=== PATIENT | male | born 1950 | race Caucasian/White ===

== ENCOUNTER → 2019-12-10 11:53 | Outpatient (BNVA) | payer MEDICARE, OTHER, SELFPAY | PROVIDERS: Family Provider Family Medicine; PCP Family Medicine; Visit Provider Nurse Practitioner Family | DX: I95.2 Hypotension due to drugs (principal); E11.9 Type 2 diabetes mellitus without complications; E78.5 Hyperlipidemia, unspecified; R23.4 Changes in skin texture; B35.1 Tinea unguium | CPT/HCPCS: 36415; 80053; 80061; 83036; 84439; 84443 ==

== ENCOUNTER 2020-01-20 15:43 | Outpatient (CLI) | payer MEDICARE, OTHER, SELFPAY ==
--- NOTE | 2020-01-20 16:30 | USCV_ITS ---
AdriannaJona Age: 69 Gender: M : 1950 Exam Date: 01/20/2020 16:22 Ordering Phys: Carolyn Vaughn MD ([email or web address]) Technologist: Radha Rodriguez Exam Location: [facility] – [place] Indication: AV STENOSIS BP: 197 / 113 HR: 88 Rhythm: Sinus Technical Quality: Fair MEASUREMENTS (Male / Female) Normal Values 2D ECHO LV Diastolic Diameter PLAX 4.8 cm 4.2 - 5.9 / 3.9 - 5.3 cm LV Systolic Diameter PLAX 3.4 cm IVS Diastolic Thickness 1.2 cm 0.6 - 1.0 / 0.6 - 0.9 cm IVS Systolic Thickness 1.8 cm LVPW Diastolic Thickness 1.2 cm 0.6 - 1.0 / 0.6 - 0.9 cm LVPW Systolic Thickness 1.6 cm LVOT Diameter 2.0 cm LV Ejection Fraction 2D Teich 57.3 % LV Ejection Fraction MOD 2C 74.5 % LV Ejection Fraction 2C AL 76.2 % LA Diameter 4.5 cm LA Width 3.2 cm LA Height 4.1 cm RA Width 3.4 cm RA Height 2.3 cm Aorta at Sinotubular Diameter 3.3 cm M-MODE LV Diastolic Diameter MM 5.2 cm 4.2 - 5.9 / 3.9 - 5.3 cm LV Systolic Diameter MM 3.8 cm LV Ejection Fraction MM Teich 51.0 % IVS Diastolic Thickness MM 1.2 cm 0.6 - 1.0 / 0.6 - 0.9 cm IVS Systolic Thickness MM 1.6 cm LVPW Diastolic Thickness MM 1.1 cm 0.6 - 1.0 / 0.6 - 0.9 cm LVPW Systolic Thickness MM 1.6 cm Aortic Annulus Diameter 2.9 cm LA Ao Ratio MM 1.6 MV E Point Septal Separation 0.5 cm DOPPLER AV Peak Velocity 250.0 cm/s LVOT Peak Velocity 90.0 cm/s AV Area Cont Eq vti 1.0 cm squared AV Area Cont Eq pk 1.2 cm squared MV Area PHT 3.5 cm squared Mitral E to A Ratio 0.7 MV E' Velocity 7.0 cm/s Mitral E to MV E' Ratio 11.0 Mitral E to LV E' Lateral Ratio 13.0 Mitral E to LV E' Septal Ratio 9.6 TR Peak Velocity 261.2 cm/s TR Peak Gradient 27.3 mmHg TR Mean Velocity 196.1 cm/s TR Mean Gradient 16.3 mmHg TR Velocity Time Integral 74.4 cm TV Peak E Velocity 72.0 cm/s Right Atrial Pressure 3.0 mmHg Pulmonary Artery Systolic Pressu 30.3 mmHg PV Peak Velocity 67.0 cm/s RV Acceleration Time 0.1 s RV Ejection Time 0.3 s RV AcT/ET 0.4 FINDINGS Left Ventricle Normal left ventricular cavity size. Mildly increased left ventricular wall thickness. Normal left ventricular systolic function. Left ventricular ejection fraction is estimated at 62 %. No regional wall motion abnormalities. Grade 1 diastolic dysfunction. Right Ventricle Normal right ventricular size and systolic function. Right ventricular systolic pressure 30.3 mmHg. Right Atrium Right atrium not well visualized. Right atrial pressure estimated at 3 mmHg. Left Atrium Left atrium not well visualized. Probably upper normal left atrial size. Mitral Valve Mild mitral annular calcification. No mitral valve stenosis. Mild mitral valve regurgitation. Aortic Valve Moderately thickened and calcified trileaflet aortic valve. Moderate aortic valve stenosis, peak velocity 2.5 m/s, peak gradient 24 mmHg, mean gradient 14 mmHg, RAAD 0.99 cm squared. Mild aortic valve regurgitation. Tricuspid Valve Structurally normal tricuspid valve. No tricuspid valve stenosis. Mild tricuspid valve regurgitation. Pulmonic Valve Pulmonic valve not well visualized. Trace pulmonary valve regurgitation. Pericardium No pericardial effusion. Aorta Normal-sized aortic root. Ascending aorta mildly dilated measured anteroposteriorly at 38 mm. CONCLUSIONS 1. Normal left ventricular cavity size with mildly increased left ventricular wall thickness. Normal left ventricular systolic function. Left ventricular ejection fraction is estimated at 62 %. No regional wall motion abnormalities. Grade 1 diastolic dysfunction. 2. Normal right ventricular size and systolic function. 3. Mild mitral valve regurgitation. 4. Moderate aortic valve stenosis, peak velocity 2.5 m/s, peak gradient 24 mmHg, mean gradient 14 mmHg, RAAD 0.99 cm squared. Mild aortic valve regurgitation. 5. Pulmonary artery pressure estimated at 30 mmHg. 6. When compared to prior echocardiogram dated 09/29/2018, there may not have been any significant change. Carolyn Vaughn MD (Electronically Signed) Final Date: 24 January 2020 10:58 S
== END 2020-01-20 15:44 | disposition home or self-care (01) ==
LOC: US 15:45
PROVIDERS: Family Provider Family Medicine; PCP Family Medicine; Visit Provider Internal Medicine Cardiovascular Disease
DX: I08.3 Combined rheumatic disorders of mitral, aortic and tricuspid valves (principal)
CPT/HCPCS: 93306

== ENCOUNTER → 2020-04-27 09:11 | Outpatient (BNVA) | payer MEDICARE, OTHER, SELFPAY | PROVIDERS: Family Provider Family Medicine; PCP Family Medicine; Referring Provider Family Medicine; Visit Provider Podiatrist Foot & Ankle Surgery | DX: M25.571 Pain in right ankle and joints of right foot (principal); L97.309 Non-pressure chronic ulcer of unspecified ankle with unspecified severity; M21.41 Flat foot [pes planus] (acquired), right foot | CPT/HCPCS: 73610 ==

== ENCOUNTER 2020-06-01 06:59 | Outpatient (CLI) | payer MEDICARE, OTHER, SELFPAY ==
--- NOTE | 2020-06-01 07:20 | NMCV_ITS ---
NM anish perf SPECT r/s* [id number] Jona Rodas Age: 69 Gender: M : 1950 Exam Date: 06/01/2020 08:42 Ordering Phys: Carolyn Vaughn MD ([email or web address]) Technologist: JUDY Alonzo Exam Location: [facility] Indications: DYSPNEA ON EXERTION STRESS TEST Please see separate stress test report in [facility] for full findings IMAGE PROTOCOL Rest/Stress 1 Lexiscan Day Radiopharmaceutical Dose (mCi) Administration Site Administered by Rest: Tc-99m 10.9 IV JUDY Brock Sestamibi Stress:Tc-99m 32.9 IV JUDY Brock Sestamibi Rest: 01-Jun-2020 60 Discovery 630 Stress: 01-Jun-2020 30 Discovery 630 0.4mg Lexiscan. Supine position only as patient was unable to lay prone. SPECT RESULTS Technical Quality: Excellent Raw Data Analysis: Normal Image Corrections: No attenuation or motion correction applied Summed Stress Score: 8 Summed Rest Score: 4 Summed Difference Score: 4 PERFUSION FINDINGS Medium sized perfusion abnormality of mild to moderate severity of basal to mid inferior, mid inferoseptal, apical septal and apical ibrahim on rest images with mild reversibility in mid inferoseptal and mid to apical inferolateral ibrahim. FUNCTIONAL RESULTS (calculated via Gated SPECT) Stress Image LV EF (%): 39 Stress EDV (mL):187 TID: 1.04 Stress ESV (mL):114 FUNCTIONAL FINDINGS: The left ventricle is normal in size. Transient Ischemia Dilatation of 1. There is moderately reduced left ventricular global systolic function. The left ventricular ejection fraction is moderately reduced with a value of 39%. There is moderate hypokinesis of inferior and apical ibrahim. Moderately increased end-diastolic and end-systolic volumes. IMPRESSIONS 1. Medium sized perfusion abnormality of mild to moderate severity of basal to mid inferior, mid inferoseptal, apical septal and apical ibrahim on rest images with mild reversibility in mid inferoseptal and mid to apical inferolateral ibrahim. 2. 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 There is small reversible ischemia in circumflex artery territory. In absence of prone imaging, attenuation artifact cannot be completely ruled out. 3. The left ventricular ejection fraction is moderately reduced with a value of 39%. 4. There is moderate hypokinesis of inferior and apical ibrahim. 5. Scan indicates low to moderate risk for cardiac events. 6. No prior similar studies to compare. Carolyn Vaughn MD (Electronically Signed) Final Date: 05 June 2020 13:04 S
--- NOTE | 2020-06-01 07:20 | ECG_ITS ---
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 Interpretive Statements NAME OF STUDY: LEXISCAN SESTAMIBI STRESS TEST INDICATION: HILL PROCEDURE: At the baseline, the blood pressure was 181/102 mmHg with a heart rate of 88 bpm. The electrocardiogram showed normal sinus rhythm, right bundle branch block and left anterior fascicular block. The Lexiscan was infused over a period of 20 seconds. A total of 0.4 milligrams of Lexiscan was infused. The stress phase was continued for a total of 5 minutes. Heart rate at the end of the stress phase was 88 bpm with a blood pressure 149/83 mmHg. The EKG at the peak infusion revealed no significant ST-T wave changes. Sestamibi was injected 20 seconds after the Lexiscan infusion. Blood pressure at the end of the recovery phase was 148/85 mmHg with a heart rate of 90 beats per minute. CONCLUSION: 1. No significant EKG changes with the LexiScan infusion. 2. No LexiScan induced chest pain or cardiac arrhythmia. 3. Normal blood pressure and heart rate response. 4. Sestamibi/sestamibi perfusion scan pending; see separate report. Electronically Signed On 06-02-2020 13:15:30 CDT by Carolyn Vaughn M.D. [id number]
[2020-06-01 07:49] VITALS: BMI 30.9
[2020-06-01] MEDS: regadenoson 0.4 Mg/5 ml Syringe IVP ×2 (09:26→09:55)
[2020-06-01 09:58] VITALS: BP 148/85; PULSE 84
== END 2020-06-01 07:00 | disposition home or self-care (01) ==
PROVIDERS: Family Provider Family Medicine; PCP Family Medicine; Visit Provider Internal Medicine Cardiovascular Disease
DX: R06.00 Dyspnea, unspecified (principal)
CPT/HCPCS: 78452; 93017; A9500; J2785

== ENCOUNTER → 2020-06-27 09:40 | Outpatient (BNVA) | payer MEDICARE, OTHER, SELFPAY | PROVIDERS: Family Provider Family Medicine; PCP Family Medicine; Visit Provider Family Medicine | DX: E11.9 Type 2 diabetes mellitus without complications (principal); I10 Essential (primary) hypertension; E11.65 Type 2 diabetes mellitus with hyperglycemia; Z79.4 Long term (current) use of insulin | CPT/HCPCS: 83036 ==

== ENCOUNTER → 2020-08-07 08:49 | Outpatient (BNVA) | payer MEDICARE, OTHER, SELFPAY | PROVIDERS: Family Provider Family Medicine; PCP Family Medicine; Visit Provider Nurse Practitioner Family | DX: Z20.828 Contact with and (suspected) exposure to other viral communicable diseases (principal) | CPT/HCPCS: 87635 ==

== ENCOUNTER 2020-12-05 14:21 | Emergency (ER) | payer MEDICARE, OTHER, SELFPAY ==
[2020-12-05 14:25] VITALS: BP 139/80; PULSE 87; RESP 18; TEMP 36.6; O2SAT 92; BMI 31.5
[2020-12-05 14:33] VITALS: BP 139/80; PULSE 93; RESP 18; O2SAT 92
--- NOTE | 2020-12-05 14:41 | ECG_ITS ---
[facility] Test Date: 2020-12-05 Pat Name: Jona Rodas Department: Room: Gender: Male Development Intern: : 1950 Requested By: Maxi Rudolph Order Number: [id number] Hong MD: Carolyn Vaughn M.D. Measurements Intervals [place] Rate: 86 P: 40 LA: 126 QRS: -47 QRSD: 140 T: 24 QT: 392 QTc: 470 Interpretive Statements SINUS RHYTHM INTRAVENTRICULAR CONDUCTION DELAY [130+ ms QRS DURATION] MODERATE VOLTAGE CRITERIA FOR LVH, CONSIDER NORMAL VARIANT [MEETS CRITERIA IN ONE OF: R(aVL), S(V1), R(V5), R(V5/V6)+S(V1)] POSSIBLE SEPTAL MYOCARDIAL INFARCTION , OF INDETERMINATE AGE [30 ms Q WAVE IN V1/V2] Compared to ECG 08/23/2019 12:06:48 Myocardial infarct finding now present Ventricular premature complex(es) no longer present Left-axis deviation no longer present Electronically Signed On 12-05-2020 19:58:47 [employer] by Carolyn Vaughn M.D. [email or web address]
--- NOTE | 2020-12-05 14:41 | XRR_ITS ---
PROCEDURE INFORMATION: Exam: XR Chest, 1 View Exam date and time: 12/05/2020 3:05 PM Age: 70 years old Clinical indication: Other: Tia/ reduced breath sounds TECHNIQUE: Imaging protocol: XR of the chest Views: 1 view. COMPARISON: CR Chest 1 [place] [id number] 08/23/2019 11:46 AM FINDINGS: Lungs: Low lung volumes are seen. The lungs are otherwise clear. No consolidation. Pleural space: Elevation of the right hemidiaphragm is seen. No pleural effusion. No pneumothorax. Heart/Mediastinum: Unremarkable. No cardiomegaly. Bones/joints: Metallic left shoulder arthroplasty is present in good position. Other findings: This finding is stable since prior examination. XR/XR chest 1V portable [id number] IMPRESSION: 1. Elevation of the right hemidiaphragm. 2. Low lung volumes. 3. Negative for acute abnormalities. 4. Stable metallic left shoulder arthroplasty in good position
--- NOTE | 2020-12-05 14:41 | CT_ITS ---
WS: [id number] CT HEAD NONCONTRAST HISTORY: Symptoms of Acute Stroke TECHNIQUE: Contiguous axial imaging performed through the brain in 2.5 mm imaging. Bone and soft tiss ue windows. Sagittal and coronal reformats reviewed. All CT scans at [facility] use at le ast one of these dose optimization techniques: automated exposure control; mA and/or kV adjustment pe r patient size (includes targeted exams where dose is matched to clinical indication); or iterative r econstruction. DLP: 3401.81 mGy.cm COMPARISON: 08/23/2019 This study significantly limited by motion artifact. 3 attempts at achieving study without motion wer e unsuccessful. There are no large areas of hemorrhage. Small hemorrhage would easily be obscured. There is significant atrophy and chronic white matter disease. Most significant ischemic changes in t he RIGHT frontal white matter. Ventricles: Normal size with no hydrocephalus. Paranasal sinuses: As visualized are clear. Mastoid air cells: Well pneumatized. Calvarium and scalp: Skull is intact with no soft tissue edema or swelling. CT/CT head wo con* [id number] IMPRESSION: 1. This study is significantly limited by motion despite multiple attempts. He morrhage and acute areas of ischemia would easily be obscured. 2. Atrophy and chronic ischemic disease.
--- NOTE | 2020-12-05 14:45 | ED_ITS ---
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 He says he has a cataract in that eye however he usually has poor vision out of that eye but today his eye went dark for a few minutes. He called EMS and by the time they got there his vision was returning and is now normal. He offers no new symptoms in the ER at this time. He said he was last seen for this right carotid artery issue by Dr. Mazariegos a couple years ago who recommended not operating on it as well as the blindness last happened 2 years ago and they said it was likely related to his stroke. Radiation: non-radiation Severity: moderate Associated symptoms: Reports no associated symptoms; Deny chest pain, confusion, dyspnea, headache(s), rash or palpitations Review of Systems General: Reports: 10 or more systems reviewed and unremarkable except in HPI and below Const: Denies: fatigue Eyes: Denies: change in vision, blurry vision or eye redness ENMT: Denies: throat pain, swelling of lips/tongue, ear or mastoid pain or nasal congestion Card: Denies: chest pain, palpitations, irregular heart rhythm, edema, dyspnea on exertion or orthopnea Resp: Denies: dyspnea, productive cough or non-productive cough GI: Denies: abdominal pain, diarrhea or GI cramping : Denies: flank pain, urinary frequency or urinary urgency Musc: Denies: neck pain, back pain, extremity pain, joint pain, joint redness, limited range of motion or muscle weakness Skin/Breast: Denies: rash, pruritus, erythema, skin pain or skin tenderness Neuro: Denies: headache(s), numbness in extremities, weakness in extremities, sensory changes, difficulty walking, dizziness, confusion or Slurred speech present Psych: Denies: anxiety or depression Endo: Denies: polyuria All/Imm: Denies: urticaria, throat swelling or tongue swelling PFSH ED PFSH: Medical History (Updated 12/05/20 @ 20:25 by Maxi Rudolph MD) Aortic stenosis, moderate BPH without obstruction/lower urinary tract symptoms Hodgkin disease Hyperlipidemia Hypertension PVD (peripheral vascular disease) Type 2 diabetes mellitus with hyperglycemia Surgical History History of arthroscopic knee surgery LEFT History of carpal tunnel surgery BILATERAL History of radical dissection of right side of neck History of shoulder surgery MULTIPLE ON LEFT History of total knee replacement RIGHT Family History Father Hypertension Parkinson disease Brother Diabetes Social History Smoking and tobacco status: former smoker Quit status (tobacco): has quit using tobacco Former quit date comment: AT AGE 21 Alcohol intake: never Physical Exam Const: COMMON NORMALS: no acute distress, average body habitus, patient oriented x3, no limitations, healthy appearing, alert and well nourished GENERAL APPEARANCE: cooperative, comfortable, well kempt and well developed ORIENTATION/CONSCIOUSNESS: Yes awake, Yes oriented to person, Yes oriented to place and Yes oriented to time HENMT: COMMON NORMALS: normocephalic, external ears normal and Normal external nose present HEAD & SCALP: normal to inspection and normocephalic NOSE: Normal external nose present EXTERNAL EAR: Yes external ears normal MOUTH: Normal oral and palatal mucosa present THROAT: posterior oropharynx normal Eye: COMMON NORMALS: Equal, round and reactive pupils present and EOMs intact bilaterally GENERAL EYE: appearance normal, both eyes and all related structures PUPIL: Yes Equal, round and reactive pupils present Neck/C-Spine: COMMON NORMALS: full ROM, no lymphadenopathy, no meningeal signs and no JVD GENERAL: Yes normal visual inspection Lymph: LYMPHATIC: no lymphadenopathy noted Chest: COMMONS NORMALS: normal inspection of the chest and normal palpation of entire chest wall Resp: COMMON NORMALS: normal respiratory effort, No retractions, No use of acc essory muscles, clear to auscultation bilaterally and percussion normal EFFORT & INSPECTION: Yes able to speak in complete sentences AUSCULTATION: clear to auscultation bilaterally PERCUSSION: percussion normal Cardio: COMMON NORMALS: no JVD, regular rate, regular rhythm, S1 normal heart sound present, S2 normal heart sound present and Peripheral pulses 2+ throughout RATE: regular rate RHYTHM: regular rhythm HEART SOUNDS: S1 normal heart sound present and S2 normal heart sound present PERIPHERAL PULSES: Peripheral pulses 2+ throughout GI: COMMON NORMALS: Normal to inspection, nondistended, normoactive bowel sounds present, Soft to palpation, non-tender and no masses INSPECTION: Yes normal to inspection PALPATION: Yes Soft to palpation : COMMON NORMALS: Yes no CVA tenderness BLADDER/KIDNEY EXAM: Yes no CVA tenderness Back/Pelvis: COMMON NORMALS: no CVA tenderness, thoracic and lumbar spine normal to inspection, no thoracic nor lumbar tenderness and thoraco-lumbar ROM normal Extremity: COMMON NORMALS: normal to inspection, full ROM, capillary refill normal, no joint enlargement and no pedal edema GENERAL: Yes normal exam except as noted Neuro: COMMON NORMALS: patient oriented x3, CN's II-XII intact bilaterally, moves all extremities, no focal motor deficits, no sensory deficits noted and gait normal SENSORIUM/ORIENTATION: Yes alert, Yes oriented to person, Yes oriented to place and Yes oriented to time MENINGEAL SIGNS: Yes no meningeal signs OTHER: He has chronic poor vision in his right eye but he is able to read small print in the eye such as my name from the ID tag with the other eye covered. He has chronic right-sided weakness and facial droop with atrophy of muscles in his right upper extremity most prominent. He says the weakness is unchanged from his baseline. He is normally able to walk around his house just fine and he continues to feel that way. Psych: COMMON NORMALS: mental status grossly normal, Normal thought process present, cooperative, normal affect and speech normal APPEARANCE: Yes well kempt ATTITUDE: Yes calm SPEECH: Yes normal speech THOUGHT PROCESS: Normal thought process present Skin: COMMON NORMALS: no rashes or lesions noted GENERAL SKIN EXAM: no rashes or lesions noted Course ED course: The patient came in with a 3-minute episode of right-sided blindness at home. 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 This is stable from the previous head and neck CT angiogram. He has already been told that this cannot be corrected. Discussed with Dr. Purvis who recommended since the symptoms have resolved to start him on Plavix 75 mg daily for 3 weeks and have him follow-up with an respiratory therapy instructor. I have placed a case management referral to help with this. If symptoms return he is to return to the ER. He understands and will follow plan. Vital Signs: Vital signs: Vital Signs Temperature 97.9 F 12/05/20 14:25 Pulse Rate 87 12/05/20 20:42 Respiratory Rate 18 12/05/20 20:42 Blood Pressure 170/95 12/05/20 20:42 Pulse Oximetry 94 12/05/20 20:42 MDM - General Adult Lab Data: Labs: Lab Results 12/05/20 12/05/20 12/05/20 Range/Units 14:40 14:40 14:40 WBC 13.8 H (4.0-10.0) 10^3/ uL RBC 4.27 (4.1-5.3) 10^6/u L Hgb 13.7 (11.7-16.6) g/dL Hct 41.0 L (42.0-52.0) % MCV 96.0 H (80-94) fL MCH 32.1 (28.0-34.0) pg MCHC 33.4 (30.0-36.0) g/dL RDW 11.9 L (12.1-15.1) % Plt Count 282 (130-400) 10^3/c mm MPV 9.0 (7.4-10.4) fL Neut % (Auto) 74.4 % Lymph % (Auto) 12.4 % [place] % (Auto) 10.6 % Eos % (Auto) 1.5 % Baso % (Auto) 0.5 % Neut # (Auto) 10.27 H (1.8-7.7) 10^3/u L Lymph # (Auto) 1.7 (0.8-4.8) 10^3/u L [place] # (Auto) 1.5 H (0.2-0.9) 10^3/u L Eos # (Auto) 0.2 (0.0-0.8) 10^3/u L Baso # (Auto) 0.1 (0.0-0.1) 10^3/u L Nucleated RBC % (a uto) 0 % Nucleated RBCs # 0.0 /100WBC ESR (0-10) mm/hr PT 14.00 (12.1-14.9) SECO NDS INR 1.05 (0.8-1.2) APTT 29.0 (23.9-36.7) SECO NDS Sodium 132 L (136-145) mmol/L Potassium 3.7 (3.5-5.1) mmol/L Chloride 93 L (98-107) mmol/L Carbon Dioxide 30 H (22-29) mmol/L Anion Gap 12.7 (5-19) BUN 14 (8-23) mg/dL Creatinine 1.0 (0.7-1.2) mg/dL GFR Calculation 74.1 L (90-130) mL/min Glucose 89 (65-115) mg/dL POC Glucose (70-110) mg/dL Calculated Osmolal ity 274 L (285-295) mOsm/k g Calcium 9.8 (8.5-10.5) mg/dL Total Bilirubin 0.7 (0.15-1.2) mg/dL AST 27 (0-40) U/L ALT 23 (0-41) U/L Alkaline Phosphata se 56 (40-130) IU/L Total Protein 6.7 (6.6-8.7) g/dL Albumin 4.0 (3.5-5.2) g/dL Globulin 2.7 (1.3-4.6) g/dL Urine Color (Yellow) Urine Appearance (CLEAR) Urine pH (5-7) Ur Specific Gravit y (1.005-1.030) Urine Protein (Negative) Urine Glucose (UA) (Normal) Urine Ketones (Negative) Urine Blood (Negative) Urine Nitrate (Negative) Urine Bilirubin (Negative) Urine Urobilinogen (Negative) mg/dL Ur Leukocyte Brittney ase (Negative) Urine Opiates Scre en (Negative) ng/mL Ur Barbiturates Sc reen (Negative) ng/mL Ur Phencyclidine S crn (Negative) ng/mL Ur Amphetamines Sc reen (Negative) ng/mL U Benzodiazepines Scrn (Negative) ng/mL Urine Cocaine Scre en (Negative) ng/mL U Marijuana (THC) Screen (Negative) ng/mL 12/05/20 12/05/20 12/05/20 Range/Units 14:40 14:58 16:30 WBC (4.0-10.0) 10^3/ uL RBC (4.1-5.3) 10^6/u L Hgb (11.7-16.6) g/dL Hct (42.0-52.0) % MCV (80-94) fL MCH (28.0-34.0) pg MCHC (30.0-36.0) g/dL RDW (12.1-15.1) % Plt Count (130-400) 10^3/c mm MPV (7.4-10.4) fL Neut % (Auto) % Lymph % (Auto) % [place] % (Auto) % Eos % (Auto) % Baso % (Auto) % Neut # (Auto) (1.8-7.7) 10^3/u L Lymph # (Auto) (0.8-4.8) 10^3/u L [place] # (Auto) (0.2-0.9) 10^3/u L Eos # (Auto) (0.0-0.8) 10^3/u L Baso # (Auto) (0.0-0.1) 10^3/u L Nucleated RBC % (a uto) % Nucleated RBCs # /100WBC ESR 14 H (0-10) mm/hr PT (12.1-14.9) SECO NDS INR (0.8-1.2) APTT (23.9-36.7) SECO NDS Sodium (136-145) mmol/L Potassium (3.5-5.1) mmol/L Chloride (98-107) mmol/L Carbon Dioxide (22-29) mmol/L Anion Gap (5-19) BUN (8-23) mg/dL Creatinine (0.7-1.2) mg/dL GFR Calculation (90-130) mL/min Glucose (65-115) mg/dL POC Glucose 90 (70-110) mg/dL Calculated Osmolal ity (285-295) mOsm/k g Calcium (8.5-10.5) mg/dL Total Bilirubin (0.15-1.2) mg/dL AST (0-40) U/L ALT (0-41) U/L Alkaline Phosphata se (40-130) IU/L Total Protein (6.6-8.7) g/dL Albumin (3.5-5.2) g/dL Globulin (1.3-4.6) g/dL Urine Color (Yellow) Urine Appearance (CLEAR) Urine pH (5-7) Ur Specific Gravit y (1.005-1.030) Urine Protein (Negative) Urine Glucose (UA) (Normal) Urine Ketones (Negative) Urine Blood (Negative) Urine Nitrate (Negative) Urine Bilirubin (Negative) Urine Urobilinogen (Negative) mg/dL Ur Leukocyte Brittney ase (Negative) Urine Opiates Scre en Negative (Negative) ng/mL Ur Barbiturates Sc reen Negative (Negative) ng/mL Ur Phencyclidine S crn Negative (Negative) ng/mL Ur Amphetamines Sc reen Negative (Negative) ng/mL U Benzodiazepines Scrn Negative (Negative) ng/mL Urine Cocaine Scre en Negative (Negative) ng/mL U Marijuana (THC) Screen Positive H (Negative) ng/mL 12/05/20 Range/Units 16:31 WBC (4.0-10.0) 10^3/ uL RBC (4.1-5.3) 10^6/u L Hgb (11.7-16.6) g/dL Hct (42.0-52.0) % MCV (80-94) fL MCH (28.0-34.0) pg MCHC (30.0-36.0) g/dL RDW (12.1-15.1) % Plt Count (130-400) 10^3/c mm MPV (7.4-10.4) fL Neut % (Auto) % Lymph % (Auto) % [place] % (Auto) % Eos % (Auto) % Baso % (Auto) % Neut # (Auto) (1.8-7.7) 10^3/u L Lymph # (Auto) (0.8-4.8) 10^3/u L [place] # (Auto) (0.2-0.9) 10^3/u L Eos # (Auto) (0.0-0.8) 10^3/u L Baso # (Auto) (0.0-0.1) 10^3/u L Nucleated RBC % (a uto) % Nucleated RBCs # /100WBC ESR (0-10) mm/hr PT (12.1-14.9) SECO NDS INR (0.8-1.2) APTT (23.9-36.7) SECO NDS Sodium (136-145) mmol/L Potassium (3.5-5.1) mmol/L Chloride (98-107) mmol/L Carbon Dioxide (22-29) mmol/L Anion Gap (5-19) BUN (8-23) mg/dL Creatinine (0.7-1.2) mg/dL GFR Calculation (90-130) mL/min Glucose (65-115) mg/dL POC Glucose (70-110) mg/dL Calculated Osmolal ity (285-295) mOsm/k g Calcium (8.5-10.5) mg/dL Total Bilirubin (0.15-1.2) mg/dL AST (0-40) U/L ALT (0-41) U/L Alkaline Phosphata se (40-130) IU/L Total Protein (6.6-8.7) g/dL Albumin (3.5-5.2) g/dL Globulin (1.3-4.6) g/dL Urine Color Yellow (Yellow) Urine Appearance Clear (CLEAR) Urine pH 7 (5-7) Ur Specific Gravit y 1.010 (1.005-1.030) Urine Protein Neg (Negative) Urine Glucose (UA) 2+ (Normal) Urine Ketones Negative (Negative) Urine Blood Neg (Negative) Urine Nitrate Negative (Negative) Urine Bilirubin Neg (Negative) Urine Urobilinogen Norm (Negative) mg/dL Ur Leukocyte Brittney ase Negative (Negative) Urine Opiates Scre en (Negative) ng/mL Ur Barbiturates Sc reen (Negative) ng/mL Ur Phencyclidine S crn (Negative) ng/mL Ur Amphetamines Sc reen (Negative) ng/mL U Benzodiazepines Scrn (Negative) ng/mL Urine Cocaine Scre en (Negative) ng/mL U Marijuana (THC) Screen (Negative) ng/mL Discharge Plan Discharge Patient Disposition: Home Clinical Impression: Acute retinal artery occlusion Condition: Stable Prescriptions: New Plavix 75 mg tablet 75 mg PO DAILY Qty: 21 RF: 0 No Action fenofibrate nanocrystallized 48 mg tablet 48 mg PO QDAY RF: 0 gabapentin 600 mg tablet 600 mg PO .COMPLEX RF: 0 albuterol sulfate [Ventolin HFA] 90 mcg/actuation HFA aerosol inhaler 2 puff INHALATION Q6H PRNRF: 0 naproxen sodium [Aleve] 220 mg capsule 220 mg PO QDAY PRNRF: 0 Complete Multivitamin Tablet 1 tab PO QDAY RF: 0 nitroglycerin [Nitrostat] 0.4 mg tablet, sublingual 0.4 mg SUBLINGUAL Q5M PRNRF: 0 lisinopril 40 mg tablet 20 mg PO .hs Qty: 45 RF: 3 fluticasone propion-salmeterol [Advair Diskus] 250-50 mcg/dose blister with device 1 inh INHALATION BID PRN (Reason: sob) Qty: 60 RF: 5 mupirocin 2 % ointment 1 applic TOPICAL TID 10 Days Qty: 22 RF: 1 ketoconazole 2 % cream 1 applic TOPICAL BID Qty: 30 RF: 1 erythromycin 5 mg/gram (0.5 %) ointment 0.5 inch ophthalmic (eye) BID Qty: 3.5 RF: 5 aspirin 325 mg tablet 325 mg PO DAILY RF: 0 tamsulosin [Flomax] 0.4 mg capsule 0.4 mg PO QDAY Qty: 30 RF: 11 glipizide 10 mg tablet 10 mg PO QDAY Qty: 30 RF: 11 Tresiba FlexTouch U-100 100 unit/mL (3 mL) insulin pen 60 unit SUBCUT QDAY Qty: 15 RF: 3 bimatoprost [Lumigan] 0.01 % drops See Rx Instructions .ROUTE .COMPLEX Qty: 5 RF: 4 (DME) OneTouch Ultra Blue Test Strip Strip See Rx Instructions .ROUTE .MEDSUPPLY Qty: 200 RF: 3 Discharge Orders: Discharge ED (Routine); Ordered 12/05/20 Ordered By: Maxi Rudolph Referrals: Hamzah Chavez DO [Primary Care Provider] - Discharge Diet: Advance as tolerated Discharge Activity: Resume usual activity Patient Instructions: Transient Ischemic Attack (ED) Activity Restrictions/Additional Instructions: You had a brief episode of blindness like likely from an occlusion of your retinal artery. This is like a stroke for your eye. Thankfully it has since gone away. I have discussed with the neurologist your care and she recommended adding Plavix once daily for the next 3 weeks and following up as an outpatient with her and ophthalmology. Please return to the ER if your symptoms return and we will have you evaluated again. Otherwise follow-up with ophthalmology and neurology. Coding Level of Care Code ED Machine Iii Coremaker for Keesha Fwd Exam Comprehensive
[2020-12-05 15:00] LABS: Glucose Point of Care 90 mg/dL (70-110)
[2020-12-05 15:04] VITALS: BP 139/80; PULSE 84; RESP 18; O2SAT 94
[2020-12-05 15:14] LABS: Basophils # 0.1 10^3/uL (0.0-0.1); Basophils % 0.5 %; Eosinophils # 0.2 10^3/uL (0.0-0.8); Eosinophils % 1.5 %; Hemoglobin 13.7 g/dL (11.7-16.6); Lymphocytes # 1.7 10^3/uL (0.8-4.8); Lymphocytes % 12.4 %; Mean Corpuscular HGB Conc 33.4 g/dL (30.0-36.0); Mean Corpuscular Hemoglobin 32.1 pg (28.0-34.0); Monocytes # 1.5 10^3/uL (0.2-0.9); Monocytes % 10.6 %; Neutrophils # 10.27 10^3/uL (1.8-7.7); Neutrophils % 74.4 %; Nucleated Red Blood Cells % 0 %; Platelet Count 282 10^3/cmm (130-400); Red Blood Count 4.27 10^6/uL (4.1-5.3); Red Cell Distribution Width 11.9 % (12.1-15.1); White Blood Count 13.8 10^3/uL (4.0-10.0)
[2020-12-05 15:26] LABS: INR 1.05 (0.8-1.2)
[2020-12-05 15:33] LABS: Alanine Aminotransferase 23 U/L (0-41); Alkaline Phosphatase 56 IU/L (40-130); Anion Gap 12.7 (5-19); Aspartate Amino Transferase 27 U/L (0-40); Blood Urea Nitrogen 14 mg/dL (8-23); Calcium 9.8 mg/dL (8.5-10.5); Carbon Dioxide 30 mmol/L (22-29); Chloride 93 mmol/L (98-107); Globulin 2.7 g/dL (1.3-4.6); Glomerular Filtration Rate 74.1 mL/min (90-130); Glucose 89 mg/dL (65-115); Osmolality Calculated 274 mOsm/kg (285-295); Potassium 3.7 mmol/L (3.5-5.1); Sodium 132 mmol/L (136-145); Total Bilirubin 0.7 mg/dL (0.15-1.2); Total Protein 6.7 g/dL (6.6-8.7)
--- NOTE | 2020-12-05 15:58 | CTR_ITS ---
PROCEDURE INFORMATION: Exam: CT Angiography Head With Contrast Exam date and time: 12/05/2020 4:05 PM Age: 70 years old Clinical indication: Weakness; Prior surgery; Additional info: Right carotid clot. Right eye blindedness. TECHNIQUE: Imaging protocol: Computed tomography angiography of the head with intravenous contrast. 3D rendering (Not supervised by radiologist): MIP and/or 3D reconstructed images were created by the technologist. Total images: 876 Radiation optimization: All CT scans at this facility use at least one of these dose optimization techniques: automated exposure control; mA and/or kV adjustment per patient size (includes targeted exams where dose is matched to clinical indication); or iterative reconstruction. Contrast material: OMNI 350; Contrast volume: 95 ml; Contrast route: INTRAVENOUS (IV); COMPARISON: CT head wo con* [id number] 12/05/2020 3:20 PM RADIATION DOSE METRICS: Total DLP (mGy-cm): 2678.28 FINDINGS: ANTERIOR CIRCULATION: Right internal carotid artery: Complete occlusion. Right middle cerebral artery: Reconstitution via collateralization. Right anterior cerebral artery: Reconstitution via collateralization. Patent A-comm. Left internal carotid artery: Mild cerebral arteriosclerosis of the internal carotid artery terminus. Intracranial segment is patent with no significant stenosis. No aneurysm. Left middle cerebral artery: Unremarkable. No occlusion or significant stenosis. No aneurysm. Left anterior cerebral artery: Unremarkable. No occlusion or significant stenosis. No aneurysm. POSTERIOR CIRCULATION: Right vertebral artery: Complete occlusion. Partial reconstitution via retrograde filling from the left vertebral artery. Left vertebral artery: Unremarkable. No occlusion or significant stenosis. No aneurysm. Basilar artery: Unremarkable. No occlusion or significant stenosis. No aneurysm. Right posterior cerebral artery: Unremarkable. No occlusion or significant stenosis. No aneurysm. Left posterior cerebral artery: Unremarkable. No occlusion or significant stenosis. No aneurysm. Other findings: Motion artifact. Bilateral superior ophthalmic arteries patent. IMPRESSION: 1. Complete occlusion of the right internal carotid artery. 2. Reconstitution via collateralization of the right middle and right anterior cerebral artery. 3. Mild cerebral arteriosclerosis of the internal carotid artery terminus left internal carotid artery. 4. Complete occlusion of the right vertebral artery with partial reconstitution via retrograde filling. 5. Bilateral superior ophthalmic arteries patent. PROCEDURE INFORMATION: Exam: CT Angiography Neck With Contrast Exam date and time: 12/05/2020 4:05 PM Age: 70 years old Clinical indication: Weakness; Prior surgery; Additional info: Right carotid clot. Right eye blindedness. TECHNIQUE: Imaging protocol: Computed tomography angiography of the neck with intravenous contrast. 3D rendering (Not supervised by radiologist): MIP and/or 3D reconstructed images were created by the technologist. Radiation optimization: All CT scans at this facility use at least one of these dose optimization techniques: automated exposure control; mA and/or kV adjustment per patient size (includes targeted exams where dose is matched to clinical indication); or iterative reconstruction. Contrast material: OMNI 350; Contrast volume: 95 ml; Contrast route: INTRAVENOUS (IV); COMPARISON: 1. CT head wo con* [id number] 12/05/2020 3:20 PM 2. CTA Neck [id number] 10/05/2018 11:47:18 AM RADIATION DOSE METRICS: Total DLP (mGy-cm): 2678.28 FINDINGS: Right common carotid artery: Complete occlusion of the right common carotid artery at its ostium. Right internal carotid artery: Complete occlusion. Right external carotid artery: Complete occlusion. Right vertebral artery: Complete occlusion of the right vertebral artery at its ostium. Left common carotid artery: Artifact prevents adequate evaluation of the origin of the left common carotid artery. Extensive arterial sclerotic disease. The visualized portion of the common carotid artery fails to reveal hemodynamically significant stenosis of 60% or greater. Left internal carotid artery: No hemodynamically significant stenosis of the left internal carotid artery of 60% or greater. There is approximately 40% stenosis at the proximal ICA level. Left external carotid artery: Between 60 and 70% stenosis at the ostium. Left vertebral artery: Left vertebral artery patent without occlusion or hemodynamically significant stenosis. Subclavian arteries: Unable to assess the left subclavian artery due to artifact. Other vasculature: Motion artifact. Artifact limits assessment of the right innominate artery. There is extensive arterial sclerotic disease. There is contrast within the right subclavian artery. Suspected critical stenosis of the right innominate artery of 90% or greater. Thyroid: Thyroid goiter. No follow-up recommended. Bones/joints: Mottled appearance to the cervical and thoracic spine, within the field of view, and cannot exclude metastatic disease versus myeloproliferative disorder versus advanced osteopenia/osteoporosis.. Soft tissues: Previous right sided radical neck resection. Stable left parotid lymph node. CT/CT angio headneck* [id number] IMPRESSION: 1. Again note of complete occlusion of the right common carotid artery at its ostium. 2. Complete occlusion of the right vertebral artery at its ostium. 3. Extensive arterial sclerotic disease. 4. Suspected critical stenosis right innominate artery of 90% or greater. 5. Between 60 and 70% stenosis at the ostium of the left external carotid artery. 6. No visible hemodynamically significant stenosis left internal carotid artery. 7. Limited visualization due to artifact of the aortic arch trunk vessels. 8. Other findings as detailed in text above. REFERENCES: NASCET CRITERIA. The degree of internal carotid artery stenosis is based on NASCET criteria. Normal is no stenosis. Mild is less than 50% stenosis. Moderate is 50-69% stenosis. Severe is 70% to 99% stenosis. Total occlusion is no detectable patent lumen. Radiation Dose CTDIVOL = (mGy): DLP = 2678.28~2678.28 (mGy-cm)
[2020-12-05] MEDS: LORazepam 2 mg/mL INJ 1 mL 0.5 MG IVP (16:03)
[2020-12-05] MEDS: iohexol 350 mg/mL 100 mL Btl IV (16:18)
[2020-12-05 17:00] VITALS: BP 159/88; PULSE 97; RESP 18; O2SAT 92
[2020-12-05] MEDS: clopidogrel 75 mg Tablet PO (17:48)
[2020-12-05 18:16] LABS: Add Urine Microscopic? NO; Urine Appearance Clear (CLEAR); Urine Color Yellow (Yellow); pH Urine 7 (5-7)
[2020-12-05 18:17] LABS: Bilirubin Urine Neg (Negative); Blood Urine Neg (Negative); Glucose Urine UA 2+ (Normal); Ketones Urine Negative (Negative); Leukocyte Esterase Urine Negative (Negative); Nitrate Urine Negative (Negative); Protein Urine Neg (Negative); Urobilinogen Urine Norm (Negative)
[2020-12-05 19:14] VITALS: BP 148/86; PULSE 84; RESP 17; O2SAT 94
[2020-12-05 20:10] LABS: Amphetamines Screen Urine Negative (Negative); Barbiturates Screen Urine Negative (Negative); Benzodiazepines Screen Urine Negative (Negative); Cocaine Screen Urine Negative (Negative); Opiate Screen Urine Negative (Negative); PCP Screen Urine Negative (Negative); THC Screen Urine Positive (Negative)
[2020-12-05 20:13] LABS: Erythrocyte Sedimentation Rate 14 mm/hr (0-10)
[2020-12-05 20:42] VITALS: BP 170/95; PULSE 87; RESP 18; O2SAT 94
--- NOTE | 2020-12-06 08:50 | DCPLANNER ---
mission manager had message to schedule a follow up appointment for patient with ophthamology. mission manager faxed patients records to the office of Dr. Headley, will call for appointment information.
--- NOTE | 2020-12-20 14:53 | DCPLANNER ---
Patient had a follow up appointment scheduled with Dr. Headley, patient did attend appointment.
== END 2020-12-05 20:42 | disposition home or self-care (01) ==
PROVIDERS: Emergency Provider Family Medicine; PCP Family Medicine
DX: H34.9 Unspecified retinal vascular occlusion (principal); Z79.82 Long term (current) use of aspirin; Z79.4 Long term (current) use of insulin; E78.5 Hyperlipidemia, unspecified; I10 Essential (primary) hypertension; E11.9 Type 2 diabetes mellitus without complications; Z87.891 Personal history of nicotine dependence; Z79.899 Other long term (current) drug therapy
CPT/HCPCS: 12345; 36416; 70450; 70496; 70498; 71045; 80053; 80306; 81003; 82962; 85025; 85610; 85651; 85730; 93005; 96374; 99283; 99284; J2060; Q9967

== ENCOUNTER → 2021-03-20 11:34 | Outpatient (BNVA) | payer MEDICARE, OTHER, SELFPAY | PROVIDERS: PCP Family Medicine; Visit Provider Nurse Practitioner Family | DX: M10.9 Gout, unspecified (principal); Z68.29 Body mass index [BMI] 29.0-29.9, adult | CPT/HCPCS: 84550 ==

== ENCOUNTER 2021-06-28 13:09 | Outpatient (CLI) | payer MEDICARE, OTHER, SELFPAY ==
--- NOTE | 2021-06-28 14:15 | USCV_ITS ---
Jona Rodas Age: 70 Gender: M : 1950 Exam Date: 06/28/2021 13:55 Ordering Phys: Carolyn Vaughn MD ([email or web address]) Technologist: Alyson Reed [place] [facility] [place]: NONRHUEMATIC AORTIC VALVE STENOSIS BP: 98 / 65 HR: 110 Rhythm: Sinus Technical Quality: Adequate MEASUREMENTS (Male / Female) Normal Values 2D ECHO LV Diastolic Diameter PLAX 4.6 cm 4.2 - 5.9 / 3.9 - 5.3 cm LV Systolic Diameter PLAX 3.0 cm IVS Diastolic Thickness 1.9 cm 0.6 - 1.0 / 0.6 - 0.9 cm IVS Systolic Thickness 2.0 cm LVPW Diastolic Thickness 1.7 cm 0.6 - 1.0 / 0.6 - 0.9 cm LVPW Systolic Thickness 2.1 cm LVOT Diameter 2.1 cm LV Ejection Fraction 2D Teich 62.4 % LV Ejection Fraction MOD 2C 58.7 % LV Ejection Fraction 2C AL 61.9 % LA Diameter 4.0 cm Aorta at Sinotubular Diameter 3.1 cm M-MODE Aortic Annulus Diameter 3.0 cm LA Ao Ratio MM 1.5 MV E Point Septal Separation 1.1 cm DOPPLER AV Peak Velocity 267.0 cm/s LVOT Peak Velocity 93.0 cm/s AV Area Cont Eq vti 1.5 cm squared AV Area Cont Eq pk 1.2 cm squared MV Area PHT 5.0 cm squared Mitral E to A Ratio 0.5 MV E' Velocity 36.5 cm/s Mitral E to MV E' Ratio 10.0 Mitral E to LV E' Lateral Ratio 7.4 Mitral E to LV E' Septal Ratio 15.6 TR Peak Velocity 259.3 cm/s TR Peak Gradient 26.9 mmHg Right Atrial Pressure 3.0 mmHg Pulmonary Artery Systolic Pressu 29.9 mmHg PV Peak Velocity 94.0 cm/s RV Acceleration Time 0.1 s RV Ejection Time 0.2 s RV AcT/ET 0.4 FINDINGS Left Ventricle Normal left ventricular cavity size. Increased left ventricular wall thickness. Normal left ventricular systolic function. Left ventricular ejection fraction is estimated at 60 %. Grade I diastolic dysfunction (abnormal relaxation filling pattern), normal to mildly elevated filling pressures. Abnormal septal motion consistent with conduction abnormality. Right Ventricle Normal right ventricular size and systolic function. Right ventricular systolic pressure 30 mmHg. Right Atrium Right atrium not well visualized. Left Atrium Mildly increased left atrial size. Mitral Valve Moderate mitral annular calcification. Mildly thickened mitral valve. No mitral valve stenosis. Trace mitral valve regurgitation. Aortic Valve Moderately thickened and calcified aortic valve. Possibly moderate aortic valve stenosis, peak velocity 2.7 m/s, peak gradient 30 mm Hg, mean gradient 17 mmHg, RAAD 1.3 cm squared (LVOT=20 mm ). [id number] aortic valve regurgitation. Tricuspid Valve Structurally normal tricuspid valve. Pulmonic Valve Pulmonic valve not well visualized. Pericardium No pericardial effusion. Aorta Normal size aortic root and proximal ascending aorta. CONCLUSIONS 1. Normal left ventricular cavity size and systolic function. Increased left ventricular wall thickness. Left ventricular ejection fraction is estimated at 60 %. Grade I diastolic dysfunction (abnormal relaxation filling pattern), normal to mildly elevated filling pressures. 2. Normal right ventricular size and systolic function. 3. Moderately thickened and calcified aortic valve. Possibly moderate aortic valve stenosis, peak velocity 2.7 m/s, peak gradient 30 mm Hg, mean gradient 17 mmHg, RAAD 1.3 cm squared (LVOT=20 mm ). [id number]-[id number] aortic valve regurgitation. 4. When compared to previous echocardiogram dated 01/20/2020, there may not have been any significant change. Carolyn Vaughn MD (Electronically Signed) Final Date: 02 July 2021 10:51 S
== END 2021-06-28 13:10 | disposition home or self-care (01) ==
LOC: RAD 13:12
PROVIDERS: PCP Family Medicine; Visit Provider Internal Medicine Cardiovascular Disease
DX: I35.0 Nonrheumatic aortic (valve) stenosis (principal)
CPT/HCPCS: 93306

== ENCOUNTER → 2021-08-09 09:22 | Outpatient (BNVA) | payer MEDICARE, OTHER, SELFPAY | PROVIDERS: PCP Family Medicine; Visit Provider Nurse Practitioner Family | DX: E11.65 Type 2 diabetes mellitus with hyperglycemia (principal); Z79.4 Long term (current) use of insulin; I10 Essential (primary) hypertension; Z12.5 Encounter for screening for malignant neoplasm of prostate; Z68.29 Body mass index [BMI] 29.0-29.9, adult; E78.2 Mixed hyperlipidemia | CPT/HCPCS: 80053; 80061; 83036; 84439; 84443; 85025; G0103 ==

== ENCOUNTER → 2022-02-01 09:29 | Outpatient (BNVA) | payer MEDICARE, OTHER, SELFPAY | PROVIDERS: PCP Family Medicine; Visit Provider Nurse Practitioner Family | DX: R35.0 Frequency of micturition (principal); E11.622 Type 2 diabetes mellitus with other skin ulcer; E11.65 Type 2 diabetes mellitus with hyperglycemia; L97.309 Non-pressure chronic ulcer of unspecified ankle with unspecified severity; I10 Essential (primary) hypertension; Z79.4 Long term (current) use of insulin | CPT/HCPCS: 80053; 80061; 81000; 83036; 85025 ==

== ENCOUNTER → 2022-05-21 13:15 | Outpatient (BNVA) | payer MEDICARE, OTHER, SELFPAY | PROVIDERS: PCP Family Medicine; Visit Provider Internal Medicine Cardiovascular Disease | DX: I35.0 Nonrheumatic aortic (valve) stenosis (principal); I49.3 Ventricular premature depolarization; E11.65 Type 2 diabetes mellitus with hyperglycemia; Z79.4 Long term (current) use of insulin; I10 Essential (primary) hypertension; E78.2 Mixed hyperlipidemia; I73.9 Peripheral vascular disease, unspecified; I65.29 Occlusion and stenosis of unspecified carotid artery; Z87.891 Personal history of nicotine dependence | CPT/HCPCS: 99214 ==

== ENCOUNTER → 2022-08-05 09:59 | Outpatient (BNVA) | payer MEDICARE, OTHER, SELFPAY | PROVIDERS: PCP Family Medicine; Visit Provider Nurse Practitioner Family | DX: I10 Essential (primary) hypertension (principal); E11.65 Type 2 diabetes mellitus with hyperglycemia; Z79.4 Long term (current) use of insulin | CPT/HCPCS: 80053; 80061; 83036 ==

== ENCOUNTER → 2023-01-31 13:37 | Outpatient (BNVA) | payer MEDICARE, OTHER, SELFPAY | PROVIDERS: PCP Family Medicine; Visit Provider Nurse Practitioner Family | DX: I10 Essential (primary) hypertension (principal); E78.2 Mixed hyperlipidemia; E11.65 Type 2 diabetes mellitus with hyperglycemia; Z68.29 Body mass index [BMI] 29.0-29.9, adult; Z79.4 Long term (current) use of insulin | CPT/HCPCS: 80053; 80061; 83036; 84443 ==

== ENCOUNTER → 2023-07-29 09:35 | Outpatient (BNVA) | payer MEDICARE, OTHER, SELFPAY | PROVIDERS: PCP Family Medicine; Visit Provider Nurse Practitioner Family | DX: I10 Essential (primary) hypertension (principal); E11.65 Type 2 diabetes mellitus with hyperglycemia; Z79.4 Long term (current) use of insulin | CPT/HCPCS: 80053; 80061; 83036 ==

== ENCOUNTER → 2023-10-24 09:21 | Outpatient (BNVA) | payer MEDICARE, OTHER, SELFPAY | PROVIDERS: PCP Family Medicine; Visit Provider Nurse Practitioner Family | DX: R60.0 Localized edema (principal) | CPT/HCPCS: 80053; 83880 ==

== ENCOUNTER → 2023-11-21 09:59 | Outpatient (BNVA) | payer MEDICARE, OTHER, SELFPAY | PROVIDERS: PCP Family Medicine; Visit Provider Nurse Practitioner Family | DX: E11.65 Type 2 diabetes mellitus with hyperglycemia (principal) | CPT/HCPCS: 83036 ==

== ENCOUNTER 2024-03-20 08:18 | Inpatient (IN) | payer MEDICARE, OTHER, SELFPAY ==
[2024-03-20] VITALS (60 sets, daily range): BP systolic 67–153; BP diastolic 47–99; PULSE 78–95; RESP 16–31; TEMP 36.6–36.8; O2SAT 79–99; BMI 26.9; BMI 27.7
[2024-03-20 08:37] LABS: Basophils # 0.1 10^3/uL (0.0-0.1); Basophils % 0.3 %; Eosinophils # 0.2 10^3/uL (0.0-0.8); Eosinophils % 1.5 %; Hematocrit 44.9 % (37-53); Lymphocytes # 1.2 10^3/uL (0.8-4.8); Lymphocytes % 7.6 %; Mean Corpuscular HGB Conc 33.9 g/dL (30-55); Mean Corpuscular Hemoglobin 30.6 pg (27-33); Mean Corpuscular Volume 90.5 fl (82-101); Mean Platelet Volume 8.8 fL (7.4-10.4); Monocytes # 0.9 10^3/uL (0.2-0.9); Monocytes % 5.7 %; Neutrophils # 12.73 10^3/uL (1.8-7.7); Neutrophils % 83.9 %; Nucleated Red Blood Cells % 0 %; Platelet Count 305 10^3/cmm (157-399); Red Blood Count 4.96 10^6/uL (3.85-5.65); Red Cell Distribution Width 12.4 % (12.1-15.1); White Blood Count 15.19 10^3/uL (3.29-11.43)
[2024-03-20 08:55] LABS: Alanine Aminotransferase 26 U/L (0-41); Albumin Level 4.5 g/dL (3.5-5.2); Alkaline Phosphatase 145 U/L (40-130); Anion Gap 15.6 (5-19); Aspartate Amino Transferase 43 U/L (0-40); Blood Urea Nitrogen 9 mg/dL (8-23); Calcium 9.5 mg/dL (8.5-10.5); Carbon Dioxide 28 mmol/L (22-29); Chloride 88 mmol/L (98-107); Creatinine Clr Calc Pharmacy 75.0589; Globulin 3.1 g/dL (1.3-4.6); Glucose 98 mg/dL (65-115); Osmolality Calculated 265 mOsm/kg (285-295); Potassium 3.6 mmol/L (3.5-5.1); Sodium 128 mmol/L (136-145); Total Bilirubin 0.8 mg/dL (0.15-1.2); Total Protein 7.6 g/dL (6.6-8.7)
--- NOTE | 2024-03-20 09:51 | ECG_ITS ---
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 Measurements Intervals [place] Rate: 91 P: 39 HI: 156 QRS: -68 QRSD: 194 T: 11 QT: 432 QTc: 534 Interpretive Statements SINUS RHYTHM WITH OCCASIONAL VENTRICULAR PREMATURE COMPLEXES WITH OCCASIONAL SUPRAVENTRICULAR PREMATURE COMPLEXES RIGHT BUNDLE BRANCH BLOCK [120+ ms QRS DURATION, UPRIGHT V1, 40+ ms S IN I/aVL/V4/V5/V6] LEFT ANTERIOR FASCICULAR BLOCK [QRS AXIS <= -45, QR IN I, RS IN II] VOLTAGE CRITERIA FOR LVH [MEETS CRITERIA IN ONE OF: R(aVL), S(V1), R(V5), R(V5/V6)+S(V1)] Compared to ECG 12/05/2020 14:50:32 Ventricular premature complex(es) now present Right bundle-branch block now present Left anterior fascicular block now present Intraventricular conduction delay no longer present Myocardial infarct finding no longer present Electronically Signed On 03-21-2024 12:23:18 CDT by Jeyson Pandya M.D. [id number]
--- NOTE | 2024-03-20 10:07 | CTR_ITS ---
PROCEDURE INFORMATION: Exam: CT Head Without Contrast Exam date and time: 03/20/2024 11:28 AM Age: 73 years old Clinical indication: Injury or trauma; Fall; Blunt trauma (contusions or hematomas); Without loss of consciousness; Additional info: Head trauma TECHNIQUE: Imaging protocol: Computed tomography of the head without contrast. Radiation optimization: All CT scans at this facility use at least one of these dose optimization techniques: automated exposure control; mA and/or kV adjustment per patient size (includes targeted exams where dose is matched to clinical indication); or iterative reconstruction. COMPARISON: CT angio headneck* [id number] 12/05/2020 4:04 PM RADIATION DOSE METRICS: Total DLP (mGy-cm): 1157.75 FINDINGS: Brain: Stable encephalomalacia involving the right frontal lobe. Mild nonspecific white matter low attenuation which may be related to microvascular ischemic changes. No acute confluent lobar ischemic infarct. No acute intracranial hemorrhage. Stable right cerebellar calcification. Stable bilateral basal ganglia calcification. Cerebral ventricles: The ventricles and sulci are prominent in size compatible with mild atrophy. Paranasal sinuses: Visualized sinuses are unremarkable. No fluid levels. Mastoid air cells: Visualized mastoid air cells are well aerated. Bones: Unremarkable. No acute fracture. Soft tissues: Visualized soft tissues are unremarkable. CT/CT head wo con* [id number] IMPRESSION: No acute intracranial abnormality.
--- NOTE | 2024-03-20 10:07 | ED_ITS ---
HPI - Weakness 2 General: Chief complaint: Weakness Stated complaint: ALL OVER PAIN S/P FALL Time Seen by Provider: 03/20/24 08:21 Source: patient Mode of arrival: ambulatory History of Present Illness: 73-year-old male presents emergency room after a fall at home he fell twice this morning is complaining of myalgias all over. He hit his head there is no loss of consciousness. He is not on any anticoagulants beyond a full-size adult aspirin daily. MD Complaint: generalized weakness Associated symptoms: Denies chest pain, chills, dysuria or fever(s) Review of Systems 2 Const: Denies: fever(s) or chills Card: Denies: chest pain Resp: Denies: dyspnea GI: Denies: abdominal pain : Denies: dysuria, urinary frequency or urinary urgency Musc: Denies: neck pain or back pain Skin/Breast: Denies: rash PFSH ED 2 PFSH: Medical History Carotid stenosis 100% occlusion of the right internal carotid artery and right vertebral. 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 Family History Father Hypertension Parkinson disease Brother Diabetes Social History Smoking and tobacco/nicotine status: former use of tobacco/nicotine Quit status (tobacco/nicotine): has quit using Former quit date comment: AT AGE 21 Alcohol intake: never Substance/Drug Use: never Physical Exam 2 Const: COMMON NORMALS: no acute distress GENERAL APPEARANCE: cooperative and comfortable ORIENTATION/CONSCIOUSNESS: Yes awake, Yes oriented to person, Yes oriented to place and Yes oriented to time HENMT: COMMON NORMALS: normocephalic, atraumatic and hearing grossly normal bilaterally HEAD & SCALP: normocephalic and atraumatic Resp: COMMON NORMALS: normal respiratory effort, No retractions, No use of accessory muscles and clear to auscultation bilaterally AUSCULTATION: clear to auscultation bilaterally Cardio: COMMON NORMALS: regular rate, regular rhythm and No murmurs present (Cardio) RATE: regular rate RHYTHM: regular rhythm GI: COMMON NORMALS: Soft to palpation and No hepatosplenomegaly present A USCULTATION: Yes normoactive bowel sounds PALPATION: Yes Soft to palpation, No Tenderness to palpation present (GI), No Guarding due to palpation present (GI) and Yes No hepatosplenomegaly present Extremity: COMMON NORMALS: normal to inspection, capillary refill normal, no clubbing, cyanosis or edema, no calf tenderness and no pedal edema Neuro: SENSORIUM/ORIENTATION: Yes oriented to person, Yes oriented to place and Yes oriented to time Skin: COMMON NORMALS: no rashes or lesions noted GENERAL SKIN EXAM: no rashes or lesions noted Course 2 Vital Signs: Vital signs: Vital Signs Temperature 98.2 F 03/20/24 08:19 Pulse Rate 82 03/20/24 14:00 Respiratory Rate 18 03/20/24 14:00 Blood Pressure 128/74 03/20/24 14:00 Pulse Oximetry 93 03/20/24 14:00 Oxygen Delivery Me thod Room Air 03/20/24 15:06 MDM - Weakness Medical Decision Making Patient found to have urinary retention and is mildly dehydrated blood pressure improved with IV fluids white count is 15,000. Will admit for mild dehydration urine is still pending to discussed with Dr. Kaur. Orders written. Briseno has been placed. Medical Records I reviewed the patient's medical records. Lab Data I reviewed the patient's lab results. 03/20/24 08:03 03/20/24 08:[address] 03/20/24 10:07 IMPRESSION: No acute intracranial abnormality. Laboratory Results WBC 15.19 10^3/uL (3.29-11.43) H 03/20/24 08:03 RBC 4.96 10^6/uL (3.85-5.65) 03/20/24 08:03 Hgb 15.20 g/dL (11.27-16.99) 03/20/24 08:03 Hct 44.9 % (37-53) 03/20/24 08:03 MCV 90.5 fl (82-101) 03/20/24 08:03 MCH 30.6 pg (27-33) 03/20/24 08:03 MCHC 33.9 g/dL (30-55) 03/20/24 08:03 RDW 12.4 % (12.1-15.1) 03/20/24 08:03 Plt Count 305 10^3/cmm (157-399) 03/20/24 08:03 MPV 8.8 fL (7.4-10.4) 03/20/24 08:03 Neut % (Auto) 83.9 % 03/20/24 08:03 Lymph % (Auto) 7.6 % 03/20/24 08:03 [place] % (Auto) 5.7 % 03/20/24 08:03 Eos % (Auto) 1.5 % 03/20/24 08:03 Baso % (Auto) 0.3 % 03/20/24 08:03 Neut # (Auto) 12.73 10^3/uL (1.8-7.7) H 03/20/24 08:03 Lymph # (Auto) 1.2 10^3/uL (0.8-4.8) 03/20/24 08:03 [place] # (Auto) 0.9 10^3/uL (0.2-0.9) 03/20/24 08:03 Eos # (Auto) 0.2 10^3/uL (0.0-0.8) 03/20/24 08:03 Baso # (Auto) 0.1 10^3/uL (0.0-0.1) 03/20/24 08:03 Nucleated RBC % (auto) 0 % 03/20/24 08:03 Nucleated RBCs # 0.0 /100WBC 03/20/24 08:03 Sodium 128 mmol/L (136-145) L 03/20/24 08:03 Potassium 3.6 mmol/L (3.5-5.1) 03/20/24 08:03 Chloride 88 mmol/L (98-107) L 03/20/24 08:03 Carbon Dioxide 28 mmol/L (22-29) 03/20/24 08:03 Anion Gap 15.6 (5-19) 03/20/24 08:03 BUN 9 mg/dL (8-23) 03/20/24 08:03 Creatinine 1.1 mg/dL (0.7-1.2) 03/20/24 08:03 GFR Calculation Not Reportable 03/20/24 08:03 Glucose 98 mg/dL (65-115) 03/20/24 08:03 Calculated Osmolality 265 mOsm/kg (285-295) L 03/20/24 08:03 Lactic Acid 1.4 mmol/L (0.5-2.2) 03/20/24 11:52 Calcium 9.5 mg/dL (8.5-10.5) 03/20/24 08:03 Magnesium 1.8 mg/dL (1.7-2.3) 03/20/24 08:03 Total Bilirubin 0.8 mg/dL (0.15-1.2) 03/20/24 08:03 AST 43 U/L (0-40) H 03/20/24 08:03 ALT 26 U/L (0-41) 03/20/24 08:03 Alkaline Phosphatase 145 U/L (40-130) H 03/20/24 08:03 Creatine Kinase 635 U/L (39-308) H* 03/20/24 08:03 Total Protein 7.6 g/dL (6.6-8.7) 03/20/24 08:03 Albumin 4.5 g/dL (3.5-5.2) 03/20/24 08:03 Globulin 3.1 g/dL (1.3-4.6) 03/20/24 08:03 Lipase 21 U/L (13-60) 03/20/24 08:03 Procalcitonin 0.07 ng/mL (0-0.5) 03/20/24 08:03 TSH 4.37 uIU/mL (0.27-4.20) H 03/20/24 08:03 All radiology interpretation(s) finalized by discharge Discharge Plan Discharge Patient Disposition: Placed in Observation Admit Provider: Alexus Kaur Clinical Impression: Dehydration, Acute urinary retention Coding Level of Care Code ED Casket Liner for Keesha Bhatia
[2024-03-20] MEDS: sodium chloride 0.9% 1,000 ML 999 ML IV ×2 (10:23→14:48)
[2024-03-20 10:45] LABS: Creatine Phosphokinase 635 U/L (39-308)
--- NOTE | 2024-03-20 11:27 | PC.PHAR ---
pt states he takes care of his own medications-pt also brought medications in-pt states he takes gabapentin 600mg qpm rx filled 600mg tid on 02/20/24 30d/s-
[2024-03-20 11:36] LABS: Lipase 21 U/L (13-60); Magnesium 1.8 mg/dL (1.7-2.3)
[2024-03-20 12:29] LABS: Lactic Sepsis W/Reflex 1.4 mmol/L (0.5-2.2)
--- NOTE | 2024-03-20 12:52 | P.HP_ITS ---
Providers/Chief Complaint 2 Primary Care Provider: Hamzah Chavez DO Chief Complaint: ALL OVER PAIN S/P FALL History of Present Illness Jona Rodas is a 73 year old male Medications/Allergies Home Medications Medication Instructions Recorded Confirmed Last Taken Type aspirin 325 mg tablet 325 mg PO DAILY 05/03/20 03/20/24 Unknown History blood sugar diagnostic (OneTouch #200 ea 11/09/20 03/20/24 Unknown Rx Ultra Blue Test Strip) pen needle, diabetic 31 gauge x #100 ea 07/02/22 03/20/24 Unknown Rx 01/30 (Lite Touch Insulin Pen [place]) albuterol sulfate 90 mcg/actuation 2 puff inhalation Q6H PRN 07/15/22 03/20/24 Unknown Rx aerosol inhaler (Ventolin HFA) shortness of breath or wheezing #6.7 grams hydrochlorothiazide 25 mg tablet 25 mg PO QAM #90 tabs 03/11/24 03/20/24 03/20/24 Rx Bresaltec Inhaler See Rx Instructions .Route .COMPLEX 03/20/24 03/20/24 Unknown History Mens Vitacraves Gummies 1 tab PO DAILY 03/20/24 03/20/24 Unknown History bimatoprost 0.01 % eye drops 1 drp ophthalmic (eye) DAILY 03/20/24 03/20/24 Unknown History (Lumigan) emollient combination no.121 (Gold See Rx Instructions .Route .COMPLEX 03/20/24 03/20/24 Unknown History Botello Healing lotion) fenofibrate nanocrystallized 48 mg 48 mg PO QPM 03/20/24 03/20/24 Unknown History tablet fluticasone 250 mcg-salmeterol 50 1 inh inhalation BID 03/20/24 03/20/24 Unknown History mcg/dose blistr powdr for inhalation (Advair Diskus) gabapentin 600 mg tablet 600 mg PO QPM 03/20/24 03/20/24 Unknown History glipizide 10 mg tablet 10 mg PO QAM 03/20/24 03/20/24 03/20/24 History ibuprofen 200 mg tablet 400 mg PO Q6H PRN Pain 03/20/24 03/20/24 03/20/24 History insulin degludec 100 unit/mL (3 60 unit SUBCUT QAM 03/20/24 03/20/24 03/20/24 History mL) subcutaneous pen (Tresiba FlexTouch U-100 insulin) ketoconazole 2 % topical cream 1 applic topical BID PRN unknown 03/20/24 03/20/24 Unknown History lisinopril 20 mg tablet 20 mg PO QAM 03/20/24 03/20/24 03/20/24 History naproxen sodium 220 mg tablet 440 mg PO BID PRN Pain 03/20/24 03/20/24 03/20/24 History (Aleve) nitroglycerin 0.4 mg sublingual 0.4 mg sublingual Q5M PRN Chest 03/20/24 03/20/24 Unknown History tablet (Nitrostat) Pain tamsulosin 0.4 mg capsule 0.4 mg PO QPM 03/20/24 03/20/24 Unknown History Allergies Allergy/AdvReac Type Severity Reaction Status Date / Time allopurinol Allergy ADR-Nausea Verified 11/21/23 09:07 metformin Allergy ADR-Nausea Verified 11/21/23 09:07 pravastatin Allergy ALGY-Joint Verified 11/21/23 09:07 Pain PFSH Acute 2 PFSH: Medical History Carotid stenosis 100% occlusion of the right internal carotid artery and right vertebral. 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 Family History Father Hypertension Parkinson disease Brother Diabetes Social History Smoking and tobacco/nicotine status: former use of tobacco/nicotine Quit status (tobacco/nicotine): has quit using Former quit date comment: AT AGE 21 Alcohol intake: never Substance/Drug Use: never Vitals/I&O/Wt Last Vital Signs Temp 98.2 F 03/20/24 08:19 Pulse 92 03/20/24 10:26 Resp 17 03/20/24 08:19 BP 140/85 03/20/24 11:30 Pulse Ox 92 03/20/24 11:35 O2 Del Method Room Air 03/20/24 10:26 Weight last 48 hrs Weight 95.254 kg Data 03/20/24 08:03 03/20/24 08:03 Micro: Microbiology 03/20/24 11:56 Blood Culture - Preliminary Blood SPECIMEN COLLECTED 03/20/24 11:52 Blood Culture - Preliminary Blood SPECIMEN COLLECTED Coding Level of Care Code Acute Code for Chg Jannette
[2024-03-20 14:01] LABS: Procalcitonin 0.07 ng/mL (0-0.5); Thyroid Stimulating Hormone 4.37 uIU/mL (0.27-4.20)
--- NOTE | 2024-03-20 14:23 | PM.HP ---
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 Patient stating that he was in his usual state of health until last 2 to 3 weeks when he was struggling to use his right leg he woke up around 2 AM, could not go to sleep, he was in his front room was try to get back inside when lost balance and toppled over his walker, he did not lose consciousness no chest or shortness of breath. Patient is stating that he was struggling to put weight on his right leg for quite some time and now he is not able to lift his leg against gravity. In the ER he was experiencing back pain and urinary tension. I have requested MRI of lumbar region. Briseno catheter has been placed. 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, melanoma which caused facial nerve injury and he also has complete occlusion of right carotid Review of Systems Const: Denies: fever(s) Eyes: Denies: change in vision ENMT: Denies: throat pain Card: Denies: chest pain Resp: Denies: dyspnea GI: Denies: abdominal pain Medications/Allergies Home Medications Medication Instructions Recorded Confirmed Last Taken Type aspirin 325 mg tablet 325 mg PO DAILY 05/03/20 03/20/24 Unknown History blood sugar diagnostic (OneTouch #200 ea 11/09/20 03/20/24 Unknown Rx Ultra Blue Test Strip) pen needle, diabetic 31 gauge x #100 ea 07/02/22 03/20/24 Unknown Rx 01/30 (Lite Touch Insulin Pen [place]) albuterol sulfate 90 mcg/actuation 2 puff inhalation Q6H PRN 07/15/22 03/20/24 Unknown Rx aerosol inhaler (Ventolin HFA) shortness of breath or wheezing #6.7 grams hydrochlorothiazide 25 mg tablet 25 mg PO QAM #90 tabs 03/11/24 03/20/24 03/20/24 Rx Bresaltec Inhaler See Rx Instructions .Route .COMPLEX 03/20/24 03/20/24 Unknown History Mens Vitacraves Gummies 1 tab PO DAILY 03/20/24 03/20/24 Unknown History bimatoprost 0.01 % eye drops 1 drp ophthalmic (eye) DAILY 03/20/24 03/20/24 Unknown History (Lumigan) emollient combination no.121 (Gold See Rx Instructions .Route .COMPLEX 03/20/24 03/20/24 Unknown History Botello Healing lotion) fenofibrate nanocrystallized 48 mg 48 mg PO QPM 03/20/24 03/20/24 Unknown History tablet fluticasone 250 mcg-salmeterol 50 1 inh inhalation BID 03/20/24 03/20/24 Unknown History mcg/dose blistr powdr for inhalation (Advair Diskus) gabapentin 600 mg tablet 600 mg PO QPM 03/20/24 03/20/24 Unknown History glipizide 10 mg tablet 10 mg PO QAM 03/20/24 03/20/24 03/20/24 History ibuprofen 200 mg tablet 400 mg PO Q6H PRN Pain 03/20/24 03/20/24 03/20/24 History insulin degludec 100 unit/mL (3 60 unit SUBCUT QAM 03/20/24 03/20/24 03/20/24 History mL) subcutaneous pen (Tresiba FlexTouch U-100 insulin) ketoconazole 2 % topical cream 1 applic topical BID PRN unknown 03/20/24 03/20/24 Unknown History lisinopril 20 mg tablet 20 mg PO QAM 03/20/24 03/20/24 03/20/24 History naproxen sodium 220 mg tablet 440 mg PO BID PRN Pain 03/20/24 03/20/24 03/20/24 History (Aleve) nitroglycerin 0.4 mg sublingual 0.4 mg sublingual Q5M PRN Chest 03/20/24 03/20/24 Unknown History tablet (Nitrostat) Pain tamsulosin 0.4 mg capsule 0.4 mg PO QPM 03/20/24 03/20/24 Unknown History Allergies Allergy/AdvReac Type Severity Reaction Status Date / Time allopurinol Allergy ADR-Nausea Verified 11/21/23 09:07 metformin Allergy ADR-Nausea Verified 11/21/23 09:07 pravastatin Allergy ALGY-Joint Verified 11/21/23 09:07 Pain PFSH Acute PFSH: Medical History Carotid stenosis 100% occlusion of the right internal carotid artery and right vertebral. 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 Family History Father Hypertension Parkinson disease Brother Diabetes Social History Smoking and tobacco/nicotine status: former use of tobacco/nicotine Quit status (tobacco/nicotine): has quit using Former quit date comment: AT AGE 21 Alcohol intake: never Substance/Drug Use: never Vitals/I&O/Wt Last Vital Signs Temp 98.2 F 03/20/24 08:19 Pulse 82 03/20/24 14:00 Resp 18 03/20/24 14:00 BP 128/74 03/20/24 14:00 Pulse Ox 93 03/20/24 14:00 O2 Del Method Room Air 03/20/24 10:26 03/19/24 03/20/24 03/20/24 22:59 06:59 14:59 Intake Total 1000 / 1000 Balance 1000 / 1000 Weight last 48 hrs Weight 95.254 kg Physical Exam Narrative: Right hemiparesis Only able to wiggle toes of right leg Better strength of left side as compared to right Chronic left-sided facial droop Awake and alert Nonfocal exam Currently on room air Hemodynamic stable Mild dehydration Muscle mass loss S1, S2 Abdomen soft Briseno catheter in place Urinary Catheter Management: Briseno: Cath Placed During This Visit: yes Urinary Catheter Date of Insertion: 03/20/24 Urinary Catheter Time of Insertion: 14:21 Data 03/20/24 08:03 03/20/24 08:03 Micro: Microbiology 03/20/24 11:56 Blood Culture - Preliminary Blood SPECIMEN COLLECTED 03/20/24 11:52 Blood Culture - Preliminary Blood SPECIMEN COLLECTED A&P Assessment and plan (1) Aortic stenosis, moderate: (2) Carotid stenosis: (3) Type 2 diabetes mellitus with hyperglycemia: Qualifiers: 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 insulin use: with remote computer terminal operator use Qualified Code(s): E11.65 - Type 2 diabetes mellitus with hyperglycemia; Z79.4 - senior living (current) use of insulin (4) Dehydration: (5) Urinary retention: (6) Acute urinary retention: (7) Back pain: Plan Sustained a fall, back pain, urinary tension, Briseno catheter placed IV fluid hydration Opioids along bowel regimen Rule out cauda equina will request MRI Does not have typical features of cauda equina on clinical exam Patient seems to have chronic right-sided weakness left-sided facial droop Eat regular diet Will add DVT prophylaxis with heparin Patient's history of BPH as well, he will also need urology referral at the time of discharge Check PSA Uses a walker, lives with his , Patient is stating that he is DNR/DNI Attestations Medical Necessity Statement*: Depending on MRI report further plan will be made however I am anticipating patient will be discharged within 48 hours in case there is no sign of cauda equina on MRI Diagnoses Aortic stenosis, moderate I35.0 Carotid stenosis I65.29 Type 2 diabetes mellitus with hyperglycemia, with long-term current use of insulin E11.65; Z79.4 Diabetes mellitus chcf insulin use: with chcf use Dehydration E86.0 Urinary retention R33.9 Acute urinary retention R33.8 Back pain M54.9
[2024-03-20 14:42] LABS: Add Urine Microscopic? NO; Charge for UA Resulting for Rev
[2024-03-20 15:11] LABS: Urine Appearance Clear (CLEAR); Urine Color Yellow (Yellow); pH Urine 6.5 (5-7)
[2024-03-20 15:12] LABS: Bilirubin Urine Neg (Negative); Blood Urine Neg (Negative); Glucose Urine UA Norm (Normal); Ketones Urine Negative (Negative); Leukocyte Esterase Urine Negative (Negative); Nitrate Urine Negative (Negative); Protein Urine Neg (Negative); Urobilinogen Urine Norm (Negative)
--- NOTE | 2024-03-20 15:15 | PC.PT ---
Pt. refused PT at this time due to inability to move R LE without extreme pain. PT will reattempt evaluation after cleared via imaging.
--- NOTE | 2024-03-20 16:01 | CTR_ITS ---
PROCEDURE INFORMATION: Exam: CT Lumbar Spine Without Contrast Exam date and time: 03/20/2024 5:25 PM Age: 73 years old Clinical indication: Low back pain TECHNIQUE: Imaging protocol: Computed tomography of the lumbar spine without contrast. Radiation optimization: All CT scans at this facility use at least one of these dose optimization techniques: automated exposure control; mA and/or kV adjustment per patient size (includes targeted exams where dose is matched to clinical indication); or iterative reconstruction. COMPARISON: No relevant prior studies available. RADIATION DOSE METRICS: Total DLP (mGy-cm): 994.5 FINDINGS: Bones/joints: Acute mild compression fracture of superior L3 with a mildly displaced anterior superior corner fracture. 10% loss of vertical height. Slight posterior wedging of L5 is most likely chronic and developmental. Mild degenerative endplate changes at all lumbar levels. Disc space narrowing at L4-L5 and L5-S1. Mild anterior degenerative subluxation of L4 on L5. The facets are intact with hypertrophic degenerative changes, greatest at L4-L5 and L5-S1. Old posterior right 10th rib fracture. Mildly displaced fracture in the tip of the right L5 transverse process. Mildly displaced comminuted fracture in the lateral right sacral ala. Minimally displaced fracture in the lateral left sacral ala. benign bone islands in the bilateral iliac bones. L1-L2: No significant disc bulge or herniation. No severe spinal canal stenosis. No significant neural foraminal narrowing. L2-L3: Mild posterior disc bulge. No foraminal stenosis. Hypertrophic facets. Severe spinal canal stenosis. L3-L4: Mild circumferential disc bulge. No foraminal stenosis. Hypertrophic facets. Severe spinal canal stenosis. L4-L5: Posterior disc bulge. No foraminal stenosis. Hypertrophic facets. Severe spinal canal stenosis. L5-S1: Mild posterior disc bulge. Mild bilateral bony foraminal stenosis. No central canal stenosis. Soft tissues: Unremarkable. Other findings: Elevation of the right diaphragm. CT/CT lumbar spine wo con* [id number] IMPRESSION: 1. Acute mild L3 compression fracture. 2. Acute appearing sacral ala fractures. 3. Acute right L5 transverse process fracture. 4. Degenerative changes with severe spinal canal stenosis at multiple lumbar levels.
--- NOTE | 2024-03-20 16:01 | CTR_ITS ---
PROCEDURE INFORMATION: Exam: CT Cervical Spine Without Contrast Exam date and time: 03/20/2024 5:20 PM Age: 73 years old Clinical indication: Neck pain; Additional info: Cauda equina TECHNIQUE: Imaging protocol: Computed tomography of the cervical spine without contrast. Radiation optimization: All CT scans at this facility use at least one of these dose optimization techniques: automated exposure control; mA and/or kV adjustment per patient size (includes targeted exams where dose is matched to clinical indication); or iterative reconstruction. COMPARISON: CT angio headneck* [id number] 12/05/2020 4:04 PM RADIATION DOSE METRICS: Total DLP (mGy-cm): 165.87 FINDINGS: Bones/joints: The cervical vertebral body heights are maintained. Normal alignment. C2-C3: No significant disc bulge or herniation. No severe spinal canal stenosis. No significant neuroforaminal narrowing. C3-C4: Broad-based disc osteophyte complex with mild central canal stenosis. Mild bilateral neuroforaminal narrowing secondary to uncovertebral and facet hypertrophy. C4-C5: Broad-based disc osteophyte complex with mild central canal stenosis. The bilateral neuroforamina are patent. C5-C6: Broad-based disc osteophyte complex with mild central canal stenosis. The bilateral neuroforamina are patent. C6-C7: Broad-based disc osteophyte complex with mild central canal stenosis. Bilateral neuroforamina are patent. C7-T1: The spinal canal is patent. The bilateral neuroforamina are patent. Lungs: Lung apices are normal. Soft tissues: Heterogeneous thyroid gland with nodules and calcifications. The thyroid gland would be better assessed with thyroid ultrasound if clinically warranted. Question right neck surgical dissection. Recommend correlation with surgical history. CT/CT cervical spin wo con* [id number] IMPRESSION: No acute bony abnormality. If symptoms persist, consider further evaluation with MRI, if MRI is clinically safe to obtain. COMMENTS: Consistent with the [employer]'s Incidental Findings Committee white paper (J Am Oumar Radiol 2015): In patients aged 35 years and older with an incidental thyroid nodule equal to or greater than 1.[address], MRI or extrathyroidal US, further evaluation with dedicated thyroid US is recommended for patients with normal life expectancy and without comorbidities. For smaller nodules without suspicious features, no further evaluation or follow up is recommended.
[2024-03-20 16:21] LABS: Lactic Sepsis W/Reflex 1.2 mmol/L (0.5-2.2)
[2024-03-20 16:24] LABS: Glucose Point of Care 121 mg/dL (70-110)
[2024-03-20] MEDS: heparin 5,000 unit/mL INJ 1 mL 5000 UNIT SUBCUT (16:42)
[2024-03-20] MEDS: sodium chloride 0.9% 1,000 ML 75 ML IV ×2 (16:43→23:54)
[2024-03-20] MEDS: dexamethasone 4 mg Tablet PO ×2 (17:55→21:22)
[2024-03-20] MEDS: tamsulosin 0.4 mg Capsule 0.400000000000000022 MG PO (17:55)
[2024-03-20] MEDS: morphine 4 mg/mL SDV 1 mL 2 MG IVP (19:48)
[2024-03-20 21:07] LABS: Glucose Point of Care 219 mg/dL (70-110)
[2024-03-20] MEDS: insulin lispro 100 unit/1 mL SUBCUT (21:22)
[2024-03-21] VITALS (9 sets, daily range): BP systolic 109–164; BP diastolic 87–108; PULSE 72–110; RESP 16–23; TEMP 36.6–37; O2SAT 92
[2024-03-21] MEDS: heparin 5,000 unit/mL INJ 1 mL 5000 UNIT SUBCUT ×2 (01:29→12:12)
[2024-03-21] MEDS: morphine 4 mg/mL SDV 1 mL 2 MG IVP ×2 (01:29→08:29)
[2024-03-21] MEDS: lisinopril 20 mg Tablet PO (05:44)
[2024-03-21 06:25] LABS: Glucose Point of Care 200 mg/dL (70-110)
--- NOTE | 2024-03-21 07:01 | P.PN_ITS ---
Subjective 2 Subjective: Patient this morning is able to move his right leg Briseno catheter in place which was placed in the ER Signs of dehydration improving Patient is stating that his pain is unbearable Spine fracture noted on CT scan, Dr. Sanchez consulted Patient wants to stay 1 more day for pain management Vitals/I&O/Wt Last Vital Signs Temp 97.8 F 03/21/24 04:00 Pulse 97 03/21/24 06:00 Resp 19 H 03/21/24 04:00 BP 109/89 03/21/24 04:00 Pulse Ox 92 03/21/24 04:00 O2 Del Method Room Air 03/21/24 04:00 03/20/24 03/21/24 03/21/24 22:59 06:59 14:59 Intake Total 1720 / 2720 538.75 / 3258.75 Output Total 3100 / 3100 Balance 1720 / 2720 -2561.25 / 158.75 Weight last 48 hrs Weight 98.43 kg Weight 98.067 kg Weight 95.254 kg Physical Exam 2 Narrative: Able to move his right leg today as compared to yesterday Briseno catheter in place Signs of dehydration improving Hemodynamically stable Currently on room air Nonfocal neuroexam He has chronic right-sided weakness Chronic left-sided facial droop Urinary Catheter Management: Briseno: Cath Placed During This Visit: yes Reason for Continuing Indwelling Catheter: Acute Urinary Retention or Obstruction Urinary Catheter Date of Insertion: 03/20/24 Urinary Catheter Time of Insertion: 14:21 Data 03/20/24 08:03 03/20/24 08:03 Micro: Microbiology 03/20/24 11:56 Blood Culture - Preliminary Blood SPECIMEN COLLECTED 03/20/24 11:52 Blood Culture - Preliminary Blood SPECIMEN COLLECTED A&P Assessment and plan (1) Hypertension: Qualifiers: Hypertension type: essential hypertension Qualified Code(s): I10 - Essential (primary) hypertension (2) Aortic stenosis, moderate: (3) Frequent PVCs: (4) PVD (peripheral vascular disease): (5) Carotid stenosis: (6) Type 2 diabetes mellitus with hyperglycemia: Qualifiers: Diabetes mellitus terminal clerk insulin use: with alf use Qualified Code(s): E11.65 - Type 2 diabetes mellitus with hyperglycemia; Z79.4 - bed bug exterminator (current) use of insulin (7) Urinary retention: (8) Dehydration: (9) Acute urinary retention: (10) Spine fracture: Plan Signs of dehydration improving Discontinue IV fluids Patient is able to tolerate p.o. at diet Spine fracture noted on CT scan Not able to get MRI because of metal in his eye Will request Dr. Sanchez for further evaluation Continue opioids Urinary tension requiring Briseno catheter Patient is complaining of excruciating pain He will need 1 more day for pain control, adding opioids for bowel regimen DNR/DNI Discharge on Friday He does not want to go to [facility] Attestations 2 Medical Necessity Statement*: Discharge tomorrow Diagnoses Essential hypertension I10 Hypertension type: essential hypertension Aortic stenosis, moderate I35.0 Frequent PVCs I49.3 PVD (peripheral vascular disease) I73.9 Carotid stenosis I65.29 Type 2 diabetes mellitus with hyperglycemia, with long-term current use of insulin E11.65; Z79.4 Diabetes mellitus terminal clerk insulin use: with terminal clerk use Urinary retention R33.9 Dehydration E86.0 Acute urinary retention R33.8 Spine fracture
[2024-03-21 07:28] LABS: Basophils % 0.1 %; Hematocrit 42.4 % (37-53); Lymphocytes # 0.7 10^3/uL (0.8-4.8); Lymphocytes % 9.7 %; Mean Corpuscular HGB Conc 34.2 g/dL (30-55); Mean Corpuscular Hemoglobin 30.5 pg (27-33); Mean Corpuscular Volume 89.1 fl (82-101); Mean Platelet Volume 8.9 fL (7.4-10.4); Monocytes # 0.2 10^3/uL (0.2-0.9); Monocytes % 2.7 %; Neutrophils # 6.46 10^3/uL (1.8-7.7); Nucleated Red Blood Cells % 0 %; Platelet Count 294 10^3/cmm (157-399); Red Blood Count 4.76 10^6/uL (3.85-5.65); Red Cell Distribution Width 12.1 % (12.1-15.1); White Blood Count 7.43 10^3/uL (3.29-11.43)
--- NOTE | 2024-03-21 07:31 | ECG_ITS ---
[facility] Test Date: 2024-03-21 Pat Name: Jona Rodas Department: Room: 276 Gender: Male Manager Outpatient: : [id number] Requested By: Keisha Baker Order Number: [id number] Gely MD: Jeyson Pandya M.D. Measurements Intervals [place] Rate: 101 P: 40 GA: 174 QRS: -66 QRSD: 179 T: 36 QT: 399 QTc: 519 Interpretive Statements SINUS TACHYCARDIA WITH OCCASIONAL SUPRAVENTRICULAR PREMATURE COMPLEXES RIGHT BUNDLE BRANCH BLOCK [120+ ms QRS DURATION, UPRIGHT V1, 40+ ms S IN I/aVL/V4/V5/V6] LEFT ANTERIOR FASCICULAR BLOCK [QRS AXIS <= -45, QR IN I, RS IN II] Compared to ECG 03/20/2024 09:51:28 Sinus rhythm no longer present Ventricular premature complex(es) no longer present Left ventricular hypertrophy no longer present Electronically Signed On 03-21-2024 12:40:33 CDT by Jeyson Pandya M.D. [id number]
[2024-03-21 07:51] LABS: Alanine Aminotransferase 22 U/L (0-41); Albumin Level 4.1 g/dL (3.5-5.2); Alkaline Phosphatase 120 U/L (40-130); Anion Gap 17.5 (5-19); Aspartate Amino Transferase 35 U/L (0-40); Blood Urea Nitrogen 9 mg/dL (8-23); Calcium 9.3 mg/dL (8.5-10.5); Carbon Dioxide 25 mmol/L (22-29); Chloride 93 mmol/L (98-107); Creatinine Clr Calc Pharmacy 104.7058; Globulin 3.1 g/dL (1.3-4.6); Glucose 187 mg/dL (65-115); Magnesium 1.7 mg/dL (1.7-2.3); Osmolality Calculated 276 mOsm/kg (285-295); Potassium 4.5 mmol/L (3.5-5.1); Sodium 131 mmol/L (136-145); Total Bilirubin 0.9 mg/dL (0.15-1.2); Total Protein 7.2 g/dL (6.6-8.7)
[2024-03-21] MEDS: insulin lispro 100 unit/1 mL SUBCUT ×4 (08:28→21:51)
[2024-03-21] MEDS: dexamethasone 4 mg Tablet PO ×4 (08:29→21:51)
--- NOTE | 2024-03-21 08:55 | PC.NURSE ---
Pt had multiple episodes of v-tach this shift. Notified Dr. Baker. EKGs obtained. Visualized by Dr. Kaur. Amio bolus and transfer to CSU.
[2024-03-21] MEDS: amiodarone 150 MG/100 ML PREMIX 400 MG IV (09:12)
[2024-03-21] MEDS: sodium chloride 0.9% 1,000 ML 75 ML IV ×2 (09:13→21:54)
--- NOTE | 2024-03-21 11:49 | PC.NURSE ---
Pt transferred to [facility] in CSU.
[2024-03-21 12:04] LABS: Glucose Point of Care 203 mg/dL (70-110)
[2024-03-21 16:58] LABS: Glucose Point of Care 256 mg/dL (70-110)
[2024-03-21] MEDS: gabapentin 300 mg Capsule 600 MG PO (17:36)
[2024-03-21] MEDS: tamsulosin 0.4 mg Capsule 0.400000000000000022 MG PO (17:36)
[2024-03-21 20:52] LABS: Glucose Point of Care 250 mg/dL (70-110)
[2024-03-22] VITALS (9 sets, daily range): BP systolic 121–173; BP diastolic 86–109; PULSE 69–92; RESP 16–22; TEMP 36.4–36.9; O2SAT 93–96
[2024-03-22] MEDS: heparin 5,000 unit/mL INJ 1 mL 5000 UNIT SUBCUT ×2 (01:25→13:04)
[2024-03-22] MEDS: simethicone 80 mg Chew PO (03:41)
[2024-03-22 05:12] LABS: Basophils % 0.1 %; Hematocrit 41.8 % (37-53); Lymphocytes # 0.8 10^3/uL (0.8-4.8); Lymphocytes % 5.5 %; Mean Corpuscular HGB Conc 34.2 g/dL (30-55); Mean Corpuscular Hemoglobin 30.9 pg (27-33); Mean Corpuscular Volume 90.3 fl (82-101); Mean Platelet Volume 8.8 fL (7.4-10.4); Monocytes # 0.9 10^3/uL (0.2-0.9); Monocytes % 5.9 %; Neutrophils # 13.21 10^3/uL (1.8-7.7); Neutrophils % 87.8 %; Nucleated Red Blood Cells % 0 %; Platelet Count 281 10^3/cmm (157-399); Red Blood Count 4.63 10^6/uL (3.85-5.65); Red Cell Distribution Width 12.4 % (12.1-15.1); White Blood Count 15.03 10^3/uL (3.29-11.43)
[2024-03-22] MEDS: lisinopril 20 mg Tablet PO (05:22)
[2024-03-22 05:32] LABS: Anion Gap 14.3 (5-19); Blood Urea Nitrogen 15 mg/dL (8-23); Calcium 8.9 mg/dL (8.5-10.5); Carbon Dioxide 27 mmol/L (22-29); Chloride 95 mmol/L (98-107); Glucose 192 mg/dL (65-115); Osmolality Calculated 280 mOsm/kg (285-295); Potassium 4.3 mmol/L (3.5-5.1); Sodium 132 mmol/L (136-145)
[2024-03-22 05:33] LABS: Creatinine Clr Calc Pharmacy 104.7058
[2024-03-22] MEDS: ipratropium-albuterol 3 mL Neb INHALATION (05:39)
[2024-03-22 06:31] LABS: Glucose Point of Care 210 mg/dL (70-110)
--- NOTE | 2024-03-22 07:26 | P.CONIM_ITS ---
Providers/Reason For Consult 2 Consulting Physician/Specialty*: Hospitalist Reason for Consult*: Spine fracture Attending Physician: Keisha Baker MD Primary Care Provider: Hamzah Chavez DO History of Present Illness History of Present Illness Jona Rodas is a 73 year old male who fell at [facility] on January 10. And subsequently fell couple days ago at his house. Patient stated when he fell [place] for like he cracked his back. Patient stated that he was able to walk before this most recent fall. Right leg has weakness at this time. Patient does things little bit better. Review of Systems 2 Const: Denies: fever(s) Eyes: Denies: change in vision ENMT: Denies: throat pain Card: Denies: chest pain Resp: Denies: dyspnea GI: Denies: abdominal pain Medications/Allergies Home Medications Medication Instructions Recorded Confirmed Last Taken Type aspirin 325 mg tablet 325 mg PO DAILY 05/03/20 03/20/24 Unknown History blood sugar diagnostic (OneTouch #200 ea 11/09/20 03/20/24 Unknown Rx Ultra Blue Test Strip) pen needle, diabetic 31 gauge x #100 ea 07/02/22 03/20/24 Unknown Rx 01/30 (Lite Touch Insulin Pen [place]) albuterol sulfate 90 mcg/actuation 2 puff inhalation Q6H PRN 07/15/22 03/20/24 Unknown Rx aerosol inhaler (Ventolin HFA) shortness of breath or wheezing #6.7 grams hydrochlorothiazide 25 mg tablet 25 mg PO QAM #90 tabs 03/11/24 03/20/24 03/20/24 Rx Bresaltec Inhaler See Rx Instructions .Route .COMPLEX 03/20/24 03/20/24 Unknown History Mens Vitacraves Gummies 1 tab PO DAILY 03/20/24 03/20/24 Unknown History bimatoprost 0.01 % eye drops 1 drp ophthalmic (eye) DAILY 03/20/24 03/20/24 Unknown History (Lumigan) emollient combination no.121 (Gold See Rx Instructions .Route .COMPLEX 03/20/24 03/20/24 Unknown History Botello Healing lotion) fenofibrate nanocrystallized 48 mg 48 mg PO QPM 03/20/24 03/20/24 Unknown History tablet fluticasone 250 mcg-salmeterol 50 1 inh inhalation BID 03/20/24 03/20/24 Unknown History mcg/dose blistr powdr for inhalation (Advair Diskus) gabapentin 600 mg tablet 600 mg PO QPM 03/20/24 03/20/24 Unknown History glipizide 10 mg tablet 10 mg PO QAM 03/20/24 03/20/24 03/20/24 History ibuprofen 200 mg tablet 400 mg PO Q6H PRN Pain 03/20/24 03/20/24 03/20/24 History insulin degludec 100 unit/mL (3 60 unit SUBCUT QAM 03/20/24 03/20/24 03/20/24 History mL) subcutaneous pen (Tresiba FlexTouch U-100 insulin) ketoconazole 2 % topical cream 1 applic topical BID PRN unknown 03/20/24 03/20/24 Unknown History lisinopril 20 mg tablet 20 mg PO QAM 03/20/24 03/20/24 03/20/24 History naproxen sodium 220 mg tablet 440 mg PO BID PRN Pain 03/20/24 03/20/24 03/20/24 History (Aleve) nitroglycerin 0.4 mg sublingual 0.4 mg sublingual Q5M PRN Chest 03/20/24 03/20/24 Unknown History tablet (Nitrostat) Pain tamsulosin 0.4 mg capsule 0.4 mg PO QPM 03/20/24 03/20/24 Unknown History Allergies Allergy/AdvReac Type Severity Reaction Status Date / Time allopurinol Allergy ADR-Nausea Verified 11/21/23 09:07 metformin Allergy ADR-Nausea Verified 11/21/23 09:07 pravastatin Allergy ALGY-Joint Verified 11/21/23 09:07 Pain Current Medications Generic Name Dose Route Start Last Admin Trade Name Freq PRN Reason Stop Dose Admin Albuterol/Ipratropium 3 ml 03/20/24 13:29 03/22/24 05:39 Ipratropium-Albuterol 3 Ml Neb INHALATION 3 ml Q6H PRN Administration SHORTNESS OF BREATH Bimatoprost 1 drop 03/21/24 09:00 03/21/24 08:28 Bimatoprost 0.01% Op Soln 2.5 Ml Btl EYE-BOTH 1 drop DAILY KAREL Administration Dexamethasone 4 mg 03/20/24 17:00 03/21/24 21:51 Dexamethasone 4 Mg Tablet PO 4 mg QID KAREL Administration Gabapentin 600 mg 03/21/24 18:00 03/21/24 17:36 Gabapentin 300 Mg Capsule PO 600 mg QPM KAREL Administration Heparin Sodium (Porcine) 5,000 unit 03/20/24 13:30 03/22/24 01:25 Heparin 5,000 Unit/Ml Inj 1 Ml SUBCUT 5,000 unit Q12H KAREL Administration Sodium Chloride 1,000 mls @ 75 mls/hr 03/21/24 07:15 03/21/24 21:54 Sodium Chloride 0.9% IV 75 mls/hr .[id number] KAREL Administration Amiodarone HCl/Dextrose 360 mg in 200 mls @ 0 mls/hr 03/21/24 11:55 03/22/24 06:32 Nexterone IV 0.5 mg/min .Q0M KAREL 16.67 mls/hr Titration Protocol Per Protocol Insulin Human Lispro 0 unit 03/20/24 18:00 03/21/24 21:51 Insulin Lispro 100 Unit/1 Ml SUBCUT 6 unit WM&BEDTIME KAREL Administration Protocol Lisinopril 20 mg 03/21/24 06:00 03/22/24 05:22 Lisinopril 20 Mg Tablet PO 20 mg QAM KAREL Administration Morphine Sulfate 2 mg 03/20/24 15:46 03/21/24 08:29 Morphine 4 Mg/Ml Sdv 1 Ml IVP 2 mg Q4H PRN Administration SEVERE PAIN Tamsulosin HCl 0.4 mg 03/20/24 18:00 03/21/24 17:36 Tamsulosin 0.4 Mg Capsule PO 0.4 mg QPM KAREL Administration PFSH Acute 2 PFSH: Medical History Carotid stenosis 100% occlusion of the right internal carotid artery and right vertebral. 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 Family History Father Hypertension Parkinson disease Brother Diabetes Social History Smoking and tobacco/nicotine status: former use of tobacco/nicotine Quit status (tobacco/nicotine): has quit using Former quit date comment: AT AGE 21 Alcohol intake: never Substance/Drug Use: never Vitals/I&O/Wt Last Vital Signs Temp 98.0 F 03/22/24 03:55 Pulse 85 03/22/24 05:45 Resp 16 03/22/24 05:45 BP 173/106 03/22/24 03:55 Pulse Ox 95 03/22/24 05:45 O2 Del Method Room Air 03/22/24 05:45 03/21/24 03/22/24 03/22/24 22:59 06:59 14:59 Intake Total 1391.25 / 1971.25 6.016 / 1977.266 Output Total 800 / 800 550 / 1350 Balance 591.25 / 1171.25 -543.984 / 627.266 Weight last 48 hrs Weight 220 lb Weight 217 lb Weight 216 lb 3.2 oz Weight 210 lb Physical Exam 2 Narrative: Patient able to lift his right leg although it is weaker. Discussed 4-5 plantar and dorsiflexion. Patient has a history of a stroke as well Urinary Catheter Management: Briseno: Cath Placed During This Visit: yes Reason for Continuing Indwelling Catheter: Acute Urinary Retention or Obstruction Urinary Catheter Date of Insertion: 03/20/24 Urinary Catheter Time of Insertion: 14:21 Data 03/22/24 05:06 03/22/24 05:06 Micro: Microbiology 03/20/24 11:56 Blood Culture - Preliminary Blood NEGATIVE TO DATE 03/20/24 11:52 Blood Culture - Preliminary Blood NEGATIVE TO DATE A&P Assessment and plan (1) Spine fracture: Patient has an L3 compression fracture as well as a right sacral ala fracture. Questionable new neurologic deficit in the right side. Would like to get a CT myelogram of the lumbar spine to evaluate compression of the nerves. He is unable to get an MRI because he has a piece of gold in his eye. Will likely not perform any surgery with leg give a chance to heal up on his own. At this point if he can get the CT myelogram he can be discharged from spine standpoint. Qualifiers: Encounter type: initial encounter Fracture of vertebra location: lumbar Lumbar vertebra fracture level: L3 Fracture type: closed Fracture morphology: wedge compression Qualified Code(s): S32.030A - Wedge compression fracture of third lumbar vertebra, initial encounter for closed fracture Coding Level of Care Code Acute Code for Chg Fwd Diagnoses Closed wedge compression fracture of L3 vertebra, initial encounter S32.030A Encounter type: initial encounter Fracture of vertebra location: lumbar Lumbar vertebra fracture level: L3 Fracture type: closed Fracture morphology: wedge compression
[2024-03-22] MEDS: insulin lispro 100 unit/1 mL SUBCUT ×4 (08:29→22:11)
[2024-03-22] MEDS: dexamethasone 4 mg Tablet PO (08:29)
--- NOTE | 2024-03-22 09:19 | PC.CHAP ---
Pastoral Care Encounter/Spiritual Assessment Type of Contact [] Declined cloth dyer visit [] Patient/Family/Request visit [] Outpatient visit [] Follow-up visit [] Physician referral [] Code/Alert [x] Routine visit [] Staff referral [] Actively dying [] Patient sleeping [] Family support [] [] Out of room [] Palliative care [] [] Receiving care in room [] Pre-surgical visit [] Trauma [] Long length of stay [] ICU visit [] Other: Relational/Emotional Strength [] Patient feels connected with others/family/visitors/staff [] Distress [] Loneliness/isolation [] Abandonment Spirituality of Patient [x] Person of Doris [] Attends Islam of their Doris [x] Believes in Prayer [] Reads Bible or Mu-Ism materials [] There are Spiritual issues to be addressed Chief Pilot Interventions [x] Prayer [x] Active listening [] Non-anxious presence [] Spiritual/emotional support [] Crisis/trauma care [] Spiritual counseling [] Bereavement support [] Provided bereavement packet [x] Provided Bible/devotional materials [] Provided toy/stuffed animal, coloring book to patient or family member [] Provided Communion [] Anointing/[place] [] Salvation [x] Completed spiritual assessment [] Other: Impact on Illness or Injury [] Angry [] Fearful [] Anxious [] Often cries [] Exhaustion [] Unable to work [] Unable to attend pentecostalism [] Unable to walk/stand [] Unable to read [] Unable to drive [] Unable to eat/drink [] Unable to sleep [] Unable to be with family [] Patient intubated [] Other: Summary Time spent with patient 15 min
--- NOTE | 2024-03-22 09:32 | PC.NURSE ---
Patient was transferred to CSU from Med Surg, upon transfer med surg nurse brought patients wallet and money in a patient valuables envelope. There is noted to be $115 inside. His money and medicine are in the pyxis now on CSU.
--- NOTE | 2024-03-22 10:40 | P.PN_ITS ---
Subjective 2 Subjective: Patient is [facility] placement Agreeable to go to [facility] Appreciate PT recommendations Dr. Sanchez recommendations appreciated Patient got TLSO brace Not able to walk without assistance Complaining of pain on ambulation Vitals/I&O/Wt Last Vital Signs Temp 98.3 F 03/22/24 08:00 Pulse 86 03/22/24 08:00 Resp 19 H 03/22/24 08:00 BP 156/93 03/22/24 08:00 Pulse Ox 93 03/22/24 08:00 O2 Del Method Room Air 03/22/24 08:00 03/21/24 03/22/24 03/22/24 22:59 06:59 14:59 Intake Total 1391.25 / 1971.25 6.016 / 1977.266 318 / 318 Output Total 800 / 800 550 / 1350 Balance 591.25 / 1171.25 -543.984 / 627.266 318 / 318 Weight last 48 hrs Weight 99.79 kg Weight 98.43 kg Weight 98.067 kg Physical Exam 2 Narrative: Awake and alert Nonfocal neuroexam Chronic right-sided weakness Hemodynamically stable Currently on room air Abdomen soft No active chest pain or shortness of breath S1, S2 sinus rhythm with PVCs Urinary Catheter Management: Briseno: Cath Placed During This Visit: yes Reason for Continuing Indwelling Catheter: Acute Urinary Retention or Obstruction Urinary Catheter Date of Insertion: 03/20/24 Urinary Catheter Time of Insertion: 14:21 Data 03/22/24 05:06 03/22/24 05:06 Micro: Microbiology 03/20/24 11:56 Blood Culture - Preliminary Blood NEGATIVE TO DATE 03/20/24 11:52 Blood Culture - Preliminary Blood NEGATIVE TO DATE A&P Assessment and plan (1) Hypertension: Qualifiers: Hypertension type: essential hypertension Qualified Code(s): I10 - Essential (primary) hypertension (2) Aortic stenosis, moderate: (3) Frequent PVCs: (4) Carotid stenosis: (5) Type 2 diabetes mellitus with hyperglycemia: Qualifiers: Diabetes mellitus terminal make up operator insulin use: with fpc use Qualified Code(s): E11.65 - Type 2 diabetes mellitus with hyperglycemia; Z79.4 - watermaster (current) use of insulin (6) Dehydration: (7) Acute urinary retention: (8) Spine fracture: Qualifiers: Encounter type: initial encounter Fracture of vertebra location: lumbar Lumbar vertebra fracture level: L3 Fracture type: closed Fracture morphology: wedge compression Qualified Code(s): S32.030A - Wedge compression fracture of third lumbar vertebra, initial encounter for closed fracture (9) Lumbar stenosis with neurogenic claudication: Plan Patient is agreeable to go to [facility] Case management updated Appreciate Dr. Laura cruz Patient has received TLSO brace, Continue PT on daily basis what we will take care of him at home, they have reconsidered the decision to go home and now agreeable for [facility] placement, Urinaryretension, BPH: PSA not significantly high, voiding trial today DNR/DNI Consistent carb diet continue sliding scale with insulin Hypertension: Continue lisinopril Sinus rhythm with multiple PVCs, will put patient on metoprolol Dehydration: Proved discontinue IV fluids Attestations 2 Medical Necessity Statement*: Discharge [facility], awaiting placement Diagnoses Essential hypertension I10 Hypertension type: essential hypertension Aortic stenosis, moderate I35.0 Frequent PVCs I49.3 Carotid stenosis I65.29 Type 2 diabetes mellitus with hyperglycemia, with long-term current use of insulin E11.65; Z79.4 Diabetes mellitus terminal make up operator insulin use: with terminal make up operator use Dehydration E86.0 Acute urinary retention R33.8 Closed wedge compression fracture of L3 vertebra, initial encounter S32.030A Encounter type: initial encounter Fracture of vertebra location: lumbar Lumbar vertebra fracture level: L3 Fracture type: closed Fracture morphology: wedge compression Lumbar stenosis with neurogenic claudication M48.062
--- NOTE | 2024-03-22 11:12 | PM.MISC ---
Miscellaneous Note Note: To whom it may concern, Mrs. Rodas is accompanying her in the hospital, her is requiring a lot of care at home and Mrs. Rodas is the only care provider at home. Her needs a lot of assistance for minimal daily activities such as eating, getting out of bed, transportation inside the house. She will need to stay with him 24/. Please excuse her from the official duty if possible. Should you have any questions please do not hesitate to reach out to [facility], phone #[phone] Thank you so much
[2024-03-22] MEDS: metoprolol tartrate 25 mg Tablet PO ×2 (11:44→20:16)
[2024-03-22 12:48] LABS: Glucose Point of Care 210 mg/dL (70-110)
[2024-03-22 17:36] LABS: Glucose Point of Care 179 mg/dL (70-110)
[2024-03-22] MEDS: tamsulosin 0.4 mg Capsule 0.400000000000000022 MG PO (18:37)
[2024-03-22] MEDS: lactulose oral liq 20 gm/30 mL UDC PO (18:37)
[2024-03-22] MEDS: gabapentin 300 mg Capsule 600 MG PO (18:37)
[2024-03-22 21:33] LABS: Glucose Point of Care 143 mg/dL (70-110)
[2024-03-23] VITALS (10 sets, daily range): BP systolic 113–147; BP diastolic 70–103; PULSE 74–86; RESP 16–20; TEMP 36.7–36.8; O2SAT 86–93; BMI 28.3
[2024-03-23] MEDS: heparin 5,000 unit/mL INJ 1 mL 5000 UNIT SUBCUT ×2 (01:51→12:49)
[2024-03-23] MEDS: pantoprazole DR 40 mg Tablet PO (05:45)
[2024-03-23] MEDS: lisinopril 20 mg Tablet PO (05:45)
[2024-03-23 06:39] LABS: Glucose Point of Care 129 mg/dL (70-110)
[2024-03-23] MEDS: metoprolol tartrate 25 mg Tablet PO ×2 (08:22→21:17)
--- NOTE | 2024-03-23 09:06 | PC.CHAP ---
Pastoral Care Encounter/Spiritual Assessment Type of Contact [] Declined spray technician visit [] Patient/Family/Request visit [] Outpatient visit [] Follow-up visit [] Physician referral [] Code/Alert [x] Routine visit [] Staff referral [] Actively dying [] Patient sleeping [] Family support [] [] Out of room [] Palliative care [] [] Receiving care in room [] Pre-surgical visit [] Trauma [] Long length of stay [] ICU visit [] Other: Relational/Emotional Strength [x] Patient feels connected with others/family/visitors/staff [] Distress [] Loneliness/isolation [] Abandonment Spirituality of Patient [x] Person of Doris [x] Attends Voodoo of their Doris [x] Believes in Prayer [x] Reads Bible or Gnosticism materials [] There are Spiritual issues to be addressed Manager Power Interventions [x Prayer [x] Active listening [] Non-anxious presence [x] Spiritual/emotional support [] Crisis/trauma care [] Spiritual counseling [] Bereavement support [] Provided bereavement packet [] Provided Bible/devotional materials [] Provided toy/stuffed animal, coloring book to patient or family member [] Provided Communion [] Anointing/[place] [] Salvation [x] Completed spiritual assessment [] Other: Impact on Illness or Injury [] Angry [] Fearful [] Anxious [] Often cries [] Exhaustion [] Unable to work [] Unable to attend yarsani [] Unable to walk/stand [] Unable to read [] Unable to drive [] Unable to eat/drink [] Unable to sleep [] Unable to be with family [] Patient intubated [] Other: Summary Time spent with patient 10 min
--- NOTE | 2024-03-23 10:27 | PM.PN ---
Subjective Subjective: Patient is stating that he is focusing on eating better When he tries to get up He was constipated which got relieved patient stated that he had to sit on a bedside commode around 11 PM Vitals/I&O/Wt Last Vital Signs Temp 98.0 F 03/23/24 07:10 Pulse 80 03/23/24 08:24 Resp 16 03/23/24 08:24 BP 147/103 03/23/24 07:10 Pulse Ox 92 03/23/24 08:24 O2 Del Method Room Air 03/23/24 08:24 03/22/24 03/23/24 03/23/24 22:59 06:59 14:59 Intake Total 1435.992 / 1993.992 Output Total 1250 / 1250 550 / 1800 Balance 185.992 / 743.992 -550 / 193.992 Weight last 48 hrs Weight 99.972 kg Weight 99.79 kg Physical Exam Narrative: No new focal deficit Right-sided weakness is chronic Left-sided facial droop is also chronic Dehydration present Currently on room air Hemodynamic stable Pleasant cooperative Daughter is at the bedside Urinary Catheter Management: Briseno: Cath Placed During This Visit: yes Reason for Continuing Indwelling Catheter: Acute Urinary Retention or Obstruction Urinary Catheter Date of Insertion: 03/20/24 Urinary Catheter Time of Insertion: 14:21 Data 03/22/24 05:06 03/22/24 05:06 A&P Assessment and plan (1) Aortic stenosis, moderate: (2) Frequent PVCs: (3) PVD (peripheral vascular disease): (4) Carotid stenosis: (5) Dyspnea on exertion: (6) Type 2 diabetes mellitus with hyperglycemia: Qualifiers: Diabetes mellitus mcc insulin use: with terminal operator use Qualified Code(s): E11.65 - Type 2 diabetes mellitus with hyperglycemia; 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 diet Constipation: Relieved Continue IV opioids along bowel regimen Attestations Medical Necessity Statement*: Awaiting placement Diagnoses Aortic stenosis, moderate I35.0 Frequent PVCs I49.3 PVD (peripheral vascular disease) I73.9 Carotid stenosis I65.29 Dyspnea on exertion R06.00 Type 2 diabetes mellitus with hyperglycemia, with long-term current use of insulin E11.65; Z79.4 Diabetes mellitus terminal operator insulin use: with mcc use Diabetic ulcer of ankle E11.622; L97.309 Dehydration E86.0 Urinary retention R33.9 Acute urinary retention R33.8
[2024-03-23 12:03] LABS: Glucose Point of Care 143 mg/dL (70-110)
[2024-03-23] MEDS: amlodipine 5 mg Tablet PO (12:50)
[2024-03-23] MEDS: acetaminophen 325 mg Tablet 650 MG PO (12:50)
[2024-03-23] MEDS: insulin lispro 100 unit/1 mL SUBCUT (12:50)
[2024-03-23] MEDS: morphine 4 mg/mL SDV 1 mL 2 MG IVP (15:28)
[2024-03-23 17:17] LABS: Glucose Point of Care 143 mg/dL (70-110)
[2024-03-23] MEDS: gabapentin 300 mg Capsule 600 MG PO (18:28)
[2024-03-23] MEDS: tamsulosin 0.4 mg Capsule 0.400000000000000022 MG PO (18:29)
[2024-03-23 20:42] LABS: Glucose Point of Care 129 mg/dL (70-110)
[2024-03-24] VITALS (17 sets, daily range): BP systolic 99–153; BP diastolic 53–77; PULSE 77–96; RESP 13–27; TEMP 36.4–37.4; O2SAT 89–97
[2024-03-24] MEDS: heparin 5,000 unit/mL INJ 1 mL 5000 UNIT SUBCUT ×2 (00:45→15:26)
[2024-03-24] MEDS: ipratropium-albuterol 3 mL Neb INHALATION ×2 (03:48→10:32)
[2024-03-24] MEDS: lisinopril 20 mg Tablet PO (05:30)
[2024-03-24 06:19] LABS: Glucose Point of Care 291 mg/dL (70-110)
[2024-03-24] MEDS: amlodipine 5 mg Tablet PO (09:25)
[2024-03-24] MEDS: metoprolol tartrate 25 mg Tablet PO ×2 (09:26→20:52)
[2024-03-24] MEDS: insulin lispro 100 unit/1 mL SUBCUT ×2 (09:26→22:26)
[2024-03-24] MEDS: morphine 4 mg/mL SDV 1 mL 2 MG IVP ×2 (09:36→15:26)
--- NOTE | 2024-03-24 10:26 | PM.PN ---
Subjective Subjective: Excruciating pain patient not able to adjust himself to comfortable position Required assistant athletic trainer to get out of bed to use a bedside commode It takes 2 person assist to get him out of bed Vitals/I&O/Wt Last Vital Signs Temp 97.6 F 03/24/24 07:13 Pulse 89 03/24/24 08:00 Resp 21 H 03/24/24 09:36 BP 116/77 03/24/24 07:13 Pulse Ox 90 03/24/24 07:38 O2 Del Method Nasal Cannula 03/24/24 07:38 O2 Flow Rate 3.5 03/24/24 07:38 03/23/24 03/24/24 03/24/24 22:59 06:59 14:59 Intake Total 500 / 1460 Output Total 550 / 1850 800 / 2650 Balance -550 / -890 -300 / -1190 Weight last 48 hrs Weight 100.924 kg Weight 99.972 kg Physical Exam Narrative: Awake and alert Signs of dehydration improving No new focal deficit Currently on 3.5 L nasal cannula Ate his breakfast at the bedside S1, S2 variable Urinary Catheter Management: Briseno: Cath Placed During This Visit: yes Reason for Continuing Indwelling Catheter: Acute Urinary Retention or Obstruction Urinary Catheter Date of Insertion: 03/20/24 Urinary Catheter Time of Insertion: 14:21 Data 03/22/24 05:06 03/22/24 05:06 A&P Assessment and plan (1) Hypertension: Qualifiers: Hypertension type: essential hypertension Qualified Code(s): I10 - Essential (primary) hypertension (2) Aortic stenosis, moderate: (3) Frequent PVCs: (4) PVD (peripheral vascular disease): (5) Carotid stenosis: (6) Dyspnea on exertion: (7) Type 2 diabetes mellitus with hyperglycemia: Qualifiers: Diabetes mellitus [facility] insulin use: with buttermaker continuous churn use Qualified Code(s): E11.65 - Type 2 diabetes mellitus with hyperglycemia; Z79.4 - [facility] (current) use of insulin (8) Dehydration: (9) Urinary retention: (10) Spine fracture: Qualifiers: Encounter type: initial encounter Fracture of vertebra location: lumbar Lumbar vertebra fracture level: L3 Fracture type: closed Fracture morphology: wedge compression Qualified Code(s): S32.030A - Wedge compression fracture of third lumbar vertebra, initial encounter for closed fracture (11) Lumbar stenosis with neurogenic claudication: Plan Patient is requiring IV opioids for excruciating back pain, he is not able to ambulate himself requiring 2 person assist Trying to arrange long term placement oxygen requirement is not worsening currently requiring 3.5 L for now Constipation relieved as well Patient is unsafe to return home because of risk of falls which would exacerbate his spine fracture could end up causing cauda equina DNR/DNI Briseno catheter continue No need to repeat labs for tomorrow Dr. Sanchez recommended medical management only Dehydration improved discontinue IV fluids Attestations Medical Necessity Statement*: Continue medical management Diagnoses Essential hypertension I10 Hypertension type: essential hypertension Aortic stenosis, moderate I35.0 Frequent PVCs I49.3 PVD (peripheral vascular disease) I73.9 Carotid stenosis I65.29 Dyspnea on exertion R06.00 Type 2 diabetes mellitus with hyperglycemia, with long-term current use of insulin E11.65; Z79.4 Diabetes mellitus buttermaker continuous churn insulin use: with buttermaker continuous churn use Dehydration E86.0 Urinary retention R33.9 Closed wedge compression fracture of L3 vertebra, initial encounter S32.030A Encounter type: initial encounter Fracture of vertebra location: lumbar Lumbar vertebra fracture level: L3 Fracture type: closed Fracture morphology: wedge compression Lumbar stenosis with neurogenic claudication M48.062
[2024-03-24 11:45] LABS: Glucose Point of Care 206 mg/dL (70-110)
--- NOTE | 2024-03-24 14:20 | PC.NURSE ---
Pt BS a little elevated at lunch time and requires ssi; however, the pt does not wish to eat at this time but wants to continue sleeping instead. Will re-evaluate later or nonadminister the dose if pt continues to sleep.
[2024-03-24 17:16] LABS: Glucose Point of Care 139 mg/dL (70-110)
[2024-03-24] MEDS: tamsulosin 0.4 mg Capsule 0.400000000000000022 MG PO (18:10)
[2024-03-24] MEDS: gabapentin 300 mg Capsule 600 MG PO (18:10)
[2024-03-24 20:49] LABS: Glucose Point of Care 244 mg/dL (70-110)
[2024-03-25] VITALS (10 sets, daily range): BP systolic 113–139; BP diastolic 59–63; PULSE 78–97; RESP 17–23; TEMP 36.4–37.4; O2SAT 92–96
[2024-03-25] MEDS: heparin 5,000 unit/mL INJ 1 mL 5000 UNIT SUBCUT ×2 (01:13→13:10)
[2024-03-25] MEDS: morphine 4 mg/mL SDV 1 mL 2 MG IVP ×3 (03:23→13:10)
[2024-03-25] MEDS: lisinopril 20 mg Tablet 10 MG PO (05:22)
[2024-03-25 06:25] LABS: Glucose Point of Care 119 mg/dL (70-110)
--- NOTE | 2024-03-25 07:28 | PM.DCS ---
Discharge Providers Date of Admission: 03/22/24 14:04 Date of Discharge: March 25, 2024 Attending Provider at Admission: Alexus Kaur MD Attending Provider at Discharge: Keisha Baker MD Primary Care Provider: Hamzah Chavez DO Diagnoses at Discharge Discharge Diagnosis (1) Hypertension: Status: Chronic Qualifiers: Hypertension type: essential hypertension Qualified Code(s): I10 - Essential (primary) hypertension (2) Aortic stenosis, moderate: Status: Acute (3) Frequent PVCs: Status: Acute (4) PVD (peripheral vascular disease): Status: Acute (5) Carotid stenosis: Status: Acute Permanent problem details: 100% occlusion of the right internal carotid artery and right vertebral. 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 (current) use of insulin (8) Dehydration: Status: Acute (9) Urinary retention: Status: Acute (10) Spine fracture: Status: Acute Qualifiers: Encounter type: initial encounter Fracture morphology: wedge compression Fracture of vertebra location: lumbar Fracture type: closed Lumbar vertebra fracture level: L3 Qualified Code(s): S32.030A - Wedge compression fracture of third lumbar vertebra, initial encounter for closed fracture (11) Lumbar stenosis with neurogenic claudication: Status: Acute Reason for Visit Reason for Visit: ALL OVER PAIN S/P FALL Hospital Course Hospital Course 73-year-old male with chronic history of right-sided hemiparesis, facial asymmetry, left-sided facial droop, uses a walker for ambulation at home, phrenic nerve injury with hemidiaphragm, who presented to the hospital after sustaining a fall at home, patient stating that his legs gave up on him and then he fell on his walker, he was fluids excruciating pain in his back, MRI was requested however because of metal he was deemed not a suitable candidate, CT scan of spine showed acute L3 compression fracture L5 transverse process fracture, degenerative joint disease, Dr. Sanchez was consulted who recommended medical management, TLSO brace was provided which improved his symptoms. Patient did not show signs of cauda equina however he does have urinary retention from BPH, patient has associating pain cannot even make himself comfortable in the bed, he is requiring 2 person assist to get out of bed, his constipation has been relieved with use of lactulose. IV fluids were maintained at 75 mill per hour sign of dehydration improved. Please note during hospitalization patient was showing a lot of PVCs we will concern for nonsustained V. tach, he remained asymptomatic, hemodynamically stable he was put on metoprolol. Echo showed diastolic dysfunction. His will not be able to take care of him long-term at home for now we are recommending longterm placement with opioids and bowel regimen He is DNR/DNI in case of further worsening he may consider palliative care Physical Exam Narrative: No sign of cauda equina Briseno catheter in place GCS 15 Chronic neurological deficits S1, S2 Signs of dehydration improving Urinary Catheter Management: Briseno: Cath Placed During This Visit: yes Reason for Continuing Indwelling Catheter: Acute Urinary Retention or Obstruction Urinary Catheter Date of Insertion: 03/20/24 Urinary Catheter Time of Insertion: 14:21 Discharge Data Studies Completed and Pending Completed Studies During Hospitalization Category Date Time Status CT cervical spin wo con* [id number] Routine Cat Scan 03/20/24 16:[address] head wo con* [id number] Stat Cat Scan 03/20/24 10:[address] lumbar spine wo con* [id number] Routine Cat Scan 03/20/24 16:01 Completed Pending at discharge Category Date Time Status Blood Culture Stat Lab 03/20/24 11:56 Results Sputum Culture and Gram Stain Stat Lab 03/20/24 13:31 Uncollected Radiology Impressions Head CT 03/20/24 10:07 IMPRESSION: No acute intracranial abnormality. Cervical Spine CT 03/20/24 16:01 IMPRESSION: No acute bony abnormality. If symptoms persist, consider further evaluation with MRI, if MRI is clinically safe to obtain. COMMENTS: Consistent with the [employer]'s Incidental Findings Committee white paper (J Am Oumar Radiol 2015): In patients aged 35 years and older with an incidental thyroid nodule equal to or greater than 1.[address], MRI or extrathyroidal US, further evaluation with dedicated thyroid US is recommended for patients with normal life expectancy and without comorbidities. For smaller nodules without suspicious features, no further evaluation or follow up is recommended. Lumbar Spine CT 03/20/24 16:01 IMPRESSION: 1. Acute mild L3 compression fracture. 2. Acute appearing sacral ala fractures. 3. Acute right L5 transverse process fracture. 4. Degenerative changes with severe spinal canal stenosis at multiple lumbar levels. Laboratory Results WBC 15.03 10^3/uL (3.29-11.43) H 03/22/24 05:06 RBC 4.63 10^6/uL (3.85-5.65) 03/22/24 05:06 Hgb 14.30 g/dL (11.27-16.99) 03/22/24 05:06 Hct 41.8 % (37-53) 03/22/24 05:06 MCV 90.3 fl (82-101) 03/22/24 05:06 MCH 30.9 pg (27-33) 03/22/24 05:06 MCHC 34.2 g/dL (30-55) 03/22/24 05:06 RDW 12.4 % (12.1-15.1) 03/22/24 05:06 Plt Count 281 10^3/cmm (157-399) 03/22/24 05:06 MPV 8.8 fL (7.4-10.4) 03/22/24 05:06 Neut % (Auto) 87.8 % 03/22/24 05:06 Lymph % (Auto) 5.5 % 03/22/24 05:06 [place] % (Auto) 5.9 % 03/22/24 05:06 Eos % (Auto) 0.0 % 03/22/24 05:06 Baso % (Auto) 0.1 % 03/22/24 05:06 Neut # (Auto) 13.21 10^3/uL (1.8-7.7) H 03/22/24 05:06 Lymph # (Auto) 0.8 10^3/uL (0.8-4.8) 03/22/24 05:06 [place] # (Auto) 0.9 10^3/uL (0.2-0.9) 03/22/24 05:06 Eos # (Auto) 0.0 10^3/uL (0.0-0.8) 03/22/24 05:06 Baso # (Auto) 0.0 10^3/uL (0.0-0.1) 03/22/24 05:06 Nucleated RBC % (auto) 0 % 03/22/24 05:06 Nucleated RBCs # 0.0 /100WBC 03/22/24 05:06 Sodium 132 mmol/L (136-145) L 03/22/24 05:06 Potassium 4.3 mmol/L (3.5-5.1) 03/22/24 05:06 Chloride 95 mmol/L (98-107) L 03/22/24 05:06 Carbon Dioxide 27 mmol/L (22-29) 03/22/24 05:06 Anion Gap 14.3 (5-19) 03/22/24 05:06 BUN 15 mg/dL (8-23) 03/22/24 05:06 Creatinine 0.6 mg/dL (0.7-1.2) L 03/22/24 05:06 GFR Calculation Not Reportable 03/22/24 05:06 Glucose 192 mg/dL (65-115) H 03/22/24 05:06 POC Glucose 119 mg/dL (70-110) H 03/25/24 06:13 Calculated Osmolality 280 mOsm/kg (285-295) L 03/22/24 05:06 Lactic Acid 1.2 mmol/L (0.5-2.2) 03/20/24 15:49 Calcium 8.9 mg/dL (8.5-10.5) 03/22/24 05:06 Magnesium 1.7 mg/dL (1.7-2.3) 03/21/24 07:11 Total Bilirubin 0.9 mg/dL (0.15-1.2) 03/21/24 07:11 AST 35 U/L (0-40) 03/21/24 07:11 ALT 22 U/L (0-41) 03/21/24 07:11 Alkaline Phosphatase 120 U/L (40-130) 03/21/24 07:11 Creatine Kinase 635 U/L (39-308) H* 03/20/24 08:03 Total Protein 7.2 g/dL (6.6-8.7) 03/21/24 07:11 Albumin 4.1 g/dL (3.5-5.2) 03/21/24 07:11 Globulin 3.1 g/dL (1.3-4.6) 03/21/24 07:11 Lipase 21 U/L (13-60) 03/20/24 08:03 Prostate Specific Ag 2.460 ng/mL (0-4) 03/20/24 08:03 Procalcitonin 0.07 ng/mL (0-0.5) 03/20/24 08:03 TSH 4.37 uIU/mL (0.27-4.20) H 03/20/24 08:03 Urine Color Yellow (Yellow) 03/20/24 13:38 Urine Appearance Clear (CLEAR) 03/20/24 13:38 Urine pH 6.5 (5-7) 03/20/24 13:38 Ur Specific Mccall 1.010 (1.005-1.030) 03/20/24 13:38 Urine Protein Neg (Negative) 03/20/24 13:38 Urine Glucose (UA) Norm (Normal) 03/20/24 13:38 Urine Ketones Negative (Negative) 03/20/24 13:38 Urine Blood Neg (Negative) 03/20/24 13:38 Urine Nitrate Negative (Negative) 03/20/24 13:38 Urine Bilirubin Neg (Negative) 03/20/24 13:38 Urine Urobilinogen Norm mg/dL (Negative) 03/20/24 13:38 Ur Leukocyte Esterase Negative (Negative) 03/20/24 13:38 Vitals Last Vital Signs Temp 97.6 F 03/25/24 07:13 Pulse 78 03/25/24 07:13 Resp 17 03/25/24 07:13 BP 113/61 03/25/24 07:13 Pulse Ox 95 03/25/24 07:13 O2 Del Method Nasal Cannula 03/25/24 07:13 O2 Flow Rate 3.5 03/24/24 10:34 Discharge Plan Discharge Patient Disposition: Xfer SNF Condition: Stable Prescriptions: New metoprolol tartrate 25 mg Tablet 25 mg PO BID@0900,2100 Qty: 60 0RF lactulose 10 gram/15 mL (15 mL) solution 10 g PO DAILY PRN (Reason: constipation) Qty: 600 0RF Continued aspirin 325 mg tablet 325 mg PO DAILY (DME) OneTouch Ultra Blue Test Strip Strip See Rx Instructions .ROUTE .MEDSUPPLY Qty: 200 3RF Rx Instructions: As directed to test blood sugar twice a day. (DME) pen needle, diabetic [Lite Touch Insulin Pen [place]] 31 gauge x 3/16 needle See Rx Instructions .Route Qty: 100 3RF Rx Instructions: As directed daily for insulin albuterol sulfate [Ventolin HFA] 90 mcg/actuation HFA aerosol inhaler 2 puff INHALATION Q6H PRN (Reason: shortness of breath or wheezing) Qty: 6.7 0RF Aleve 220 mg Tablet 440 mg PO BID PRN (Reason: Pain) ibuprofen 200 mg Tablet 400 mg PO Q6H PRN (Reason: Pain) Nitrostat 0.4 mg Tablet, Sublingual 0.4 mg SUBLINGUAL Q5M PRN (Reason: Chest Pain) Rx Instructions: do not exceed 3 doses per episode Gold Botello Healing Lotion See Rx Instructions .ROUTE .COMPLEX Rx Instructions: topically as needed Bresaltec Inhaler See Rx Instructions .ROUTE .COMPLEX Rx Instructions: as needed as directed Mens Vitacraves Gummies 1 tab PO DAILY Advair Diskus 250-50 mcg/dose blister with device 1 inh inhalation BID gabapentin 600 mg tablet 600 mg PO QPM lisinopril 20 mg tablet 20 mg PO QAM tamsulosin 0.4 mg capsule 0.4 mg PO QPM ketoconazole 2 % cream 1 applic TOPICAL BID PRN (Reason: unknown) Lumigan 0.01 % drops 1 drp ophthalmic (eye) DAILY Rx Instructions: both eyes Tresiba FlexTouch U-100 100 unit/mL (3 mL) insulin pen 60 unit SUBCUT QAM Discontinued hydrochlorothiazide 25 mg tablet 25 mg PO QAM Qty: 90 3RF glipizide 10 mg tablet 10 mg PO QAM fenofibrate nanocrystallized 48 mg tablet 48 mg PO QPM Discharge Orders: Discharge Order (Routine); Ordered 03/25/24 Ordered By: Keisha Baker Referrals: Hamzah Chavez DO [Primary Care Provider] - Discharge Attestations Time Spent in Discharge Care*: greater than 30 min Quality Metrics Clinical Quality Measures [ No reported AMI, CVA or VTE this stay] Coding Level of Care Code Acute Code for Chg Fwd Diagnoses Essential hypertension I10 Hypertension type: essential hypertension Aortic stenosis, moderate I35.0 Frequent PVCs I49.3 PVD (peripheral vascular disease) I73.9 Carotid stenosis I65.29 Dyspnea on exertion R06.00 Type 2 diabetes mellitus with hyperglycemia, with long-term current use of insulin E11.65; Z79.4 Diabetes mellitus skilled nursing insulin use: with skilled nursing use Dehydration E86.0 Urinary retention R33.9 Closed wedge compression fracture of L3 vertebra, initial encounter S32.030A Encounter type: initial encounter Fracture morphology: wedge compression Fracture of vertebra location: lumbar Fracture type: closed Lumbar vertebra fracture level: L3 Lumbar stenosis with neurogenic claudication M48.062
[2024-03-25] MEDS: metoprolol tartrate 25 mg Tablet PO (08:57)
[2024-03-25] MEDS: amlodipine 5 mg Tablet PO (08:58)
--- NOTE | 2024-03-25 11:57 | PC.NURSE ---
Attempted to call report to [facility] and they refused to take report stating that they have not received d/c orders from our facility as yet. Informed that they will take report once d/c orders have been received.
--- NOTE | 2024-03-25 12:09 | PC.NURSE ---
Notified from that the d/c orders were originally sent at 0910 and showed received. Have been notified that they have been re-sent and informed to try and call again
--- NOTE | 2024-03-25 12:39 | PC.NURSE ---
Called report to [facility] and gave to Corrina Hairston LPN
[2024-03-25 14:07] LABS: SARS Covid-2 Antigen negative (Negative)
--- NOTE | 2024-03-25 15:47 | PC.NURSE ---
Discharge Note [facility] via [[facility]] accompanied by [ambulance personnel]. Discharge instructions reviewed with patient and/or floor representative. Mobile pharmacy medications and/or prescriptions provided. Belongings/home medications returned.
== END 2024-03-25 15:45 | disposition skilled nursing facility (03) | DRG 552 ==
LOC: ER 10:26 → MEDSURG 14:01 → CSU 03-21 11:30
PROVIDERS: Admitting Provider Internal Medicine; Emergency Provider Family Medicine; PCP Family Medicine; Visit Provider Internal Medicine
DX: S32.030A Wedge compression fracture of third lumbar vertebra, initial encounter for closed fracture (principal); S32.10XA Unspecified fracture of sacrum, initial encounter for closed fracture; G81.91 Hemiplegia, unspecified affecting right dominant side; I50.30 Unspecified diastolic (congestive) heart failure; S32.058A Other fracture of fifth lumbar vertebra, initial encounter for closed fracture; W18.30XA Fall on same level, unspecified, initial encounter; M48.062 Spinal stenosis, lumbar region with neurogenic claudication; Z75.1 Person awaiting admission to adequate facility elsewhere; K59.00 Constipation, unspecified; E86.0 Dehydration; I49.3 Ventricular premature depolarization; Z66 Do not resuscitate; H44.601 Unspecified retained (old) intraocular foreign body, magnetic, right eye; S14.8 Injury of other specified nerves of neck; X58.XXXS Exposure to other specified factors, sequela; R29.810 Facial weakness; N40.1 Benign prostatic hyperplasia with lower urinary tract symptoms; R33.8 Other retention of urine; I65.21 Occlusion and stenosis of right carotid artery; I65.01 Occlusion and stenosis of right vertebral artery; I35.0 Nonrheumatic aortic (valve) stenosis; I11.0 Hypertensive heart disease with heart failure; E11.51 Type 2 diabetes mellitus with diabetic peripheral angiopathy without gangrene; E11.65 Type 2 diabetes mellitus with hyperglycemia; E78.5 Hyperlipidemia, unspecified; Z96.651 Presence of right artificial knee joint; Z79.82 Long term (current) use of aspirin; Z79.84 Long term (current) use of oral hypoglycemic drugs; Z79.4 Long term (current) use of insulin; Z11.52 Encounter for screening for COVID-19; Z87.891 Personal history of nicotine dependence; Z86.73 Personal history of transient ischemic attack (TIA), and cerebral infarction without residual deficits; Z85.820 Personal history of malignant melanoma of skin; Z85.71 Personal history of Hodgkin lymphoma
CPT/HCPCS: 36415; 36416; 51702; 70450; 72125; 72131; 80048; 80053; 81003; 82550; 82962; 83605; 83690; 83735; 84145; 84153; 84443; 85025; 87040; 87426; 93005; 94640; 94664; 96360; 96361; 96372; 96376; 97161; 97530; 99285; G0378; J0283; J1644; J1815; J2270; J7030; J8540; L0637

== ENCOUNTER 2024-03-29 05:56 | Inpatient (IN) | payer MEDICARE, OTHER, SELFPAY ==
[2024-03-29] VITALS (28 sets, daily range): BP systolic 61–150; BP diastolic 46–88; PULSE 83–122; RESP 14–34; TEMP 36.5–36.7; O2SAT 84–98; BMI 26.9
--- NOTE | 2024-03-29 06:03 | XRR_ITS ---
PROCEDURE INFORMATION: Exam: XR Chest Exam date and time: 03/29/2024 6:32 AM Age: 73 years old Clinical indication: Cough and dyspnea; Prior surgery; Surgery date: 6+ months; Surgery type: Left shoulder; Additional info: Dyspnea/cough TECHNIQUE: Imaging protocol: Radiologic exam of the chest. Views: 1 view. COMPARISON: CR XR chest 1V portable [id number] 12/05/2020 2:43 PM FINDINGS: Lungs: Increased atelectasis or infiltrate in the right lower lung zone compared to 12/05/2020. Mild chronic scarring at the left base appears similar to prior study. Mild left perihilar infiltrate may be present. Pleural spaces: No significant pleural fluid. No pneumothorax detected. Heart/Mediastinum: Heart size is stable compared to previous exam. No pulmonary vascular congestion. Diaphragm: Presumed chronic elevation of right hemidiaphragm as such finding was reported on CT in 2013 (images unavailable for review). Bones/joints: Bones appear osteopenic and are not optimally visualized on this portable exam. XR/XR chest 1V portable [id number] IMPRESSION: 1. Presumed chronic severe elevation of right hemidiaphragm. This is similar to 2020. 2. Increased atelectasis or infiltrate in the right base compared to 2020 exam. Subtle infiltrate may be present in left perihilar region, not apparent previously. 3. Subtle parenchymal density in the left base appears similar to prior study, presumably chronic scarring.
--- NOTE | 2024-03-29 06:04 | ECG_ITS ---
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 Measurements Intervals [place] Rate: 107 P: -20 ME: 92 QRS: -66 QRSD: 168 T: 34 QT: 381 QTc: 510 Interpretive Statements Sinus tachycardia with frequent supraventricular ectopics POSSIBLE LEFT ATRIAL ENLARGEMENT [-0.1mV P-WAVE IN V1/V2] RIGHT BUNDLE BRANCH BLOCK [120+ ms QRS DURATION, UPRIGHT V1, 40+ ms S IN I/aVL/V4/V5/V6] LEFT ANTERIOR FASCICULAR BLOCK [QRS AXIS <= -45, QR IN I, RS IN II] POSSIBLE SEPTAL MYOCARDIAL INFARCTION , OF INDETERMINATE AGE [30 ms Q WAVE IN V1/V2] Compared to ECG 03/21/2024 07:37:15 Myocardial infarct finding now present Sinus tachycardia no longer present Electronically Signed On 03-29-2024 17:44:43 CDT by Martin Ramos M.D. [email or web address]
--- NOTE | 2024-03-29 06:08 | ED_ITS ---
HPI - SOB/Dyspnea 2 General: Chief Complaint: Shortness of Breath/Dyspnea Stated Complaint: RESP. DISTRESS Time Seen by Provider: 03/29/24 06:02 Source: patient Mode of arrival: EMS History of Present Illness: HPI Narrative: 73-year-old male presents emergency room via EMS from nursing with sats in the low 80s. He states he has been had been doing well up until last night overnight began to have difficulty breathing. Patient has known aortic stenosis he also has severe COPD is chronically on oxygen he was unsure how much he is usually on. On arrival here he did not put on the mask we tried to titrate him back down to nasal cannula but he required simple oxygen mask to maintain sats sats in the upper 80s. Patient recently hospitalized after multiple falls had lumbar compression fractures as well as sacral fractures that were managed with pain control, nonsurgical treatment recommended. Patient denies chest pain or abdominal pain. When he was last hospitalized he had urinary retention from BPH he still has a Briseno in place. [facility] as he was unable to care for himself. There is noted in discharge summary that he had some diastolic dysfunction on echo during last hospitalization of there is no echo report yet on the chart. MD elicited complaint: shortness of breath Pertinent past history: COPD Onset (ago): hour(s) Timing: constant Severity: moderate Exacerbating factors: lying flat, exertion and coughing Relieving factors: oxygen and bronchodilators Associated symptoms: Reports chest congestion and cough; Deny abdominal pain, chest pain, diaphoresis, dizziness, extremity pain, fever(s), hemoptysis, lightheadedness, myalgias, nausea, orthopnea, palpitations, paresthesias, polydipsia, polyuria, rash, sense of impending doom, syncope or vomiting Treatment prior to arrival: oxygen and bronchodilator Related Data: Home oxygen amount: 2 liters Review of Systems 2 Const: Reports: fatigue; Denies: fever(s), chills or diaphoresis Card: Reports: edema; Denies: chest pain, palpitations, lightheadedness, syncope or orthopnea Resp: Reports: dyspnea, non-productive cough, wheezing and chest congestion; Denies: hemoptysis GI: Denies: abdominal pain, nausea or vomiting : Reports: difficulty urinating (Briseno in place due to urinary retention from BPH) Musc: Denies: extremity pain Skin/Breast: Denies: rash Neuro: Denies: dizziness Endo: Denies: polyuria or polydipsia PFSH ED 2 PFSH: Medical History (Updated 03/29/24 @ 13:35 by Soto Case DO) Lumbar stenosis with neurogenic claudication Spine fracture Back pain Acute urinary retention Dehydration Urinary retention Dyspnea on exertion Diabetic ulcer of ankle Frequent PVCs Carotid stenosis 100% occlusion of the right internal carotid artery and right vertebral. 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 Family History Father Hypertension Parkinson disease Brother Diabetes Social History Smoking and tobacco/nicotine status: former use of tobacco/nicotine Quit status (tobacco/nicotine): has quit using Former quit date comment: AT AGE 21 Alcohol intake: never Substance/Drug Use: never Physical Exam 2 Const: GENERAL APPEARANCE: cooperative and comfortable O RIENTATION/CONSCIOUSNESS: Yes awake, Yes oriented to person, Yes oriented to place and Yes oriented to time HENMT: COMMON NORMALS: normocephalic, atraumatic and hearing grossly normal bilaterally HEAD & SCALP: normocephalic and atraumatic Resp: COMMON NORMALS: No retractions and No use of accessory muscles A USCULTATION: crackles and wheezes Cardio: COMMON NORMALS: regular rhythm and No murmurs present (Cardio) R ATE: tachycardic RHYTHM: regular rhythm GI: COMMON NORMALS: Soft to palpation and No hepatosplenomegaly present A USCULTATION: Yes normoactive bowel sounds PALPATION: Yes Soft to palpation, No Tenderness to palpation present (GI), No Guarding due to palpation present (GI) and Yes No hepatosplenomegaly present Extremity: COMMON NORMALS: normal to inspection, capillary refill normal, no clubbing, cyanosis or edema, no calf tenderness and no pedal edema Neuro: SENSORIUM/ORIENTATION: Yes oriented to person, Yes oriented to place and Yes oriented to time Skin: COMMON NORMALS: no rashes or lesions noted GENERAL SKIN EXAM: no rashes or lesions noted Course 2 Vital Signs: Vital signs: Vital Signs Temperature 98.1 F 03/29/24 06:07 Pulse Rate 92 03/29/24 10:48 Respiratory Rate 24 H 03/29/24 12:46 Blood Pressure 111/79 03/29/24 09:31 Pulse Oximetry 93 03/29/24 10:48 Oxygen Delivery Me thod Nasal Cannula 03/29/24 10:48 Oxygen Flow Rate 4.5 03/29/24 10:48 Fraction of Inspir ed Oxygen 65 03/29/24 09:31 MDM - SOB/Dyspnea Medical Decision Making Labs and imaging reviewed no evidence of PE however patient does have pretty significant pneumonia question of a right hilar neoplasm. Will admit started on IV antibiotics he is doing much better with the BiPAP. Patient is rhabdomyolysis hyponatremia. T. bili is mildly elevated as well. Other labs and imaging reviewed. There is no evidence of acute ST changes on EKG. Medical Records I reviewed the patient's medical records. Lab Data I reviewed the patient's lab results. 03/29/24 06:20 03/29/24 06:20 Labs/Radiology: Radiology Impressions Chest X-Ray 03/29/24 06:03 IMPRESSION: 1. Presumed chronic severe elevation of right hemidiaphragm. This is similar to 2020. 2. Increased atelectasis or infiltrate in the right base compared to 2020 exam. Subtle infiltrate may be present in left perihilar region, not apparent previously. 3. Subtle parenchymal density in the left base appears similar to prior study, presumably chronic scarring. Chest CTA 03/29/24 08:04 IMPRESSION: 1. No evidence of pulmonary embolus. 2. Elevated RIGHT hemidiaphragm with patchy infiltrates in the RIGHT upper lobe and RIGHT lower lobe with partial consolidation. Opacification of the RIGHT upper lobe and middle lobe bronchus. Recommend further evaluation with bronchoscopy. Neoplasm should be excluded. 3. Small bilateral pleural effusions. 4. Patchy infiltrates with atelectasis LEFT lower lobe. 5. Semisolid groundglass opacity LEFT upper lobe at the lung apex measuring 1.7 x 1.1 cm. Recommend follow-up to resolution 6. Mild RIGHT to LEFT narrowing of the trachea similar in appearance to the prior PET/CT 2018 Gallbladder Ultrasound 03/29/24 08:04 IMPRESSION: Nondiagnostic evaluation of the RIGHT upper quadrant. This is due to body habitus but predominantly by the colon extending anterior to the liver. Laboratory Results WBC 41.42 10^3/uL (3.29-11.43) H* 03/29/24 06:20 RBC 4.61 10^6/uL (3.85-5.65) 03/29/24 06:20 Hgb 14.20 g/dL (11.27-16.99) 03/29/24 06:20 Hct 42.3 % (37-53) 03/29/24 06:20 MCV 91.8 fl (82-101) 03/29/24 06:20 MCH 30.8 pg (27-33) 03/29/24 06:20 MCHC 33.6 g/dL (30-55) 03/29/24 06:20 RDW 12.3 % (12.1-15.1) 03/29/24 06:20 Plt Count 441 10^3/cmm (157-399) H 03/29/24 06:20 MPV 8.6 fL (7.4-10.4) 03/29/24 06:20 Neut % (Auto) 92.9 % 03/29/24 06:20 Lymph % (Auto) 1.0 % 03/29/24 06:20 [place] % (Auto) 3.3 % 03/29/24 06:20 Eos % (Auto) 0.1 % 03/29/24 06:20 Baso % (Auto) 0.1 % 03/29/24 06:20 Neut # (Auto) 38.46 10^3/uL (1.8-7.7) H 03/29/24 06:20 Lymph # (Auto) 0.4 10^3/uL (0.8-4.8) L 03/29/24 06:20 [place] # (Auto) 1.4 10^3/uL (0.2-0.9) H 03/29/24 06:20 Eos # (Auto) 0.1 10^3/uL (0.0-0.8) 03/29/24 06:20 Baso # (Auto) 0.0 10^3/uL (0.0-0.1) 03/29/24 06:20 Nucleated RBC % (auto) 0 % 03/29/24 06:20 Nucleated RBCs # 0.0 /100WBC 03/29/24 06:20 Specimen Type Arterial 03/29/24 05:59 Sample Site Brachial, right 03/29/24 05:59 ABG pH 7.43 (7.35-7.45) 03/29/24 05:59 ABG pCO2 44.6 mmHg (35-45) 03/29/24 05:59 ABG pO2 49.5 mmHg (80.0-100.0) L 03/29/24 05:59 ABG HCO3 29.4 mmol/L (22-26) H 03/29/24 05:59 ABG O2 Saturation 85.0 03/29/24 05:59 ABG Base Excess 4.4 mmol/L (-2.0-2.0) H 03/29/24 05:59 Kenneth Test N/a 03/29/24 05:59 A-a O2 Gradient 5.8 mmHg (5-10) 03/29/24 05:59 Hematocrit 40.9 % (42-52) L 03/29/24 05:59 Hgb O2 Saturation 83.9 % (95-100) L 03/29/24 05:59 Carboxyhemoglobin 1.3 %THgb (0.4-20.1) 03/29/24 05:59 Methemoglobin 0.0 % (0.4-1.5) L 03/29/24 05:59 Total Hemoglobin 13.4 g/dL (14-18) L 03/29/24 05:59 Sodium 125.0 mmol/L (131-143) L 03/29/24 05:59 Potassium 4.1 mmol/L (3.5-5.0) 03/29/24 05:59 Glucose 69.0 mg/dL (70-115) L 03/29/24 05:59 Ionized Calcium 1.2 mmol/L (1.1-1.4) 03/29/24 05:59 O2 Delivery Device Nc 03/29/24 05:59 O2 Liters/Min 6.0 % 03/29/24 05:59 Acetylene Operator ID [email or web address] 03/29/24 05:59 Sodium 125 mmol/L (136-145) L 03/29/24 06:20 Potassium 4.4 mmol/L (3.5-5.1) 03/29/24 06:20 Chloride 86 mmol/L (98-107) L 03/29/24 06:20 Carbon Dioxide 26 mmol/L (22-29) 03/29/24 06:20 Anion Gap 17.4 (5-19) 03/29/24 06:20 BUN 22 mg/dL (8-23) 03/29/24 06:20 Creatinine 0.5 mg/dL (0.7-1.2) L 03/29/24 06:20 GFR Calculation Not Reportable 03/29/24 06:20 Glucose 70 mg/dL (65-115) 03/29/24 06:20 Calculated Osmolality 262 mOsm/kg (285-295) L 03/29/24 06:20 Lactic Acid 1.7 mmol/L (0.5-2.2) 03/29/24 06:20 Calcium 9.2 mg/dL (8.5-10.5) 03/29/24 06:20 Magnesium 1.9 mg/dL (1.7-2.3) 03/29/24 06:20 Total Bilirubin 1.6 mg/dL (0.15-1.2) H 03/29/24 06:20 AST 32 U/L (0-40) 03/29/24 06:20 ALT 35 U/L (0-41) 03/29/24 06:20 Alkaline Phosphatase 179 U/L (40-130) H 03/29/24 06:20 Troponin T Baseline 35 ng/L (0-15) H 03/29/24 06:20 Troponin T 120 Minute 30.96 ng/L (0-15) H 03/29/24 09:24 Delta Troponin T -4.04 ABS# (0-10) L 03/29/24 09:24 NT-Pro-B Natriuret Pep 4847 pg/mL (0-125) H 03/29/24 06:20 Total Protein 6.7 g/dL (6.6-8.7) 03/29/24 06:20 Albumin 3.2 g/dL (3.5-5.2) L 03/29/24 06:20 Globulin 3.5 g/dL (1.3-4.6) 03/29/24 06:20 Lipase 11 U/L (13-60) L 03/29/24 06:20 Procalcitonin 0.71 ng/mL (0-0.5) H 03/29/24 06:20 Urine Color Yellow (Yellow) 03/29/24 07:29 Urine Appearance Clear (CLEAR) 03/29/24 07:29 Urine pH 7 (5-7) 03/29/24 07:29 Ur Specific [place] 1.010 (1.005-1.030) 03/29/24 07:29 Urine Protein Neg (Negative) 03/29/24 07:29 Urine Glucose (UA) Norm (Normal) 03/29/24 07: Urine Ketones Negative (Negative) 03/29/24 07: Urine Blood 2+ (Negative) H 03/29/24 07: Urine Nitrate Negative (Negative) 03/29/24 07: Urine Bilirubin Neg (Negative) 03/29/24 07: Urine Urobilinogen 4 mg/dL (Negative) H 03/29/24 07:29 Ur Leukocyte Esterase Negative (Negative) 03/29/24 07:29 Urine RBC 5-10 /hpf (0-2) H 03/29/24 07:29 Urine WBC 5-10 /hpf (0-5) H 03/29/24 07:29 Ur Squamous Epith Cells None /hpf (0-5) 03/29/24 07:29 Amorphous Sediment Not Reportable 03/29/24 07:29 Urine Bacteria 1+ /hpf (NONE) H 03/29/24 07:29 All radiology interpretation(s) finalized by discharge Discharge Plan Discharge Patient Disposition: Admitted As Inpatient Admit Provider: Keisha Baker Clinical Impression: Pneumonia, Rhabdomyolysis, Hyponatremia, Total bilirubin, elevated, H/O urinary retention Condition: Stable Coding Level of Care Code ED Lien Searcher for Keesha Bhatia
[2024-03-29 06:10] LABS: ABG PCO2 44.6 mmHg (35-45); ABG PH Result 7.43 (7.35-7.45); Alveolar-Arterial Oxygen Gradi 5.8 mmHg (5-10); Arterial Blood Gas Hematocrit 40.9 % (42-52); Base Excess ABG 4.4 mmol/L (-2.0-2.0); Blood Gas Sample Site Brachial, right; Blood Gas Sample Type Arterial; Carboxyhemoglobin 1.3 %THgb (0.4-20.1); HCO3 ABG 29.4 mmol/L (22-26); HGB O2 Sat 83.9 % (95-100); Ionized Calcium Level - ABG 1.2 mmol/L (1.1-1.4); Oxygen Device NC; PO2 ABG 49.5 mmHg (80.0-100.0); Potassium Level - ABG 4.1 mmol/L (3.5-5.0); Total Hemoglobin 13.4 g/dL (14-18)
[2024-03-29] MEDS: ipratropium-albuterol 3 mL Neb INHALATION ×2 (06:29→13:30)
[2024-03-29] MEDS: dexamethasone 10 mg/mL INJ IM (06:34)
[2024-03-29 06:37] LABS: Basophils % 0.1 %; Eosinophils # 0.1 10^3/uL (0.0-0.8); Eosinophils % 0.1 %; Hematocrit 42.3 % (37-53); Lymphocytes # 0.4 10^3/uL (0.8-4.8); Mean Corpuscular HGB Conc 33.6 g/dL (30-55); Mean Corpuscular Hemoglobin 30.8 pg (27-33); Mean Corpuscular Volume 91.8 fl (82-101); Mean Platelet Volume 8.6 fL (7.4-10.4); Monocytes # 1.4 10^3/uL (0.2-0.9); Monocytes % 3.3 %; Neutrophils # 38.46 10^3/uL (1.8-7.7); Neutrophils % 92.9 %; Nucleated Red Blood Cells % 0 %; Platelet Count 441 10^3/cmm (157-399); Red Blood Count 4.61 10^6/uL (3.85-5.65); Red Cell Distribution Width 12.3 % (12.1-15.1)
[2024-03-29 06:50] LABS: Troponin(5th) Baseline 35 ng/L (0-15)
[2024-03-29] MEDS: sodium chloride 0.9% 500 ML 999 ML IV (06:51)
[2024-03-29 07:00] LABS: NT Pro B Type Natriuretic Pept 4847 pg/mL (0-125); Procalcitonin 0.71 ng/mL (0-0.5)
[2024-03-29] MEDS: piperacillin-tazobactam 3.375 GM in sodium chloride 0.9% (plus) 50 ML IV ×3 (07:08→19:56)
[2024-03-29] MEDS: sodium chloride 0.9% 2,857.62 ML 2857.61999999999989 ML IV (07:08)
[2024-03-29 07:09] LABS: Slide Review Slide Review Perform
[2024-03-29 07:11] LABS: Alanine Aminotransferase 35 U/L (0-41); Albumin Level 3.2 g/dL (3.5-5.2); Alkaline Phosphatase 179 U/L (40-130); Anion Gap 17.4 (5-19); Aspartate Amino Transferase 32 U/L (0-40); Blood Urea Nitrogen 22 mg/dL (8-23); Calcium 9.2 mg/dL (8.5-10.5); Carbon Dioxide 26 mmol/L (22-29); Chloride 86 mmol/L (98-107); Creatinine Clr Calc Pharmacy 103.2061; Globulin 3.5 g/dL (1.3-4.6); Glucose 70 mg/dL (65-115); Magnesium 1.9 mg/dL (1.7-2.3); Osmolality Calculated 262 mOsm/kg (285-295); Potassium 4.4 mmol/L (3.5-5.1); Sodium 125 mmol/L (136-145); Total Bilirubin 1.6 mg/dL (0.15-1.2); Total Protein 6.7 g/dL (6.6-8.7)
[2024-03-29 07:14] LABS: White Blood Count 41.42 10^3/uL (3.29-11.43)
[2024-03-29 07:20] LABS: Lactic Sepsis W/Reflex 1.7 mmol/L (0.5-2.2)
[2024-03-29] MEDS: vancomycin 1,000 MG in sodium chloride 0.9% 250 ML 250 MG IV (07:43)
[2024-03-29 08:01] LABS: Add Urine Culture? No; Add Urine Microscopic? YES; Bacteria Urine 1+ /hpf; Bilirubin Urine Neg (Negative); Blood Urine 2+ (Negative); Glucose Urine UA Norm (Normal); Ketones Urine Negative (Negative); Leukocyte Esterase Urine Negative (Negative); Nitrate Urine Negative (Negative); Protein Urine Neg (Negative); Urine Appearance Clear (CLEAR); Urine Color Yellow (Yellow); Urobilinogen Urine 4 mg/dL (Negative); pH Urine 7 (5-7)
--- NOTE | 2024-03-29 08:04 | CT_ITS ---
WS: [id number] CTA OF THE CHEST WITH PULMONARY EMBOLISM PROTOCOL TECHNIQUE: High-resolution contrast enhanced CTA of the chest with coronal and sagittal reformatted i mages with pulmonary embolism protocol. MIP images are also reviewed. CLINICAL INFORMATION: dyspnea/abnormal cxr COMPARISON: None. DLP: 556.[address] scans at [facility] use at least one of these dose optimization techniques: automated e xposure control; mA and/or kV adjustment per patient size (includes targeted exams where dose is matc hed to clinical indication); or iterative reconstruction. FINDINGS: Proximal pulmonary arteries are normal. Normal segmental and subsegmental pulmonary arteries. No evid ence of pulmonary embolus. Normal caliber thoracic aorta. Aortic calcification. Chronic elevation RIG HT hemidiaphragm. Diffuse patchy infiltrates with some consolidation in the RIGHT upper lobe. Secretions with opacifica tion RIGHT upper lobe and RIGHT middle lobe bronchus. This could be further evaluated with bronchosco py. Additional patchy infiltrates and atelectasis in the RIGHT lower lobe. Small RIGHT pleural effusi on. Bronchovascular thickening along the RIGHT hilum. Patchy infiltrates with partial consolidation LEFT lower lobe. Small LEFT pleural effusion. Semisolid opacity LEFT upper lobe at the lung apex measuring 1.7 x 1.1 cm. Recommend follow-up to resolution. Adrenal glands are normal. Small esophageal hiatal hernia. Moderate thoracic kyphosis. Chronic anteri or wedging in the midthoracic spine. Nodular thyroid. LEFT TSA degrades some images. A few prominent mediastinal and parabronchial lymph nodes likely reactive. CT/CT angio chest PE protcl [id number] IMPRESSION: 1. No evidence of pulmonary embolus. 2. Elevated RIGHT hemidiaphragm with patchy infiltrates in the RIGHT upper lob e and RIGHT lower lobe with partial consolidation. Opacification of the RIGHT u pper lobe and middle lobe bronchus. Recommend further evaluation with bronchosc opy. Neoplasm should be excluded. 3. Small bilateral pleural effusions. 4. Patchy infiltrates with atelectasis LEFT lower lobe. 5. Semisolid groundglass opacity LEFT upper lobe at the lung apex measuring 1. 7 x 1.1 cm. Recommend follow-up to resolution 6. Mild RIGHT to LEFT narrowing of the trachea similar in appearance to the pr ior PET/CT 2018
--- NOTE | 2024-03-29 08:04 | ECG_ITS ---
[facility] Test Date: 2024-03-29 Pat Name: Jona Rodas Department: Room: Gender: Male Clinical Administrative Coordinator: : 1950 Requested By: Soto Suarez Order Number: [id number] Gely MD: Martin Ramos M.D. Measurements Intervals [place] Rate: 93 P: 25 [place]: 131 QRS: -77 QRSD: 180 T: 36 QT: 398 QTc: 497 Interpretive Statements SINUS RHYTHM WITH OCCASIONAL VENTRICULAR PREMATURE COMPLEXES POSSIBLE LEFT ATRIAL ENLARGEMENT [-0.1mV P-WAVE IN V1/V2] RIGHT BUNDLE BRANCH BLOCK [120+ ms QRS DURATION, UPRIGHT V1, 40+ ms S IN I/aVL/V4/V5/V6] LEFT ANTERIOR FASCICULAR BLOCK [QRS AXIS <= -45, QR IN I, RS IN II] POSSIBLE SEPTAL MYOCARDIAL INFARCTION , PROBABLY OLD [30 ms Q WAVE IN V1/V2] Compared to ECG 03/29/2024 06:10:49 Ventricular premature complex(es) now present Myocardial infarct finding still present Electronically Signed On 03-29-2024 18:06:52 CDT by Martin Ramos M.D. [id number]
--- NOTE | 2024-03-29 08:04 | US_ITS ---
WS: [id number] RIGHT UPPER QUADRANT ULTRASOUND HISTORY: elevated LFTs/tbili COMPARISON: Prior gallbladder ultrasound 03/20/2006. Nondiagnostic evaluation of the RIGHT upper quadrant. None of the organs are identified. Recent CT de monstrated the colon is extending between the diaphragm and the liver. Liver is encased by the colon. RIGHT upper quadrant structures are completely obscured. Pancreas and gallbladder are not identified . Kidney is not identified. US/US gall bladder 41013 IMPRESSION: Nondiagnostic evaluation of the RIGHT upper quadrant. This is due to body habit us but predominantly by the colon extending anterior to the liver.
[2024-03-29 08:24] LABS: Lipase 11 U/L (13-60)
[2024-03-29] MEDS: iohexol 350 mg/mL 500 mL Btl (per mL) IV (09:04)
--- NOTE | 2024-03-29 09:36 | P.HP_ITS ---
Providers/Chief Complaint 2 Admitting Physician: Keisha Baker MD Primary Care Provider: Hamzah Chavez DO Chief Complaint: RESP. DISTRESS History of Present Illness Jona Rodas is a 73 year old male who was [facility] after management of back pain compression fracture, urinary retention, new onset A-fib, patient has history of phrenic nerve injury, right-sided hemidiaphragm, right-sided hemiparesis, presented with chief complaint of worsening of shortness of breath fatigue inability to ambulate for. In the ER he was diagnosed with sepsis related to pneumonia. He has been given septic bolus, antibiotics, blood pressure improving with IV fluids, he was put on BiPAP and transferred to ICU. Patient is DNR/DNI there was conversation regarding palliative care in case of further worsening but have not been able to get in touch with palliative team for now. Imaging in the ER did not show any sign of cholecystitis, CTA chest did not show PE it is considered a multi focal pneumonia Review of Systems 2 Const: Reports: fever(s), chills, body aches and night sweats Eyes: Denies: change in vision ENMT: Denies: throat pain Card: Reports: chest pain Resp: Reports: dyspnea GI: Reports: abdominal pain : Denies: flank pain Musc: Reports: back pain and extremity pain; Denies: neck pain Skin/Breast: Denies: rash Neuro: Reports: headache(s) Medications/Allergies Home Medications Medication Instructions Recorded Confirmed Last Taken Type aspirin 325 mg tablet 325 mg PO DAILY 05/03/20 03/29/24 Unknown History blood sugar diagnostic (OneTouch #200 ea 11/09/20 03/29/24 Unknown Rx Ultra Blue Test Strip) pen needle, diabetic 31 gauge x #100 ea 07/02/22 03/29/24 Unknown Rx 01/30 (Lite Touch Insulin Pen [place]) albuterol sulfate 90 mcg/actuation 2 puff inhalation Q6H PRN 07/15/22 03/29/24 Unknown Rx aerosol inhaler (Ventolin HFA) shortness of breath or wheezing #6.7 grams Mens Vitacraves Gummies 1 tab PO DAILY 03/20/24 03/29/24 Unknown History bimatoprost 0.01 % eye drops 1 drp ophthalmic (eye) DAILY 03/20/24 03/29/24 Unknown History ([place]) fluticasone 250 mcg-salmeterol 50 1 inh inhalation BID 03/20/24 03/29/24 Unknown History mcg/dose blistr powdr for inhalation (Advair Diskus) gabapentin 600 mg tablet 600 mg PO QPM 03/20/24 03/29/24 Unknown History ibuprofen 200 mg tablet 400 mg PO Q6H PRN Pain 03/20/24 03/29/24 03/20/24 History insulin degludec 100 unit/mL (3 60 unit SUBCUT QAM 03/20/24 03/29/24 03/20/24 History mL) subcutaneous pen (Tresiba FlexTouch U-100 insulin) ketoconazole 2 % topical cream 1 applic topical BID PRN Rash 03/20/24 03/29/24 Unknown History lisinopril 20 mg tablet 20 mg PO QAM 03/20/24 03/29/24 03/20/24 History naproxen sodium 220 mg tablet 220 mg PO BID PRN Pain 03/20/24 03/29/24 03/20/24 History (Aleve) nitroglycerin 0.4 mg sublingual 0.4 mg sublingual Q5M PRN Chest 03/20/24 03/29/24 Unknown History tablet (Nitrostat) Pain tamsulosin 0.4 mg capsule 0.4 mg PO QPM 03/20/24 03/29/24 Unknown History lactulose 10 gram/15 mL (15 mL) 10 g (15 mL) PO DAILY PRN 03/25/24 03/29/24 Unknown Rx oral solution constipation #600 mL metoprolol tartrate 25 mg tablet 25 mg PO BID@0900,2100 #60 tabs 03/25/24 03/29/24 Unknown Rx magnesium hydroxide 400 mg/5 mL 30 ml PO DAILY PRN Constipation 03/29/24 03/29/24 Unknown History oral suspension (Milk of Magnesia) sodium phosphates 19 gram-7 118 ml NE DAILY PRN Constipation 03/29/24 03/29/24 Unknown History gram/118 mL enema (Fleet Enema) Allergies Allergy/AdvReac Type Severity Reaction Status Date / Time allopurinol Allergy ADR-Nausea Verified 03/29/24 08:01 metformin Allergy ADR-Nausea Verified 03/29/24 08:01 pravastatin Allergy ALGY-Joint Verified 03/29/24 08:01 Pain PFSH Acute 2 PFSH: Medical History (Updated 03/29/24 @ 13:35 by Soto Case, ) Lumbar stenosis with neurogenic claudication Spine fracture Back pain Acute urinary retention Dehydration Urinary retention Dyspnea on exertion Diabetic ulcer of ankle Frequent PVCs Carotid stenosis 100% occlusion of the right internal carotid artery and right vertebral. 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 Family History Father Hypertension Parkinson disease Brother Diabetes Social History Smoking and tobacco/nicotine status: former use of tobacco/nicotine Quit status (tobacco/nicotine): has quit using Former quit date comment: AT AGE 21 Alcohol intake: never Substance/Drug Use: never Vitals/I&O/Wt Last Vital Signs Temp 98.1 F 03/29/24 06:07 Pulse 88 03/29/24 09:31 Resp 18 03/29/24 09:31 BP 111/79 03/29/24 09:31 Pulse Ox 95 03/29/24 09:31 O2 Del Method BiPAP 03/29/24 09:31 O2 Flow Rate 8 03/29/24 05:59 FiO2 65 03/29/24 09:31 03/28/24 03/29/24 03/29/24 22:59 06:59 14:59 Intake Total 3657.62 / 3657.62 Balance 3657.62 / 3657.62 Weight last 48 hrs Weight 95.254 kg Physical Exam 2 Narrative: Malnourished Right-sided hemiparesis Currently on BiPAP Able to follow commands No new focal deficit He does have left-sided facial droop Right-sided weakness of his body Strength of right side is extremely weak as compared to left A-fib without RVR Currently on BiPAP Family at the bedside Rectal sphincter tone is poor Data 03/29/24 06:20 03/29/24 06:20 Micro: Microbiology 03/29/24 06:32 Blood Culture - Preliminary Blood SPECIMEN COLLECTED 03/29/24 06:20 Blood Culture - Preliminary Blood SPECIMEN COLLECTED A&P Assessment and plan (1) Enrolled in chronic care management: (2) Right hip pain: (3) Back pain: (4) Sepsis: (5) Injury of phrenic nerve: Plan Sepsis related to multifocal pneumonia Criteria met with tachypnea tachycardia leukocytosis, patient has been started on sepsis protocol Patient with recent discharge from the hospital Will treat as hospital-acquired pneumonia Start broad-spectrum antibiotics Continue BiPAP for now Cauda equina symptoms Patient is stating that he would not go for surgical intervention He wants to manage medically, agree with rectal tube, Detailed discussion took place with the patient, is also present at the bedside, they do understand that he carries high risk for mortality morbidity on the operation table and is high risk for perioperative intubation which patient wants to avoid 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 Sanchez Added opioids along bowel regimen Bedbound secondary to multiple comorbid conditions and recent spine fracture Urine retention continue Briseno catheter urine output monitoring DNR/DNI During last visit we discussed in case of further worsening they might opt for palliative care, they have not spoken with any hospice or palliative team yet I will keep him on consistent carb diet along sliding scale Patient has chronic history of left-sided facial droop, right-sided Eliseo diaphragm, right-sided hemiparesis, these changes are chronic in nature Recently stroke workup was unremarkable I will keep him on IV fluid hydration Admit to ICU in case he would require any vasopressors Attestations 2 Medical Necessity Statement*: Continue ICU management Diagnoses Enrolled in chronic care management Z78.9 Right hip pain M25.551 Back pain M54.9 Sepsis A41.9 Injury of phrenic nerve T14.8XXA
[2024-03-29 09:53] LABS: Troponin 5 2HR 30.96 ng/L (0-15)
[2024-03-29 09:55] LABS: Troponin 5 2HR Delta -4.04 ABS# (0-10)
[2024-03-29] MEDS: sodium chloride 0.9% 1,000 ML 100 ML IV (10:44)
[2024-03-29] MEDS: HYDROmorphone 1 mg/mL INJ 1 mL 0.400000000000000022 MG IVP (11:23)
[2024-03-29] MEDS: enoxaparin 40 mg/0.4 mL Syringe SUBCUT (11:43)
[2024-03-29] MEDS: vancomycin 1,500 MG/300 ML PIGGYBACK 200 MG IV ×2 (11:44→22:47)
[2024-03-29] MEDS: sodium chloride 0.9% 1,000 ML 75 ML IV ×2 (11:45→22:50)
--- NOTE | 2024-03-29 12:04 | ECG_ITS ---
[facility] Test Date: 2024-03-29 Pat Name: Jona Rodas Department: Room: Gender: Male Customer Service Technician: : 1950 Requested By: Soto Suarez Order Number: [id number] Gely MD: Martin Ramos M.D. Measurements Intervals [place] Rate: 86 P: 13 [place]: 140 QRS: -28 QRSD: 114 T: 36 QT: 401 QTc: 482 Interpretive Statements SINUS RHYTHM LEFT VENTRICULAR HYPERTROPHY AND ST-T CHANGE [VOLTAGE CRITERIA PLUS ST/T ABNORMALITY] POSSIBLE LATERAL MYOCARDIAL INFARCTION , PROBABLY OLD [30 ms Q WAVE IN I/aVL/V5/V6] INTERPRETATION BASED ON A DEFAULT AGE OF 40 YEARS Compared to ECG 03/29/2024 06:10:49 Left ventricular hypertrophy now present ST (T wave) deviation now present Right bundle-branch block no longer present Left anterior fascicular block no longer present Myocardial infarct finding still present Electronically Signed On 03-29-2024 18:06:41 CDT by Martin Ramos M.D. [email or web address]/store/[id number]
[2024-03-29 12:44] LABS: Glucose Point of Care 89 mg/dL (70-110)
[2024-03-29] MEDS: morphine IR 15 mg Tablet PO (12:46)
[2024-03-29 13:50] LABS: Troponin 5 6HR 26.79 ng/L (0-15)
[2024-03-29 13:53] LABS: Troponin 5 6HR Delta -8.21 ng/L (0-12)
[2024-03-29 17:52] LABS: Glucose Point of Care 92 mg/dL (70-110)
[2024-03-29] MEDS: magnesium oxide 400 mg tablet PO (17:54)
[2024-03-29] MEDS: amiodarone 200 mg Tablet 400 MG PO (17:54)
[2024-03-29 20:03] LABS: Glucose Point of Care 256 mg/dL (70-110)
--- NOTE | 2024-03-29 21:05 | PC.NURSE ---
Refusing BiPAP: Pt is not agreeable to wear BiPAP, states that its just not an option for him. Pt wore the mask for approximately 5minutes before he ripped it off and stated not tonight . Dinora RT aware. This RN explained the purpose and importance of the BiPAP. Pt verbalized understanding and again states not tonight . Pt is A&Ox4, on 5L NC.
[2024-03-30] VITALS (37 sets, daily range): BP systolic 114–171; BP diastolic 72–116; PULSE 68–124; RESP 13–28; TEMP 36.4–36.8; O2SAT 91–98
--- NOTE | 2024-03-30 01:09 | PC.NURSE ---
CT: Called CT to check on time to bring pt for CT abd w/ contrast. CT reports to wait 24 hours between contrast injections. Dr. Pedro notified @1433- Dr. Pedro reports to hold off on getting CT until 24hrs.
[2024-03-30] MEDS: HYDROmorphone 1 mg/mL INJ 1 mL 0.400000000000000022 MG IVP (03:22)
--- NOTE | 2024-03-30 03:32 | PC.NURSE ---
Confusion: Pt hit call light stating that he was laying on a washer and dryer, in a store room, and that he was in the 1800's. Pt was reoriented to place, time, and situation. Shortly after pts was on the unit, she stated that he called her and asked for her to come in. also stats that his has happened before early in the morning. concerned about pts breathing- asking questions about what we can do for it. Educated on the importance and purpose of BiPAP, pt (who is now A&Ox4) admittedly refused and stated, If i wore that I'd have 0% humidity in my body .
[2024-03-30] MEDS: piperacillin-tazobactam 3.375 GM in sodium chloride 0.9% (plus) 50 ML IV ×3 (03:44→20:03)
[2024-03-30 05:32] LABS: Basophils # 0.1 10^3/uL (0.0-0.1); Basophils % 0.3 %; Hematocrit 37.1 % (37-53); Lymphocytes # 0.5 10^3/uL (0.8-4.8); Lymphocytes % 1.4 %; Mean Corpuscular HGB Conc 33.2 g/dL (30-55); Mean Corpuscular Hemoglobin 30.7 pg (27-33); Mean Corpuscular Volume 92.5 fl (82-101); Mean Platelet Volume 8.8 fL (7.4-10.4); Monocytes # 0.9 10^3/uL (0.2-0.9); Monocytes % 2.3 %; Neutrophils # 34.66 10^3/uL (1.8-7.7); Neutrophils % 92.5 %; Nucleated Red Blood Cells % 0 %; Platelet Count 434 10^3/cmm (157-399); Red Blood Count 4.01 10^6/uL (3.85-5.65); Red Cell Distribution Width 12.2 % (12.1-15.1)
[2024-03-30 05:57] LABS: Anion Gap 13.4 (5-19); Blood Urea Nitrogen 25 mg/dL (8-23); C Reactive Protein 206.8 mg/L (0.0-4.9); Calcium 8.2 mg/dL (8.5-10.5); Carbon Dioxide 25 mmol/L (22-29); Chloride 91 mmol/L (98-107); Creatinine Clr Calc Pharmacy 103.5489; Glucose 207 mg/dL (65-115); Osmolality Calculated 270 mOsm/kg (285-295); Phosphorus 3.4 mg/dL (2.5-4.5); Potassium 4.4 mmol/L (3.5-5.1); Sodium 125 mmol/L (136-145)
[2024-03-30] MEDS: magnesium oxide 400 mg tablet PO ×2 (08:49→17:36)
[2024-03-30] MEDS: insulin lispro 100 unit/1 mL SUBCUT ×4 (08:49→22:31)
[2024-03-30] MEDS: amiodarone 200 mg Tablet 400 MG PO ×2 (08:49→17:36)
[2024-03-30] MEDS: sodium chloride 0.9% 1,000 ML 75 ML IV (10:41)
[2024-03-30] MEDS: vancomycin 1,500 MG/300 ML PIGGYBACK 200 MG IV (11:39)
[2024-03-30] MEDS: enoxaparin 40 mg/0.4 mL Syringe SUBCUT (11:39)
[2024-03-30] MEDS: morphine IR 15 mg Tablet PO (11:50)
--- NOTE | 2024-03-30 13:18 | P.PN_ITS ---
Subjective 2 Subjective: Patient has a rectal tube, Briseno catheter No BM since yesterday I have asked ICU nurse to flush the tube and see if there is any output Patient is not endorsing any active discomfort Currently he is on 4 L nasal cannula Hemodynamically stable Multiple PVCs with possible A-fib atrial flutter/A-fib Can be transferred out of ICU Vitals/I&O/Wt Last Vital Signs Temp 97.6 F 03/30/24 04:30 Pulse 85 03/30/24 12:30 Resp 18 03/30/24 12:30 BP 160/116 03/30/24 12:30 Pulse Ox 96 03/30/24 12:30 O2 Del Method Nasal Cannula 03/30/24 12:30 O2 Flow Rate 4 03/30/24 12:30 FiO2 65 03/29/24 20:00 03/29/24 03/30/24 03/30/24 22:59 06:59 14:59 Intake Total 2187.5 / 6145.12 587.5 / 6732.62 1321.25 / 1321.25 Output Total 950 / 950 450 / 450 Balance 2187.5 / 6145.12 -362.5 / 5782.62 871.25 / 871.25 Weight last 48 hrs Weight 95.98 kg Weight 101.151 kg Weight 95.254 kg Physical Exam 2 Narrative: Clinical signs of dehydration improving Irregular heart rhythm PVCs Hypertensive Currently on 4 L Abdomen soft Briseno catheter in place Rectal tube in place Abdomen soft Nonfocal neuroexam Awake and alert Data 03/30/24 05:08 03/30/24 05:08 Micro: Microbiology 03/29/24 06:32 Blood Culture - Preliminary Blood NEGATIVE TO DATE 03/29/24 06:20 Blood Culture - Preliminary Blood NEGATIVE TO DATE A&P Assessment and plan (1) Enrolled in chronic care management: (2) Otitis externa: (3) Back pain: (4) Right hip pain: (5) Spine fracture: Qualifiers: Encounter type: initial encounter Fracture of vertebra location: lumbar Lumbar vertebra fracture level: L3 Fracture type: closed Fracture morphology: wedge compression Qualified Code(s): S32.030A - Wedge compression fracture of third lumbar vertebra, initial encounter for closed fracture (6) Lumbar stenosis with neurogenic claudication: (7) Pneumonia: (8) Cauda equina compression: (9) BPH without obstruction/lower urinary tract symptoms: (10) H/O urinary retention: (11) Rectal incontinence: Plan Sepsis related to pneumonia Leukocytosis trending down Oxygen requirement trending down as well Continue antibiotics Transfer out of ICU to [facility] [place] Cauda equina symptoms Not a surgical candidate Patient is well aware that he is at risk of paralysis He does not want to go for surgery Conservative management for now Rectal and urinary incontinence Patient has a rectal tube and Briseno catheter in place I would avoid rectal tube usage, he does have sacral ulcer on admission Sacral ulcer present on admission DNR/DNI Conservative management Plan to send him back to senior care once stable DNR/DNI Can use BiPAP for Rester distress Currently on 4 L nasal cannula Multiple PVCs continue amiodarone will add therapeutic Lovenox Guarded prognosis Attestations 2 Medical Necessity Statement*: Out of ICU today Diagnoses Enrolled in chronic care management Z78.9 Otitis externa H60.90 Back pain M54.9 Right hip pain M25.551 Closed wedge compression fracture of L3 vertebra, initial encounter S32.030A Encounter type: initial encounter Fracture of vertebra location: lumbar Lumbar vertebra fracture level: L3 Fracture type: closed Fracture morphology: wedge compression Lumbar stenosis with neurogenic claudication M48.062 Pneumonia J18.9 Cauda equina compression G83.4 BPH without obstruction/lower urinary tract symptoms N40.0 H/O urinary retention Z87.898 Rectal incontinence R15.9
--- NOTE | 2024-03-30 13:35 | PC.NURSE ---
EGD/Colonoscopy consent signed and in chart.
--- NOTE | 2024-03-30 14:53 | PC.NURSE ---
Report called to ANALY Brown. Patient and belongings moved to room 258-1 via bed by this nurse. at bedside.
[2024-03-30 15:25] LABS: Glucose Point of Care 277 mg/dL (70-110)
[2024-03-30 15:25] LABS: Glucose Point of Care 232 mg/dL (70-110)
[2024-03-30 17:13] LABS: Glucose Point of Care 194 mg/dL (70-110)
[2024-03-30] MEDS: gabapentin 300 mg Capsule 600 MG PO (17:36)
[2024-03-30] MEDS: metoprolol tartrate 25 mg Tablet PO ×2 (17:36→20:03)
[2024-03-30] MEDS: apixaban 5 mg Tablet PO (20:03)
[2024-03-30 20:53] LABS: Glucose Point of Care 408 mg/dL (70-110)
[2024-03-31] VITALS (12 sets, daily range): BP systolic 99–162; BP diastolic 63–92; PULSE 81–111; RESP 16–22; TEMP 36.3–36.8; O2SAT 90–94; BMI 29.1
[2024-03-31 00:01] LABS: Vancomycin Trough 9.6 ug/mL (10-15)
[2024-03-31] MEDS: vancomycin 1,500 MG/300 ML PIGGYBACK 200 MG IV ×2 (00:19→07:54)
[2024-03-31] MEDS: piperacillin-tazobactam 3.375 GM in sodium chloride 0.9% (plus) 50 ML IV ×3 (04:20→20:38)
[2024-03-31 05:28] LABS: Basophils # 0.1 10^3/uL (0.0-0.1); Basophils % 0.4 %; Eosinophils # 0.1 10^3/uL (0.0-0.8); Eosinophils % 0.2 %; Lymphocytes # 1.8 10^3/uL (0.8-4.8); Lymphocytes % 5.7 %; Mean Corpuscular HGB Conc 32.4 g/dL (30-55); Mean Corpuscular Hemoglobin 30.5 pg (27-33); Mean Corpuscular Volume 94.2 fl (82-101); Mean Platelet Volume 8.8 fL (7.4-10.4); Monocytes # 1.4 10^3/uL (0.2-0.9); Monocytes % 4.7 %; Neutrophils # 26.04 10^3/uL (1.8-7.7); Neutrophils % 85.3 %; Nucleated Red Blood Cells % 0 %; Platelet Count 545 10^3/cmm (157-399); Red Blood Count 3.61 10^6/uL (3.85-5.65); Red Cell Distribution Width 12.4 % (12.1-15.1)
[2024-03-31 05:34] LABS: White Blood Count 30.52 10^3/uL (3.29-11.43)
[2024-03-31 05:52] LABS: Anion Gap 14.4 (5-19); Blood Urea Nitrogen 41 mg/dL (8-23); Carbon Dioxide 25 mmol/L (22-29); Chloride 96 mmol/L (98-107); Creatinine Clr Calc Pharmacy 106.8474; Glucose 130 mg/dL (65-115); Osmolality Calculated 282 mOsm/kg (285-295); Potassium 5.4 mmol/L (3.5-5.1); Sodium 130 mmol/L (136-145)
[2024-03-31 07:01] LABS: Glucose Point of Care 159 mg/dL (70-110)
[2024-03-31] MEDS: magnesium oxide 400 mg tablet PO ×2 (07:53→17:12)
[2024-03-31] MEDS: amiodarone 200 mg Tablet 400 MG PO ×2 (07:54→17:12)
[2024-03-31] MEDS: lactulose oral liq 20 gm/30 mL UDC 10 GM PO (07:54)
[2024-03-31] MEDS: apixaban 5 mg Tablet PO ×2 (07:54→20:39)
[2024-03-31] MEDS: metoprolol tartrate 25 mg Tablet PO ×2 (07:54→20:39)
[2024-03-31] MEDS: insulin lispro 100 unit/1 mL SUBCUT ×3 (07:55→17:12)
[2024-03-31] MEDS: morphine IR 15 mg Tablet PO ×2 (07:55→17:13)
[2024-03-31 10:48] LABS: Glucose Point of Care 220 mg/dL (70-110)
[2024-03-31] MEDS: FUROsemide 20 mg Tablet PO (11:16)
--- NOTE | 2024-03-31 12:19 | P.PN_ITS ---
Subjective 2 Subjective: Patient seems to be aspirating his own respiratory secretions Requested speech therapy Continue Lasix PVCs with tachycardia Concern for alternating intermittent A-fib Currently patient is on Eliquis Rectal tube to be removed today Requested speech therapy Speech therapy recommends that he is high risk for all current food consistencies then we will discuss palliative care patient is agreeable with the plan Vitals/I&O/Wt Last Vital Signs Temp 97.7 F 03/31/24 07:33 Pulse 111 H 03/31/24 09:06 Resp 18 03/31/24 09:06 BP 120/74 03/31/24 07:33 Pulse Ox 94 03/31/24 09:06 O2 Del Method Nasal Cannula 03/31/24 09:06 O2 Flow Rate 3 03/31/24 09:06 FiO2 65 03/29/24 20:00 03/30/24 03/31/24 03/31/24 22:59 06:59 14:59 Intake Total 410 / 2255.00 950 / 3205.00 590 / 590 Output Total 1800 / 2250 700 / 700 Balance 410 / 1805.00 -850 / 955.00 -110 / -110 Weight last 48 hrs Weight 102.965 kg Weight 95.98 kg Physical Exam 2 Narrative: Currently on 3 L nasal cannula Multiple rhonchi crackles noted bilaterally Patient has significant dysphagia Cannot even clear his own secretions Weak cough reflex Awake and alert Nonfocal neuroexam right-sided hemiparesis Sarcopenia S1, S2 PVCs Tachycardia No new focal deficit Briseno and Rectal tube in place Does have sensations intact medial side of his thighs bilaterally Data 03/31/24 05:20 03/31/24 05:20 A&P Assessment and plan (1) Spine fracture: Qualifiers: Encounter type: initial encounter Fracture of vertebra location: lumbar Lumbar vertebra fracture level: L3 Fracture type: closed Fracture morphology: wedge compression Qualified Code(s): S32.030A - Wedge compression fracture of third lumbar vertebra, initial encounter for closed fracture (2) Lumbar stenosis with neurogenic claudication: (3) Cauda equina compression: (4) Pneumonia: (5) Peripheral edema: (6) H/O urinary retention: (7) Rectal incontinence: (8) Dysphagia: (9) Sarcopenia: (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 Discontinue vancomycin Discontinue rectal tube Continue Lasix Will request speech therapy and Occupational Therapy Significant leukocytosis Continue Zosyn I do believe patient is constantly aspirating Continue Lasix PVCs with tachycardia Intermittent A-fib Continue Eliquis along amiodarone Low-dose metoprolol added as well DNR/DNI Patient has guarded prognosis Further plan will be made after speech therapy recommendations Patient does not want feeding tube or surgery for cauda equina He is well aware that he can become paralyzed Attestations 2 Medical Necessity Statement*: To medical management Diagnoses Closed wedge compression fracture of L3 vertebra, initial encounter S32.030A Encounter type: initial encounter Fracture of vertebra location: lumbar Lumbar vertebra fracture level: L3 Fracture type: closed Fracture morphology: wedge compression Lumbar stenosis with neurogenic claudication M48.062 Cauda equina compression G83.4 Pneumonia J18.9 Peripheral edema R60.0 H/O urinary retention Z87.898 Rectal incontinence R15.9 Dysphagia R13.10 Sarcopenia M62.84 Injury of phrenic nerve T14.8XXA
--- NOTE | 2024-03-31 13:21 | PC.SOCIAL ---
IMM Update pg 2 of IMM updated and reviewed w/ patient. Copy provided and copy dated, initialed and placed in chart.
[2024-03-31] MEDS: morphine 4 mg/mL SDV 1 mL 2 MG IVP (14:42)
[2024-03-31] MEDS: ondansetron 2 mg/ML SDV 2 mL 4 MG IVP (14:42)
[2024-03-31 16:38] LABS: Glucose Point of Care 185 mg/dL (70-110)
[2024-03-31] MEDS: gabapentin 300 mg Capsule 600 MG PO (17:12)
[2024-03-31] MEDS: ALPRAZolam 0.5 mg Tablet PO (17:13)
[2024-03-31 20:42] LABS: Glucose Point of Care 181 mg/dL (70-110)
--- NOTE | 2024-03-31 22:01 | PC.NURSE ---
Patient's skin cold to touch and clammy. Unable to obtain oral or axillary temperature. Rectal temperature 97.4. Patient will not leave blankets on. Dr. Pedro notified. Dr. Pedro also updated by the following: Day shift nurse said in report that the patient's overall status has declined today. The physician's note from day shift states Patient does not want feeding tube or surgery for cauda equina. He is well aware that he can become paralyzed. Patient is an AND.
--- NOTE | 2024-03-31 22:04 | XRR_ITS ---
PROCEDURE INFORMATION: Exam: XR Chest Exam date and time: 03/31/2024 11:11 PM Age: 73 years old Clinical indication: Shortness of breath; Additional info: SOB TECHNIQUE: Imaging protocol: Radiologic exam of the chest. Views: 1 view. COMPARISON: CT angio chest PE protcl [id number] 03/29/2024 8:51 AM FINDINGS: Lungs: Zhdfs-nlphdng-mxbd-left lung base infiltrates and effusions are similar to the 03/29/2024 CTA. Pleural spaces: No pneumothorax. Heart/Mediastinum: The heart is very large. Atherosclerosis with tortuous thoracic aorta. Bones/joints: Left shoulder arthroplasty. XR/XR chest 1V portable [id number] IMPRESSION: Areas of aiebb-dvhxqjj-ryrr-left hazy atelectasis, edema or pneumonia with effusions are similar to the 03/29/2024 CTA.
--- NOTE | 2024-03-31 22:22 | ECG_ITS ---
[facility] Test Date: 2024-03-31 Pat Name: Jona Rodas Department: Room: 258 Gender: Male Strategy Manager: : 1950 Requested By: Bertin Pedro Order Number: [id number] Gely MD: Jeyson Pandya M.D. Measurements Intervals [place] Rate: 73 P: 31 AK: 167 QRS: -59 QRSD: 202 T: 31 QT: 480 QTc: 531 Interpretive Statements SINUS RHYTHM WITH OCCASIONAL SUPRAVENTRICULAR PREMATURE COMPLEXES RIGHT BUNDLE BRANCH BLOCK [120+ ms QRS DURATION, UPRIGHT V1, 40+ ms S IN I/aVL/V4/V5/V6] LEFT ANTERIOR FASCICULAR BLOCK [QRS AXIS <= -45, QR IN I, RS IN II] Compared to ECG 03/29/2024 06:49:33 Ventricular premature complex(es) no longer present Myocardial infarct finding no longer present Electronically Signed On 03-31-2024 22:46:18 CDT by Jeyson Pandya M.D. [id number]
[2024-03-31 22:36] LABS: ABG PCO2 56.1 mmHg (35-45); ABG PH Result 7.36 (7.35-7.45); Arterial Blood Gas Hematocrit 28.7 % (42-52); Base Excess ABG 5.6 mmol/L (-2.0-2.0); Blood Gas Allen Test Pos; Blood Gas Operator Identificat JB; Blood Gas Sample Site Radial, right; Blood Gas Sample Type Arterial
[2024-03-31 22:37] LABS: Oxygen Device NC
--- NOTE | 2024-03-31 23:28 | PC.NURSE ---
Called the patient's , Rabia Rodas, and gave her an update about the patient's current condition and asked if she would like to come visit the patient. She said yes and that she would arrive shortly.
[2024-03-31 23:42] LABS: Troponin(5th) Baseline 36 ng/L (0-15)
[2024-03-31 23:43] LABS: Alanine Aminotransferase 42 U/L (0-41); Albumin Level 2.7 g/dL (3.5-5.2); Alkaline Phosphatase 125 U/L (40-130); Anion Gap 9.3 (5-19); Aspartate Amino Transferase 41 U/L (0-40); Blood Urea Nitrogen 58 mg/dL (8-23); Calcium 8.1 mg/dL (8.5-10.5); Carbon Dioxide 32 mmol/L (22-29); Chloride 95 mmol/L (98-107); Creatinine Clr Calc Pharmacy 106.8474; Globulin 2.2 g/dL (1.3-4.6); Glucose 156 mg/dL (65-115); Osmolality Calculated 291 mOsm/kg (285-295); Potassium 5.3 mmol/L (3.5-5.1); Sodium 131 mmol/L (136-145); Total Bilirubin 0.5 mg/dL (0.15-1.2); Total Protein 4.9 g/dL (6.6-8.7)
[2024-03-31 23:44] LABS: Lactic Sepsis W/Reflex 1.3 mmol/L (0.5-2.2)
[2024-04-01] VITALS (8 sets, daily range): BP systolic 80–93; BP diastolic 52–62; PULSE 0–86; RESP 0–26; TEMP -17.7–36.2; O2SAT 90–91
[2024-04-01 00:07] LABS: Basophils # 0.1 10^3/uL (0.0-0.1); Basophils % 0.4 %; Eosinophils # 0.1 10^3/uL (0.0-0.8); Eosinophils % 0.5 %; Hematocrit 29.4 % (37-53); Lymphocytes % 7.6 %; Mean Corpuscular HGB Conc 32.3 g/dL (30-55); Mean Corpuscular Hemoglobin 30.4 pg (27-33); Mean Corpuscular Volume 94.2 fl (82-101); Mean Platelet Volume 8.6 fL (7.4-10.4); Monocytes # 1.4 10^3/uL (0.2-0.9); Monocytes % 5.1 %; Neutrophils # 21.02 10^3/uL (1.8-7.7); Neutrophils % 79.8 %; Nucleated Red Blood Cells % 0.1 %; Platelet Count 638 10^3/cmm (157-399); Red Blood Count 3.12 10^6/uL (3.85-5.65); Red Cell Distribution Width 12.5 % (12.1-15.1); White Blood Count 26.35 10^3/uL (3.29-11.43)
[2024-04-01 00:08] LABS: Slide Review Slide Review Perform
[2024-04-01] MEDS: atropine 1% op soln 2 mL Btl 2 DROP SUBLINGUAL ×2 (00:29→04:43)
--- NOTE | 2024-04-01 00:35 | ECG_ITS ---
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 Measurements Intervals [place] Rate: 77 P: 150 AR: 160 QRS: 246 QRSD: 201 T: 146 QT: 476 QTc: 542 Interpretive Statements ECTOPIC ATRIAL RHYTHM RIGHT AXIS DEVIATION [QRS AXIS > 100] RIGHT BUNDLE BRANCH BLOCK [120+ ms QRS DURATION, UPRIGHT V1, 40+ ms S IN I/aVL/V4/V5/V6] SEPTAL MYOCARDIAL INFARCTION , OF INDETERMINATE AGE [40+ ms Q WAVE IN V1/V2] MODERATE T-WAVE ABNORMALITY, CONSIDER LATERAL ISCHEMIA [-0.1+ mV T-WAVE IN I/aVL/V5/V6] Compared to ECG 03/31/2024 22:22:26 Ectopic atrial rhythm now present.Right-axis deviation now present Myocardial infarct finding now present.T-wave abnormality now present Possible ischemia now present.Sinus rhythm no longer present Left anterior fascicular block no longer present Electronically Signed On 04-02-2024 0:18:49 CDT by Matrin Ramos M.D. [id number]
[2024-04-01] MEDS: morphine IR 15 mg Tablet PO (00:47)
--- NOTE | 2024-04-01 00:58 | PC.NURSE ---
Contacted Dr. Pedro at 0014 and notified him of the patient's declining condition. This nurse assessed the patient at the beginning of the shift and then again at 0000 and noticed that the patient's breathing was increasingly difficult, used accessory muscles, was tachypneic, and was abdominal breathing. The patient's lung sounds have worsened as well. Notified Dr. Pedro of all of the above, as well as the patient's family's arrival and requested an order for atropine drops to help with the patient's secretions. Received order for atropine drops.
--- NOTE | 2024-04-01 01:00 | CTR_ITS ---
PROCEDURE INFORMATION: Exam: CT Chest Without Contrast; Diagnostic Exam date and time: 04/01/2024 2:55 AM Age: 73 years old Clinical indication: Other: Flank pain; Shortness of breath; Additional info: SOB, wheezing, bilateral flank hematoma TECHNIQUE: Imaging protocol: Diagnostic computed tomography of the chest without contrast. Radiation optimization: All CT scans at this facility use at least one of these dose optimization techniques: automated exposure control; mA and/or kV adjustment per patient size (includes targeted exams where dose is matched to clinical indication); or iterative reconstruction. COMPARISON: CT angio chest PE protcl [id number] 03/29/2024 8:51 AM RADIATION DOSE METRICS: Total DLP (mGy-cm): 1188.5 FINDINGS: Lungs: Large RUL atelectasis or pneumonia. Question RLL lobectomy and possible RML lobectomy. Large left basilar consolidation. Pleural spaces: Very small right apical pleural effusion. No pneumothorax. Heart: The heart is normal size. No pericardial effusion. Lymph nodes: No bulky mediastinal or hilar lymphadenopathy noted. Vasculature: Advanced diffuse vascular calcification noted. Diaphragm: Very severe right hemidiaphragm elevation. Bones/joints: Left shoulder arthroplasty. Severe spine DJD. Multiple right posterior rib nonacute deformities. Chronic thoracic spine compressions again seen. Soft tissues: Unremarkable. PROCEDURE INFORMATION: Exam: CT Abdomen And Pelvis Without Contrast Exam date and time: 04/01/2024 2:55 AM Age: 73 years old Clinical indication: Other: Flank pain; Shortness of breath; Additional info: SOB, wheezing, bilateral flank hematoma TECHNIQUE: Imaging protocol: Computed tomography of the abdomen and pelvis without contrast. Radiation optimization: All CT scans at this facility use at least one of these dose optimization techniques: automated exposure control; mA and/or kV adjustment per patient size (includes targeted exams where dose is matched to clinical indication); or iterative reconstruction. COMPARISON: CT angio chest PE protcl [id number] 03/29/2024 8:51 AM RADIATION DOSE METRICS: Total DLP (mGy-cm): 1188.5 FINDINGS: Lungs: See same-day chest CT. Liver: Unremarkable. No discrete mass. Gallbladder and bile ducts: No calcified gallstones or biliary dilation identified. Pancreas: Unremarkable with no suspicious mass. No ductal dilation. Spleen: The spleen is not enlarged. No suspicious mass is noted. Adrenal glands: Normal. No mass. Kidneys and ureters: No solid renal mass or hydronephrosis. Stomach and bowel: Very fecal filled colon and rectum. Appendix: Normal appendix Intraperitoneal space: Unremarkable. No free air. No suspicious fluid collection. Vasculature: Advanced diffuse vascular calcification noted. Lymph nodes: No enlarged lymph nodes. Urinary bladder: Bladder wall thickening. Reproductive: Unremarkable as visualized. Bones/joints: Right pubic rami fractures. Severe spine DJD. Mild L3 compression fracture of uncertain age, unchanged from 03/20/2024. Right sacral fracture unchanged. Right L5 transverse process fracture unchanged. Soft tissues: Mild diffuse anasarca. Other findings: Very large motion. CT/[place] [id number] IMPRESSION: 1. No definite acute chest trauma identified. 2. Complex lung findings as described with right-sided lung lobar resection and bilateral severe infiltrates with small right effusion. These need appropriate follow-up. Right lung loss of volume and left basilar consolidation have progressed from 3 days ago. Aspiration certainly possible. 3. No pneumothorax. Motion would obscure subtle rib fractures. A few right rib deformities were present 3 days ago. IMPRESSION: 1. Extremely limited exam due to motion and arms at side. 2. Right flank subcutaneous edema with contusion possible. 3. Right pubic rami fractures may be acute. The superior one abuts the acetabulum. Advise correlation. 4. Other nonacute fractures in lumbar spine and sacrum. 5. Diffuse subcutaneous edema with no large hematoma identified. Motion would obscure acute rib fractures. 6. Numerous chronic findings. 7. Briseno catheter present. Mild bladder wall thickening is nonspecific. 8. Constipation.
--- NOTE | 2024-04-01 01:00 | PC.NURSE ---
Dr. Pedro notified that patient's lung sounds have worsened and that they sound very wet. Also notified that patient is anxious and states that he feels like his is dying. Notified that family is at bedside. Lasix x1 ordered and one time dose of Xanax ordered due to PRN dose not being able to be given yet.
--- NOTE | 2024-04-01 01:01 | PM.CCNAC ---
Critical Care Event Note The high probability of a clinically significant, sudden or life threatening deterioration of the patient's [] system(s) required my full and direct attention, intervention and personal management. The critical care time is as shown. This time is in addition to time spent performing any reported procedures but includes the following: [x] Data and vital sign review and interpretation [x] Patient assessment, examination and intervention [x] Documentation [x] Medication orders and management Critical Care Time Code activated: No Critical Care Time (min): 35 Additional information about critical care time: - Patient was examined evening, -Currently in acute hypoxic respiratory failure with tachypnea, intercostal retractions, belly breathing, nasal flaring, on 2 L, he is alert to person, to place not to time he does report shortness of breath, no chest pain, no abdominal pain, does have gross anasarca, bilateral lower extremity edema, he denies any lightheadedness, dizziness, no nausea, no vomiting, no flank pain, no abdominal pain, -He is a DNR/DNI, confirmed with patient, -Discussed my concerns for acute respiratory failure concerning for fluid overload, will diurese him, monitoring closely -Ordered a CBC, CMP, lactic acid, ABG ? Lactic acid normal at 1.3, ? Potassium 5.3 ? Creatinine 0.6 ? White blood cell count has improved to 26.35 ? Hemoglobin 9.5 ? pH is normal 7.36 pCO2 is high at 56, with pO2 at 71 ? Developing acute hypoxic respiratory failure likely secondary to fluid overload, ? Will give him 40 mg IV Lasix with albumin, ? Blood pressure was soft, start midodrine 10 mg Q8h -Informed by nursing staff that the day physician was talking to patient and possibly family about comfort care ?will monitor closely ? Prognosis is guarded,, status is critical Coding Level of Care Code Acute Code for Chg Fwd
[2024-04-01] MEDS: ALPRAZolam 0.5 mg Tablet PO (01:11)
[2024-04-01] MEDS: ipratropium-albuterol 3 mL Neb INHALATION (01:26)
[2024-04-01 01:48] LABS: Troponin 5 2HR 36.62 ng/L (0-15); Troponin 5 2HR Delta 0.62 ABS# (0-10)
--- NOTE | 2024-04-01 02:08 | PC.NURSE ---
Ordered IV medications late due to no IV access. ED nurse in room attempting IV access currently with US machine.
[2024-04-01] MEDS: FUROsemide 10 mg/mL SDV 4mL 40 MG IVP (02:21)
[2024-04-01] MEDS: albumin 25 G/100 ML BAG 60 G IV (02:22)
--- NOTE | 2024-04-01 02:29 | PC.NURSE ---
Dr. Pedro notified that EKG potentially had some changes. He states that he has looked at them. Dr. Pedro also notified that it was received in primary nurse and charge nurse report from day shift that the day shift physician was planning on possibly discussing palliative care with family. Dr. Pedro notified that family is currently at bedside.
--- NOTE | 2024-04-01 03:12 | PC.NURSE ---
Dr. Pedro notified of the following: His pupils are now not reactive to light. he is lethargic, but he did receive that Xanax. He is nearly non-responsive. He was a little bit responsive with sternal rub. Unable to give PO Midodrine due to being lethargic.
--- NOTE | 2024-04-01 03:28 | PC.NURSE ---
Dr. Pedro notified that the patient is no longer following commands and notified of current vital signs: rectal temp 97.1, blood pressure 80/52, HR 78, RR 18, o2 91 percent on 6 liters. Ordered to continue to monitor. Family at bedside.
--- NOTE | 2024-04-01 04:05 | ECG_ITS ---
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 Measurements Intervals [place] Rate: 80 P: 31 AL: 163 QRS: -55 QRSD: 197 T: 22 QT: 450 QTc: 521 Interpretive Statements SINUS RHYTHM RIGHT BUNDLE BRANCH BLOCK [120+ ms QRS DURATION, UPRIGHT V1, 40+ ms S IN I/aVL/V4/V5/V6] LEFT ANTERIOR FASCICULAR BLOCK [QRS AXIS <= -45, QR IN I, RS IN II] SEPTAL MYOCARDIAL INFARCTION , OF INDETERMINATE AGE [40+ ms Q WAVE IN V1/V2] Compared to ECG 04/01/2024 00:35:40 Left anterior fascicular block now present Ectopic atrial rhythm no longer present Right-axis deviation no longer present T-wave abnormality no longer present Possible ischemia no longer present Myocardial infarct finding still present Electronically Signed On 04-02-2024 0:23:17 CDT by Martin Ramos M.D. [id number]
[2024-04-01] MEDS: piperacillin-tazobactam 3.375 GM in sodium chloride 0.9% (plus) 50 ML IV (04:41)
[2024-04-01 06:43] LABS: Glucose Point of Care 186 mg/dL (70-110)
--- NOTE | 2024-04-01 08:27 | PC.OT ---
HOLD OT TREATMENT TODAY DUE TO DECLINE IN STATUS
--- NOTE | 2024-04-01 11:35 | P.PN_ITS ---
Subjective 2 Subjective: Patient was transitioned to comfort care today Family is wanting 1 more day in the hospital to make up their decision whether they would opt for penitentiary tomorrow versus home Overnight events noted Nursing staff notified me about current status as well before my rounds Vitals/I&O/Wt Last Vital Signs Temp 97.1 F L 04/01/24 04:00 Pulse 86 04/01/24 08:00 Resp 20 H 04/01/24 08:00 BP 86/62 04/01/24 08:00 Pulse Ox 91 04/01/24 08:00 O2 Del Method Nasal Cannula 04/01/24 04:00 O2 Flow Rate 6 04/01/24 01:27 FiO2 65 03/29/24 20:00 03/31/24 04/01/24 04/01/24 22:59 06:59 14:59 Intake Total 0 / 634.792 150 / 784.792 50 / 50 Output Total 500 / 1200 600 / 1800 Balance -500 / -565.208 -450 / -1015.208 50 / 50 Weight last 48 hrs Weight 101.293 kg Weight 102.965 kg Physical Exam 2 Narrative: Unresponsive Currently on 3 L nasal cannula Agonal breathing Family at the bedside Data 03/31/24 23:07 03/31/24 23:07 A&P Assessment and plan (1) Need for comfort care: Plan Start comfort care Patient's family is requesting 1 more day to decide whether they would opt for penitentiary tomorrow Attestations 2 Medical Necessity Statement*: CC Diagnoses Need for comfort care
[2024-04-01] MEDS: morphine 4 mg/mL SDV 1 mL 2 MG IVP (11:42)
--- NOTE | 2024-04-01 18:31 | PC.NURSE ---
MTS and [facility]aving [facility] notified of patient's passing @1700. Patient is now a full release.
--- NOTE | 2024-04-01 21:40 | PM.DDS ---
Discharge Providers DDS Date of Admission: 03/29/24 09:28 Date Summary Completed: 04/01/24 Attending Provider at Admission: Keisha Baker MD Attending Provider at Discharge: Keisha Baker MD Primary Care Provider: DO RACHID Bautista Diagnoses Hospital Diagnoses (1) Need for comfort care: Reason for Visit Reason for Visit RESP. DISTRESS Summary Summary Summary: 74 YO male who was admitted to the hospital with signs of cauda equina, patient was deemed not a suitable candidate for surgery because he was hypoxic requiring BiPAP with significant hypoxic hypercarbic respite failure, patient started experiencing dysphagia with significant decline in functional capacity, after multiple family meetings patient and his decided to start hospice care in the hospital. Additional Data Confirmation of as documented by pronouncing clinician: no pulse, no respirations and pupils fixed and dilated Additional persons at bedside: nursing staff and social work specialist Attending/PCP notified?: I am attending Was code activated?: No Autopsy requested?: No Advance directives?: Yes Hospice patient?: Yes Discharge Plan Discharge Patient Disposition: Condition: Stable Probable Cause of Probable cause of : Cardiac arrest DS Attestations Time Spent in /Discharge Care*: less than 30 min Quality - AMI: AMI present?: No Quality - Stroke: CVA present?: No Symptom Onset Unknown: No Quality - VTE: VTE present?: No Deep Vein Thrombosis/Pulmonary Embolism Present on Admission: No Coding Level of Care Code Acute Code for Chg Fwd Diagnoses Need for comfort care
== END 2024-04-01 19:00 | disposition expired | DRG 871 ==
LOC: ER 06:16 → ICU 09:30 → MEDSURG 03-30 15:31
PROVIDERS: Family Medicine; Admitting Provider Internal Medicine; Emergency Provider Family Medicine; PCP Family Medicine; Visit Provider Internal Medicine
DX: A41.9 Sepsis, unspecified organism (principal); G93.41 Metabolic encephalopathy; J18.9 Pneumonia, unspecified organism; J80 Acute respiratory distress syndrome; J69.0 Pneumonitis due to inhalation of food and vomit; G83.4 Cauda equina syndrome; G81.91 Hemiplegia, unspecified affecting right dominant side; R65.20 Severe sepsis without septic shock; Z66 Do not resuscitate; I48.91 Unspecified atrial fibrillation; E11.51 Type 2 diabetes mellitus with diabetic peripheral angiopathy without gangrene; I65.01 Occlusion and stenosis of right vertebral artery; I65.21 Occlusion and stenosis of right carotid artery; I35.0 Nonrheumatic aortic (valve) stenosis; I10 Essential (primary) hypertension; E78.5 Hyperlipidemia, unspecified; N40.1 Benign prostatic hyperplasia with lower urinary tract symptoms; R33.8 Other retention of urine; Z96.651 Presence of right artificial knee joint; M25.551 Pain in right hip; T14.8XXD Other injury of unspecified body region, subsequent encounter; X58.XXXD Exposure to other specified factors, subsequent encounter; R13.10 Dysphagia, unspecified; E87.70 Fluid overload, unspecified; R32 Unspecified urinary incontinence; R15.9 Full incontinence of feces; M48.062 Spinal stenosis, lumbar region with neurogenic claudication; S32.030D Wedge compression fracture of third lumbar vertebra, subsequent encounter for fracture with routine healing; H60.90 Unspecified otitis externa, unspecified ear; E86.0 Dehydration; R29.810 Facial weakness; Z79.82 Long term (current) use of aspirin; Z79.4 Long term (current) use of insulin; Z74.01 Bed confinement status; Z85.71 Personal history of Hodgkin lymphoma; Z87.891 Personal history of nicotine dependence; Z51.5 Encounter for palliative care
CPT/HCPCS: 36415; 36416; 36600; 71045; 71250; 71275; 74176; 76705; 80048; 80051; 80053; 80202; 81001; 82330; 82803; 82805; 82962; 83605; 83690; 83735; 83880; 84100; 84145; 84484; 85025; 86140; 87040; 92523; 92610; 93005; 94640; 94660; 96365; 96367; 96372; 96374; 96376; 97167; 99291; J1100; J1170; J1650; J1815; J1940; J2270; J2405; J2543; J3370; J7030; J7040; J7050; P9046; Q9967